=== PATIENT | male | born 1950 | race Caucasian/White ===

== ENCOUNTER 2024-09-02 09:16 | Inpatient (IN) | payer OTHER, SELFPAY ==
[2024-09-02] VITALS (13 sets, daily range): BP systolic 128–175; BP diastolic 52–76; PULSE 62–89; RESP 16–26; TEMP 36.1–37.3; O2SAT 92–99; BMI 27.4
--- NOTE | ~2024-09-02 | XR_ITS ---
EXAMINATION: XR CHEST CLINICAL INFORMATION: SOB COMPARISON: CXR on 04/06/12 TECHNIQUE: Frontal view of the chest was obtained. FINDINGS: The cardiac silhouette is normal. There is mild diffuse bronchial wall thickening. There are no areas of consolidation. There are no pleural effusions or pneumothoraces. The bones and soft tissues are unremarkable for the patient's age. XR/XR chest 1V IMPRESSION: Bronchial wall thickening may be infectious and/or inflammatory in etiology. Electronically signed by: Alicia King MD 09/02/2024 09:57 AM [facility] RE[facility]OL[facility]
--- NOTE | ~2024-09-02 | CT_ITS ---
EXAMINATION: CT SOFT TISSUE NECK WITHOUT CONTRAST CLINICAL INFORMATION: Swelling. Difficulty swallowing. COMPARISON: CT neck dated 03/26/2007. TECHNIQUE: Contiguous axial CT images of the cervical soft tissues were obtained without contrast. Sagittal and coronal reformats were provided and reviewed. This CT examination was performed using dose optimization techniques as appropriate, variously including the following: *Automated exposure control *Adjustment of mA and/or kV according to patient size (this includes techniques or standardized protocols for targeted exams where dose is matched to indication/reason for exam; i.e. extremities or head) *Use of iterative reconstruction technique DOSE: 520 mGycm. FINDINGS: No cervical adenopathy is identified. The parotid glands are homogeneous in attenuation. The submandibular glands are normal. No contour abnormality is seen within the oral cavity or pharyngeal mucosal space. The laryngeal structures are unremarkable. The parapharyngeal fat is preserved. No extramucosal soft tissue mass or fluid collection is seen. No retropharyngeal fluid collection is seen. The thyroid gland is normal. The superior mediastinum is unremarkable. Mild emphysematous changes within the lung apices. The lung apices are otherwise clear. The mastoid air cells and visualized portions of the paranasal sinuses are well aerated. The temporomandibular joints are normal. No periapical disease is identified. No osseous abnormalities are seen. The imaged portions of the brain parenchyma are unremarkable. CT/CT soft tissue neck wo IV con IMPRESSION: Unremarkable examination. Electronically signed by: Jefferson Anderson MD 09/02/2024 12:22 PM [facility]
--- NOTE | 2024-09-02 09:54 | ED.SOB ---
HPI - SOB/Dyspnea General Chief Complaint: Dyspnea Stated Complaint: Sob, throat sore Time Seen by Provider: 09/02/24 09:40 Source: patient, family, old records reviewed and puffer tender Mode of arrival: ambulatory Limitations: no limitations History of Present Illness ED Provider: JEAN PAUL DELCID Narrative: 74 yo male with prostate cancer currently being monitored, emphysema, HTN, HLD, GERD, anemia, prior warfarin use but hx of UGIB, new afib, 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 He has a dry mouth and feels like his throat is swollen. He denies any other pain, no n/v/d. No fevers. He feels like things are swelling and now it is worse. No sick contacts reported. family reports UGIB from stomach ulcers in the past - offered watchman in may but refused MD elicited complaint: shortness of breath Pertinent past history: other Onset (ago): day(s) (7) Timing: progressively worsening Severity: moderate Exacerbating factors: lying flat and coughing Relieving factors: rest Known history of: COPD (emphysema) Associated symptoms: cough, chest congestion and other (sore throat) Treatment prior to arrival: none Related Data Home Medications ?Medication ?Instructions ?Recorded ?Confirmed amlodipine 5 mg tablet 5 mg PO BID 09/02/24 09/02/24 clopidogrel 75 mg tablet 75 mg PO DAILY 09/02/24 09/02/24 eszopiclone 2 mg tablet 2 mg PO BEDTIME Insomnia 09/02/24 09/02/24 gemfibrozil 600 mg tablet 600 mg PO BID 09/02/24 09/02/24 ipratropium 20 mcg-albuterol 100 1 puff inhalation Q4-6H PRN 09/02/24 09/02/24 mcg/actuation mist for inhalation Shortness Of Breath Or Wheezing (Combivent Respimat) lovastatin 40 mg tablet 40 mg PO DAILY 09/02/24 09/02/24 metoprolol succinate 50 mg 50 mg PO BEDTIME 09/02/24 09/02/24 tablet,extended release 24 hr metoprolol succinate 50 mg 100 mg PO DAILY 09/02/24 09/02/24 tablet,extended release 24 hr omeprazole 20 mg capsule,delayed 20 mg PO BID 09/02/24 09/02/24 release quetiapine 100 mg tablet 300 mg PO BEDTIME 09/02/24 09/02/24 tramadol 50 mg tablet 100 mg PO Q6H 09/02/24 09/02/24 Allergies Allergy/AdvReac Type Severity Reaction Status Date / Time lisinopril [LISINOPRIL] Allergy Unknown ANGIOEDEMA Verified 09/02/24 09:21 Review of Systems Review of Systems: Constitutional : No Fever, No Chills ENT/Mouth : No Hoarseness, pos sore throat, No Rhinorrhea Eyes: No Redness, No Discharge, No Vision Changes Cardiovascular : No Chest Pain, positive SOB, positive Dyspnea on Exertion, No Edema Respiratory : positive Cough, No Sputum, no Wheezing, Gastrointestinal : No Nausea, No Vomiting, No Diarrhea, No abdominal Pain Genitourinary : No Dysuria, No Hematuria Musculoskeletal : No joint pain, No Myalgias Skin : No rash Neuro : No Weakness, No Numbness, No Headache Psych : No anxiety, depression All other systems reviewed and are negative [facility] Past Medical History Attestation statement: The following information was validated with the patient. Source: obtained from family Medical History Emphysema of lung HTN (hypertension) HLD (hyperlipidemia) Prostate cancer CVA (cerebral vascular accident) Social History Social History (Updated 09/02/24 @ 10:34 by Karis Ly DO) Patient Tobacco Use Status: Current everyday Tobacco user Smoked in Last 30 Days: Yes Use of substances other than those prescribed or required for medical reasons: No Advance Directives: No Advance Directives Information Provided: Yes Physical Exam Vital Signs: Vital Signs: Last Vital Signs Temp 98.0 F 09/02/24 13:39 Pulse 67 09/02/24 13:40 Resp 18 09/02/24 13:40 BP 148/54 H 09/02/24 13:39 Pulse Ox 93 09/02/24 13:30 O2 Del Method Room Air 09/02/24 13:30 BMI result Body Mass Index 27.4 Appearance: Alert. Oriented X3. No acute distress. Eyes: Pupils equal, round and reactive to light. chronic boggy under eye area per family ENT: Pharynx dry MM, no angiodema no exudates no lesions in mouth no visible swelling Neck: Normal inspection. Neck supple. no hard lesions or mass CVS: Normal heart rate and rhythm. Pulses normal. Respiratory: No respiratory distress. Breath sounds slightly diminished Abdomen: Soft and nontender. rectal: brown stools no melena Skin: Skin warm and dry. Normal skin color. Normal skin turgor. Extremities: No lower extremity edema. No calf ttp Neuro: Oriented X 3. No motor deficit. No sensory deficit. Medications Administered Discontinued Medications Generic Name Dose Route Start Last Admin Trade Name Daksha PRN Reason Stop Dose Admin Albuterol/Ipratropium 3 ml 09/02/24 13:37 09/02/24 13:40 Albuterol/Iprat 2.5/0.5mg 3 Ml Ampul.Neb INHALE 09/02/24 13:38 3 ml ONCE ONE Administration Albuterol Sulfate 2.5 mg/ 0 mg 09/02/24 10:23 09/02/24 10:27 Albuterol/Ipratropium 3 ml INHALE 09/02/24 10:24 5 dose ONCE ONE Administration Methylprednisolone Sodium Succinate 60 mg 09/02/24 10:35 09/02/24 10:52 Methylprednisolone Sod Succ 125 Mg/2 Ml Vial IVPUSH 09/02/24 10:36 60 mg ONCE ONE Administration Pantoprazole Sodium 40 mg 09/02/24 12:00 09/02/24 12:49 Pantoprazole Sodium 40 Mg/10 Ml Vial IVPUSH 09/02/24 12:01 40 mg ONCE ONE Administration Medical Decision Making Medical Decision Making MDM Narrative: 74 yo male with prostate cancer currently being monitored, emphysema, HTN, HLD, anemia, prior warfarin use but UGIB, new afib, GERD, CVA with dysarthria on plavix here with c/o sore throat and worsening dyspnea no obvious swelling or neck lesion on exam but he feels something is swollen inside at this time labs, viral panel, strep swab, neb and IV steroids - will obtain CXR and CT neck for any mass. He has no angioedema on my exam. I need records on patient from [facility] or [facility] - we have requested them. Differential Diagnosis Differential Diagnoses: The differential diagnosis associated with the presentation includes viral syndrome, mass, URI, allergy Admission/Observation Consideration of admission/observation: Escalation of care including admission/observation considered admit for GIB, anemia, mild ANDERSON started on blood transfusion Consult Healthcare Provider Management of the patient was discussed with: Hospitalist (will admit) and Telegraph Inspector (Dr. Yonathan cervantes) Lab Data MDM Lab Attestation statement: I reviewed the patient's lab results. 09/02/24 10:40 09/02/24 10:40 Labs: Lab Results 09/02/24 09/02/24 09/02/24 Range/Units 10:40 11:33 12:06 WBC 6.4 (4.8-10.8) X10*3/uL RBC 2.83 L (4.60-5.80) X10*6/uL Hgb 7.8 L (14.0-18.0) g/dl Hct 25.5 L (42.0-52.0) % MCV 90.1 (80.0-98.0) fL MCH 27.6 (27.0-33.0) pg MCHC 30.6 L (31.0-36.0) g/dl RDW 15.9 (11.0-16.0) % Plt Count 179 (160-400) X10*3/uL MPV 10.6 (9.4-12.4) fL Immature Gran % (Auto) 0.6 H (0.0-0.4) % Neut % (Auto) 73.8 H (45-73) % Lymph % (Auto) 14.2 L (20-40) % [place] % (Auto) 9.7 (2-11) % Eos % (Auto) 1.2 (0-4) % Baso % (Auto) 0.5 (0-2) % Lymph # (Auto) 0.9 L (1.2-4.9) X10*3/uL [place] # (Auto) 0.6 (0.1-1.2) X10*3/uL Eos # (Auto) 0.1 (0.0-0.4) X10*3/uL Baso # (Auto) 0.0 (0.0-0.2) X10*3/uL Abs Immat Gran (auto) 0.04 H (0.00-0.03) X10*3/uL Absolute Neuts (auto) 4.7 (2.0-8.3) x10*3/uL Absolute Nucleated RBC 0.040 H (0.0-0.012) X10*3/uL Nucleated RBC % (auto) 0.6 H (0.0-0.2) /100WBC Sodium 145 (135-145) mmol/L Potassium 4.6 (3.3-5.1) mmol/L Chloride 115 H (96-108) mmol/L Carbon Dioxide 19 L (22-29) mmol/L Anion Gap 16 (12-20) BUN 13 (9-16) mg/dL Creatinine 1.56 H (0.5-1.4) mg/dL Estim Creat Clear Calc 40.0 Estimated GFR 44 Random Glucose 163 H (60-115) mg/dL Calcium 8.6 (8.4-10.2) mg/dL Troponin I High Sens 5.6 (<3.5-35.0) ng/L B-Natriuretic Peptide 507 H (<100) pg/mL Stool Occult Blood POSITIVE (NEGATIVE) Influenza Type A (PCR) NEGATIVE (Negative) Influenza Type B (PCR) NEGATIVE (Negative) RSV RNA Qual (PCR) NEGATIVE (Negative) SARS-CoV-2 RNA (RT-PCR) NEGATIVE (Negative) S. pyogenes GrpA RENATA Negative (Negative) Blood Type A Negative Antibody Screen NEGATIVE Crossmatch See Detail Independent Interpretation I performed an independent interpretation of an: EKG, Plain X-Ray (no swelling or mass) and CT Scan (normal) Interpretation: Rate: 66 Rhythm: aflutter [place]: normal Normal QRS complex. ST T wave : flutter waves but no overt MICHELLE qTC: 434 prior studies: no prior The study has been interpreted contemporaneously by me. . Radiology Impression Discussion of test interpretation with radiology: I have reviewed the radiologist's reading. Independent Historian Clinical information obtained from an independent historian. History obtained from or confirmed by: Other (family) Discharge Plan Discharge Clinical Impression: ABLA (acute blood loss anemia), Guaiac positive stools, ANDERSON (acute kidney injury) Patient Disposition: Admitted As Inpatient Print Language: [place] Island[place]
--- NOTE | 2024-09-02 10:14 | ECG_ITS ---
Test Reason : DYSPNEA Blood Pressure : / mmHG Vent. Rate : 066 BPM Atrial Rate : 267 BPM P-R Int : 000 ms QRS Dur : 076 ms QT Int : 414 ms P-R-T Axes : 000 038 081 degrees QTc Int : 434 ms Atrial flutter with variable A-V block Low voltage QRS Cannot rule out Anterior infarct , age undetermined Abnormal ECG When compared with ECG of 06-APR-2012 19:21, Atrial flutter has replaced Sinus rhythm Non-specific change in ST segment in Inferior leads Nonspecific T wave abnormality now evident in Anterolateral leads Referred By: Karis yL Electronically Signed By:Kan Vasquez
[2024-09-02] MEDS: Albuterol Sulfate 2.5 MG, Albuterol/Iprat 2.5/0.5MG 3 ML 3 ML INHALE (10:27)
[2024-09-02 10:46] LABS: MANUAL DIFF FLAG NO
[2024-09-02 10:47] LABS: Basophils Percent Auto 0.5 % (0-2); Eosinophils Absolute Auto 0.1 X10*3/uL (0.0-0.4); Eosinophils Percent Auto 1.2 % (0-4); Hematocrit 25.5 % (42.0-52.0); Hemoglobin 7.8 g/dl (14.0-18.0); Imm Gran Abs Auto 0.04 X10*3/uL (0.00-0.03); Imm Gran Pct Auto 0.6 % (0.0-0.4); Lymphocytes Absolute Auto 0.9 X10*3/uL (1.2-4.9); Lymphocytes Percent Auto 14.2 % (20-40); Mean Corpuscular HGB Conc 30.6 g/dl (31.0-36.0); Mean Corpuscular Hemoglobin 27.6 pg (27.0-33.0); Mean Corpuscular Volume 90.1 fL (80.0-98.0); Mean Platelet Volume 10.6 fL (9.4-12.4); Monocytes Absolute Auto 0.6 X10*3/uL (0.1-1.2); Monocytes Percent Auto 9.7 % (2-11); NRBC Pct Auto 0.6 /100WBC (0.0-0.2); Neutrophils Absolute Auto 4.7 x10*3/uL (2.0-8.3); Neutrophils Percent Auto 73.8 % (45-73); Platelet Count 179 X10*3/uL (160-400); Red Blood Count 2.83 X10*6/uL (4.60-5.80); Red Cell Distribution Width 15.9 % (11.0-16.0); White Blood Count 6.4 X10*3/uL (4.8-10.8)
[2024-09-02] MEDS: methylPREDNISolone Sod Succ 125 MG/2 ML VIAL 60 MG IVPUSH (10:52)
[2024-09-02 10:56] LABS: IDNOW Serial# 58CA691E; Strep A Nucleic Acid Negative (Negative)
[2024-09-02 11:02] LABS: Anion Gap 16 (12-20); Blood Urea Nitrogen 13 mg/dL (9-16); Calcium 8.6 mg/dL (8.4-10.2); Carbon Dioxide 19 mmol/L (22-29); Chloride 115 mmol/L (96-108); Estimated Glomerular Filt Rate 44; Glucose Random 163 mg/dL (60-115); Potassium 4.6 mmol/L (3.3-5.1); Sodium 145 mmol/L (135-145)
[2024-09-02 11:09] LABS: B Type Natriuretic Peptide 507 pg/mL (<100)
[2024-09-02 11:11] LABS: Troponin-I High Sensitivity 5.6 ng/L (<3.5-35.0)
[2024-09-02 12:02] LABS: Influenza A PCR NEGATIVE (Negative); Influenza B PCR NEGATIVE (Negative); Resp Syncy Virus RNA Qual PCR NEGATIVE (Negative); SARS COV2 PCR INHOUSE NEGATIVE (Negative)
[2024-09-02 12:23] LABS: OBS Int Ctl Valid YES; OBS1 POSITIVE (NEGATIVE)
[2024-09-02] MEDS: Pantoprazole Sodium 40 MG/10 ML VIAL IVPUSH (12:49)
[2024-09-02] MEDS: Albuterol/Iprat 2.5/0.5MG 3 ML AMPUL.NEB INHALE (13:40)
--- NOTE | 2024-09-02 13:40 | PC.NURSE ---
RBC's delivered to ED. Upon beginning treatment, computer system in need of rebooting. Once system ready, Pt and product verified with LUCY Sullivan RBC bag spiked, tubing primed and treatment programed into pump. During this Pt and family member with multitude of questions and requests for food and bathroom. This RN advises that blood transfusion is time sensitive and all needs can be addresses after treatment is started. IV tubing applied to Pt and start button hit. Pump quickly alerts to an air bubble requiring additional priming. At this time, Pt and family member demand Pt be placed on a bed reynolds urgently stating Pt cannot wait. Bed reynolds applied and priming completed. Treatment restarted without complication and Pt tolerated well. RT to bedside for eval/treatment.
--- NOTE | 2024-09-02 13:54 | PHA.MEDREC ---
Addendum entered by Vivian Guaman RPh 09/02/24 14:34: MED REC REVIEWED BY JABIER Original Note: Pharmacy Consult ? Medication Reconciliation Pharmacy has completed the medication reconciliation. Spoke to pt's family member to confirm meds.
--- NOTE | 2024-09-02 15:08 | P.HPHOSP_ITS ---
History of Present Illness Date of Service: 09/02/24 Chief Complaint: Heme positive stools 74 yo male with prostate cancer currently being monitored, emphysema, HTN, HLD, GERD, anemia, prior warfarin use but hx of UGIB, new afib, 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 He has a dry mouth and feels like his throat is swollen. Also noted to have heme-positive stools in ER. When discussed with patient (via daughter interpreting) patient has been nauseous and vomited several times in the last several days. States his stools have been dark. He continues to smoke cigarettes daily. He also notes that he has a more productive cough over the last several days. He has a history of gastric ulcer which prompted the DC of Coumadin. Daughter states takes Plavix for severe peripheral vascular disease. CT scan in the ER soft tissue neck failed to demonstrate any acute abnormalities. Chest x-ray demonstrates peribronchial wall thickening thickening question infectious etiology. Review of Systems 2 Review of Systems: Denies chest pain Denies shortness of breath Denies nausea vomiting diarrhea Denies fever chills [facility] Medical History Emphysema of lung HTN (hypertension) HLD (hyperlipidemia) Prostate cancer CVA (cerebral vascular accident) Social History Patient Tobacco Use Status: Current everyday Tobacco user Smoked in Last 30 Days: Yes Use of substances other than those prescribed or required for medical reasons: No Advance Directives: No Advance Directives Information Provided: Yes Meds Allergies Allergy/AdvReac Type Severity Reaction Status Date / Time lisinopril [LISINOPRIL] Allergy Unknown ANGIOEDEMA Verified 09/02/24 09:21 Active Medications: Current Medications Acetaminophen (Acetaminophen 325 Mg Tablet) 650 mg PO Q6H PRN PRN Reason: Pain, Mild (Pain Scale 1-3), fever or headache Albuterol/Ipratropium (Albuterol/Iprat 2.5/0.5mg 3 Ml Ampul.Neb) 3 ml INHALE Q4H PRN PRN Reason: wheezing Amlodipine Besylate (Amlodipine Besylate 5 Mg Tablet) 5 mg PO BID WILL; Protocol Calcium Carbonate (Calcium Carbonate 750 Mg Tab.Chew) 750 mg PO Q4H PRN PRN Reason: Heartburn Gemfibrozil (Gemfibrozil 600 Mg Tablet) 600 mg PO BID WILL Magnesium Hydroxide (Milk Of Magnesia 30 Ml Oral.Susp) 30 ml PO DAILY PRN PRN Reason: Constipation Melatonin (Melatonin 3 Mg Tablet) 6 mg PO BEDTIME PRN PRN Reason: Insomnia Methylprednisolone Sodium Succinate (Methylprednisolone Sod Succ 40 Mg/Ml Vial) 40 mg IVPUSH BID ONE Stop: 09/02/24 22:01 Metoprolol Succinate (Metoprolol Succinate Er 50 Mg Tab.Er.24h) 50 mg PO BEDTIME WILL; Protocol Metoprolol Succinate (Metoprolol Succinate Er 100 Mg Tab.Er.24h) 100 mg PO DAILY WILL; Protocol Nicotine (Nicotine 14 Mg Patch.Td24) 14 mg TRANSDERMA DAILY WILL Ondansetron HCl (Ondansetron Hcl 4 Mg/2 Ml Vial) 4 mg IVPUSH Q8H PRN PRN Reason: Nausea and Vomiting Pantoprazole Sodium (Pantoprazole Sodium 40 Mg/10 Ml Vial) 40 mg IVPUSH BID@0630,1630 [facility] Pravastatin Sodium (Pravastatin Sodium 40 Mg Tablet) 40 mg PO DAILY WILL Quetiapine Fumarate (Quetiapine Fumarate 300 Mg Tablet) 300 mg PO BEDTIME WILL Sodium Chloride (0.9 % Sodium Chloride Flush 3 Ml Syringe) 3 ml IVFLUSH QSHIFT WILL Tramadol HCl (Tramadol Hcl 50 Mg Tablet) 100 mg PO Q6H [facility] Home Medications ?Medication ?Instructions ?Recorded ?Confirmed ?Last Taken ?Type amlodipine 5 mg tablet 5 mg PO BID 09/02/24 09/02/24 09/02/24 09:00 History clopidogrel 75 mg tablet 75 mg PO DAILY 09/02/24 09/02/24 09/02/24 09:00 History eszopiclone 2 mg tablet 2 mg PO BEDTIME Insomnia 09/02/24 09/02/24 Unknown History gemfibrozil 600 mg tablet 600 mg PO BID 09/02/24 09/02/24 09/02/24 09:00 History ipratropium 20 mcg-albuterol 100 1 puff inhalation Q4-6H PRN 09/02/24 09/02/24 Unknown History mcg/actuation mist for inhalation Shortness Of Breath Or Wheezing (Combivent Respimat) lovastatin 40 mg tablet 40 mg PO DAILY 09/02/24 09/02/24 09/02/24 09:00 History metoprolol succinate 50 mg 50 mg PO BEDTIME 09/02/24 09/02/24 Unknown History tablet,extended release 24 hr metoprolol succinate 50 mg 100 mg PO DAILY 09/02/24 09/02/24 09/02/24 09:00 History tablet,extended release 24 hr omeprazole 20 mg capsule,delayed 20 mg PO BID 09/02/24 09/02/24 09/02/24 09:00 History release quetiapine 100 mg tablet 300 mg PO BEDTIME 09/02/24 09/02/24 Unknown History tramadol 50 mg tablet 100 mg PO Q6H 09/02/24 09/02/24 09/02/24 09:00 History Physical Exam 2 Vital Signs and Narrative: Vital Signs: Last Vital Signs Temp 98.0 F 09/02/24 13:39 Pulse 67 09/02/24 13:40 Resp 18 09/02/24 13:40 BP 148/54 H 09/02/24 13:39 Pulse Ox 93 09/02/24 13:30 O2 Del Method Room Air 09/02/24 13:30 BMI result Body Mass Index 27.4 Const: Other: Awake alert no acute distress HEENT: Other: No stridor appreciated Resp: Other: Diminished at bases with coarse rhonchi throughout Cardio: Other: No S4; positive S1-S2; no S3 murmurs rubs or gallops GI: Other: Soft nontender nondistended normoactive bowel sounds. No peritoneal signs Extrem: Other: No edema bilaterally Results Labs 09/02/24 10:40 09/02/24 10:40 Labs: Laboratory Results - last 24 hr 09/02/24 09/02/24 09/02/24 10:40 11:33 12:06 MCV 90.1 MCH 27.6 MCHC 30.6 L RDW 15.9 Plt Count 179 MPV 10.6 Immature Gran % (Auto) 0.6 H Neut % (Auto) 73.8 H Lymph % (Auto) 14.2 L [place] % (Auto) 9.7 Eos % (Auto) 1.2 Baso % (Auto) 0.5 Lymph # (Auto) 0.9 L [place] # (Auto) 0.6 Eos # (Auto) 0.1 Baso # (Auto) 0.0 Abs Immat Gran (auto) 0.04 H Absolute Neuts (auto) 4.7 Absolute Nucleated RBC 0.040 H Nucleated RBC % (auto) 0.6 H Anion Gap 16 Estim Creat Clear Calc 40.0 Estimated GFR 44 Random Glucose 163 H Calcium 8.6 Troponin I High Sens 5.6 B-Natriuretic Peptide 507 H Stool Occult Blood POSITIVE Influenza Type A (PCR) NEGATIVE Influenza Type B (PCR) NEGATIVE RSV RNA Qual (PCR) NEGATIVE SARS-CoV-2 RNA (RT-PCR) NEGATIVE S. pyogenes GrpA RENATA Negative Blood Type A Negative Antibody Screen NEGATIVE Crossmatch See Detail Imaging Radiologist's Impressions: Impressions Chest X-Ray 09/02/24 09:25 IMPRESSION: Bronchial wall thickening may be infectious and/or inflammatory in etiology. Electronically signed by: Alicia King MD 09/02/2024 09:57 AM EST RP Soft Tissue Neck CT 09/02/24 10:14 IMPRESSION: Unremarkable examination. Electronically signed by: Jefferson Anderson MD 09/02/2024 12:22 PM EST RP Assessment and Plan (1) ABLA (acute blood loss anemia): Status: Acute (2) Guaiac positive stools: Status: Acute (3) PVD (peripheral vascular disease): Status: Acute (4) ANDERSON (acute kidney injury): Status: Acute (5) COPD (chronic obstructive pulmonary disease): Qualifiers: COPD type: unspecified COPD Qualified Code(s): J44.9 - Chronic obstructive pulmonary disease, unspecified Status: Acute Plan 74 yo male with prostate cancer currently being monitored, emphysema, HTN, HLD, GERD, anemia, prior warfarin use but hx of UGIB, new afib, CVA with dysarthria on plavix presents with 7 days of worsening shortness of breath and sore throat. Workup in ER including CT of soft tissue neck failed to demonstrate any acute abnormalities. Patient noted to have an O2 requirement at this time. Also noted to be anemic requiring blood transfusion. 1. Acute blood loss anemia/guaiac positive stools -transfuse patient to maintain hemoglobin greater than or equal to 10 -IV PPI; history of GI bleed -hold Plavix and aspirin -GI consult -follow daily CBC 2. Peripheral vascular disease -hold Plavix and aspirin until GI workup complete -restart upon GI recommendations 3. Acute kidney injury -likely prerenal given limited intake -gentle volume repletion given mild elevation of BNP (will need echo) -follow renals/divalents 4. COPD exacerbation (describes worsening shortness of breath and now with O2 requirement along with productive cough ) -pulse dose Solu-Medrol -DuoNebs q.4 hours p.r.n. while awake -titrate O2 to maintain sats greater than equal to 90% -p.o. doxycycline DNR DNI Pneumatics Patient will require at least 2 midnights going forward of inpatient hospitalization for treatment of acute blood loss anemia and COPD exacerbation with blood products and specialty consultation. This can not be achieved in a lesser acute setting Quality Stroke Does the patient have a stroke diagnosis?: No VTE Prior VTE?: No VTE Risk Level:: Medical - moderate - high VTE Device Contraindication: N/A - Device Ordered VTE Drug Contraindication: Treatment Not Indicated
[2024-09-02] MEDS: Nicotine 14 MG PATCH.TD24 TRANSDERMA (15:45)
--- NOTE | 2024-09-02 16:24 | PC.NURSE ---
Pt resting comfortably with eyes closed. Pt in need of frequent reminders to keep RUE straight to allow for blood transfusion to flow continuously.
--- NOTE | 2024-09-02 17:55 | PC.NURSE ---
17:23 Blood transfusion ended. Delay in total transfusion time d/t Pt needing repeated encouragement and repositioning for proper transfusion flow. Pt tolerated treatment well VSS, A&Ox3, and afebrile.
[2024-09-02] MEDS: Lactated Ringers 1,000 ML 100 ML IVCONT (18:29)
--- NOTE | 2024-09-02 18:58 | PC.NURSE ---
Change of shift report given and care of Pt relinquished to LUCY Back.
[2024-09-02] MEDS: Metoprolol Succinate ER 50 MG TAB.ER.24H PO (20:53)
[2024-09-02] MEDS: QUEtiapine Fumarate 300 MG TABLET PO (20:54)
[2024-09-02] MEDS: amLODIPine Besylate 5 MG TABLET PO (20:54)
[2024-09-02] MEDS: gemfibroziL 600 MG TABLET PO (20:54)
[2024-09-02] MEDS: methylPREDNISolone Sod Succ 40 MG/ML VIAL IVPUSH (20:54)
[2024-09-03] VITALS (16 sets, daily range): BP systolic 129–171; BP diastolic 58–77; PULSE 63–75; RESP 12–20; TEMP 36.2–37.1; O2SAT 91–99
[2024-09-03] MEDS: Lactated Ringers 1,000 ML 100 ML IVCONT (04:39)
[2024-09-03] MEDS: Pantoprazole Sodium 40 MG/10 ML VIAL IVPUSH ×2 (05:46→16:37)
[2024-09-03 06:44] LABS: Basophils Percent Auto 0.1 % (0-2); Hemoglobin 7.1 g/dl (14.0-18.0); Imm Gran Abs Auto 0.06 X10*3/uL (0.00-0.03); Imm Gran Pct Auto 0.6 % (0.0-0.4); Lymphocytes Absolute Auto 0.4 X10*3/uL (1.2-4.9); Lymphocytes Percent Auto 3.7 % (20-40); MANUAL DIFF FLAG SCAN; Mean Corpuscular HGB Conc 30.9 g/dl (31.0-36.0); Mean Corpuscular Hemoglobin 27.5 pg (27.0-33.0); Mean Corpuscular Volume 89.1 fL (80.0-98.0); Mean Platelet Volume 11.9 fL (9.4-12.4); Monocytes Absolute Auto 0.3 X10*3/uL (0.1-1.2); Monocytes Percent Auto 2.9 % (2-11); NRBC Pct Auto 0.4 /100WBC (0.0-0.2); Neutrophils Absolute Auto 8.9 x10*3/uL (2.0-8.3); Neutrophils Percent Auto 92.7 % (45-73); Platelet Count 161 X10*3/uL (160-400); Red Blood Count 2.58 X10*6/uL (4.60-5.80); SCAN SMEAR FLAG 1; White Blood Count 9.6 X10*3/uL (4.8-10.8)
[2024-09-03 07:02] LABS: Alanine Aminotransferase 45 U/L (0-40); Albumin Level 3.6 g/dL (3.5-5.0); Alkaline Phosphatase 102 U/L (39-117); Anion Gap 15 (12-20); Aspartate Amino Transferase 49 U/L (5-37); Bilirubin Total 0.5 mg/dL (0.0-1.0); Blood Urea Nitrogen 18 mg/dL (9-16); Calcium 8.6 mg/dL (8.4-10.2); Carbon Dioxide 19 mmol/L (22-29); Chloride 114 mmol/L (96-108); Creatinine Clr Calc Pharmacy 44.5; Estimated Glomerular Filt Rate 49; Glucose Random 182 mg/dL (60-115); Potassium 4.5 mmol/L (3.3-5.1); Sodium 143 mmol/L (135-145); Total Protein 6.3 g/dL (6.5-8.0)
[2024-09-03 07:42] LABS: SLIDE REVIEW VERIFIED
--- NOTE | 2024-09-03 08:39 | PC.RT ---
RT in room to give one time neb ordered. Pt is asleep and family refused RT to wake pt to give tx. Family made aware that pt has a PRN order for nebs and can get one when he wakes up if he is in distress.
[2024-09-03] MEDS: Pravastatin Sodium 40 MG TABLET PO (08:44)
[2024-09-03] MEDS: amLODIPine Besylate 5 MG TABLET PO ×2 (08:45→20:08)
[2024-09-03] MEDS: Metoprolol Succinate ER 100 MG TAB.ER.24H PO (08:45)
[2024-09-03] MEDS: gemfibroziL 600 MG TABLET PO ×2 (08:46→20:08)
[2024-09-03] MEDS: traMADoL HCL 50 MG TABLET 100 MG PO (08:46)
[2024-09-03] MEDS: Nicotine 14 MG PATCH.TD24 TRANSDERMA (08:47)
[2024-09-03] MEDS: Albuterol Sulfate 2.5 MG, Albuterol/Iprat 2.5/0.5MG 3 ML 3 ML INHALE (09:00)
--- NOTE | 2024-09-03 10:36 | PM.EVENT ---
Event Note Date of Service: 09/03/24 Event Note: GI consult dictated Plan for EGD today for further evaluation of UGIB Agree with transfusion, ppi. Time Spent With Patient Time: Total time managing care of this patient today ____ minutes.
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
--- NOTE | 2024-09-03 11:00 | HO.PM.IMPN ---
Subjective Subjective Date of Service: 09/03/24 Interval History: f/u on gib, acute blood loos anemia Physical Exam Vital Signs: Vital Signs: Last Vital Signs Temp 98.7 F 09/03/24 10:56 Pulse 66 09/03/24 10:56 Resp 16 09/03/24 10:56 BP 143/76 H 09/03/24 10:56 Pulse Ox 94 09/03/24 07:45 O2 Del Method Nasal Cannula 09/03/24 07:45 O2 Flow Rate 2 09/03/24 07:45 BMI result Body Mass Index 27.4 General: AO X 3, no acute distress Resp: CTA bilateral CVS: S1,S2,RRR GI: +BS, NT, no distention Skin: No rash Neuro: motor grossly intact Psych: appropriate affect Objective Data Active Medications Acetaminophen (Acetaminophen 325 Mg Tablet) 650 mg PO Q6H PRN PRN Reason: Pain, Mild (Pain Scale 1-3), fever or headache Albuterol/Ipratropium (Albuterol/Iprat 2.5/0.5mg 3 Ml Ampul.Neb) 3 ml INHALE Q4H PRN PRN Reason: wheezing Amlodipine Besylate (Amlodipine Besylate 5 Mg Tablet) 5 mg PO BID [facility]; Protocol Last Admin: 09/03/24 08:45 Dose: 5 mg Documented By: BERNICE Calcium Carbonate (Calcium Carbonate 750 Mg Tab.Chew) 750 mg PO Q4H PRN PRN Reason: Heartburn Gemfibrozil (Gemfibrozil 600 Mg Tablet) 600 mg PO BID [facility] Last Admin: 09/03/24 08:46 Dose: 600 mg Documented By: BERNICE Lactated Ringer's (Lr) 1,000 mls @ 100 mls/hr IVCONT .Q10H WILL Last Admin: 09/03/24 04:39 Dose: 100 mls/hr Documented By: NED Magnesium Hydroxide (Milk Of Magnesia 30 Ml Oral.Susp) 30 ml PO DAILY PRN PRN Reason: Constipation Melatonin (Melatonin 3 Mg Tablet) 6 mg PO BEDTIME PRN PRN Reason: Insomnia Metoprolol Succinate (Metoprolol Succinate Er 50 Mg Tab.Er.24h) 50 mg PO BEDTIME [facility]; Protocol Last Admin: 09/02/24 20:53 Dose: 50 mg Documented By: NED Metoprolol Succinate (Metoprolol Succinate Er 100 Mg Tab.Er.24h) 100 mg PO DAILY [facility]; Protocol Last Admin: 09/03/24 08:45 Dose: 100 mg Documented By: BERNICE Nicotine (Nicotine 14 Mg Patch.Td24) 14 mg TRANSDERMA DAILY [facility] Last Admin: 09/03/24 08:47 Dose: 14 mg Documented By: BERNICE Ondansetron HCl (Ondansetron Hcl 4 Mg/2 Ml Vial) 4 mg IVPUSH Q8H PRN PRN Reason: Nausea and Vomiting Pantoprazole Sodium (Pantoprazole Sodium 40 Mg/10 Ml Vial) 40 mg IVPUSH BID@0630,1630 [facility] Last Admin: 09/03/24 05:46 Dose: 40 mg Documented By: NED Pravastatin Sodium (Pravastatin Sodium 40 Mg Tablet) 40 mg PO DAILY [facility] Last Admin: 09/03/24 08:44 Dose: 40 mg Documented By: BERNICE Quetiapine Fumarate (Quetiapine Fumarate 300 Mg Tablet) 300 mg PO BEDTIME [facility] Last Admin: 09/02/24 20:54 Dose: 300 mg Documented By: NED Sodium Chloride (0.9 % Sodium Chloride Flush 3 Ml Syringe) 3 ml IVFLUSH QSHIFT [facility] Last Admin: 09/03/24 07:10 Dose: Not Given Documented By: BERNICE Non-Admin Reason: IV Running Tramadol HCl (Tramadol Hcl 50 Mg Tablet) 100 mg PO Q6H [facility] Last Admin: 09/03/24 08:46 Dose: 100 mg Documented By: BERNICE Labs 09/03/24 05:48 09/03/24 05:48 Labs: Laboratory Results - last 24 hr 09/02/24 09/02/24 09/02/24 10:40 11:33 12:06 MCV MCH MCHC RDW Plt Count MPV Immature Gran % (Auto) Neut % (Auto) Lymph % (Auto) [place] % (Auto) Eos % (Auto) Baso % (Auto) Lymph # (Auto) [place] # (Auto) Eos # (Auto) Baso # (Auto) Abs Immat Gran (auto) Absolute Neuts (auto) Absolute Nucleated RBC Nucleated RBC % (auto) Smear Tech's Comments Anion Gap 16 Estim Creat Clear Calc 40.0 Estimated GFR 44 Random Glucose 163 H Calcium 8.6 Total Bilirubin AST ALT Alkaline Phosphatase Troponin I High Sens 5.6 B-Natriuretic Peptide 507 H Total Protein Albumin Stool Occult Blood POSITIVE Influenza Type A (PCR) NEGATIVE Influenza Type B (PCR) NEGATIVE RSV RNA Qual (PCR) NEGATIVE SARS-CoV-2 RNA (RT-PCR) NEGATIVE Blood Type A Negative Antibody Screen NEGATIVE Crossmatch See Detail 09/03/24 05:48 MCV 89.1 MCH 27.5 MCHC 30.9 L RDW 16.0 Plt Count 161 MPV 11.9 Immature Gran % (Auto) 0.6 H Neut % (Auto) 92.7 H Lymph % (Auto) 3.7 L [place] % (Auto) 2.9 Eos % (Auto) 0.0 Baso % (Auto) 0.1 Lymph # (Auto) 0.4 L [place] # (Auto) 0.3 Eos # (Auto) 0.0 Baso # (Auto) 0.0 Abs Immat Gran (auto) 0.06 H Absolute Neuts (auto) 8.9 H Absolute Nucleated RBC 0.040 H Nucleated RBC % (auto) 0.4 H Smear Tech's Comments VERIFIED Anion Gap 15 Estim Creat Clear Calc 44.5 Estimated GFR 49 Random Glucose 182 H Calcium 8.6 Total Bilirubin 0.5 AST 49 H ALT 45 H Alkaline Phosphatase 102 Troponin I High Sens B-Natriuretic Peptide Total Protein 6.3 L Albumin 3.6 Stool Occult Blood Influenza Type A (PCR) Influenza Type B (PCR) RSV RNA Qual (PCR) SARS-CoV-2 RNA (RT-PCR) Blood Type Antibody Screen Crossmatch Assessment and Plan (1) GI bleeding: Status: Acute Plan 74 yo male with prostate cancer currently being monitored, emphysema, HTN, HLD, GERD, anemia, prior warfarin use but hx of UGIB, new afib, CVA with dysarthria on plavix presents with 7 days of worsening shortness of breath and sore throat. Workup in ER including CT of soft tissue neck failed to demonstrate any acute abnormalities. Patient noted to have an O2 requirement at this time. Also noted to be anemic requiring blood transfusion. 1. Acute blood loss anemia/guaiac positive stools -transfuse patient to maintain hemoglobin greater than or equal to 10 -IV PPI, hold Plavix and aspirin -GI following for egd today -follow daily CBC 2. Peripheral vascular disease -hold Plavix and aspirin until GI workup complete -restart upon GI recommendations 3. Acute kidney injury -likely prerenal given limited intake -gentle volume repletion given mild elevation of BNP (will need echo) -follow renals/divalents 4. COPD exacerbation (describes worsening shortness of breath and now with O2 requirement along with productive cough ) -hold further steroid -DuoNebs q.4 hours p.r.n. while awake -titrate O2 to maintain sats greater than equal to 90% -hold doxy 5. Mild metabolic acidosis--d/t renal failure, monitor DNR DNI Pneumatics Need for inpat: GIB work, needs transfusion and egd Quality Stroke Does the patient have a stroke diagnosis?: No VTE Prior VTE?: No VTE Risk Level:: Medical - moderate - high VTE Device Contraindication: N/A - Device Ordered VTE Drug Contraindication: Treatment Not Indicated
--- NOTE | 2024-09-03 11:16 | CONS_ITS ---
DATE OF SERVICE: 09/03/2024 REFERRING PHYSICIAN: Dr. Batista REASON FOR CONSULTATION: GI bleeding. HISTORY OF PRESENT ILLNESS: The patient is a pleasant 74-year-old gentleman admitted to the hospital after presenting to the emergency room yesterday with complaints of nausea, nonbloody vomiting, and dark stools as well as shortness of breath. He has a history of peptic ulcer disease and previously underwent endoscopy many years ago documenting ulcers. He does smoke and has been on Plavix for peripheral vascular disease and complains of a dry mouth. He was evaluated in the emergency department with laboratory studies showing a hematocrit of 25.5 with no baseline available. Rectal examination showed brown stool which was Hemoccult positive, blood transfusions were ordered. The patient denies significant alcohol intake and has no family history of stomach cancer that he is aware of, the history is obtained with his son interpreting as the patient speaks [place]. PAST MEDICAL HISTORY: 1. Hypertension. 2. Hyperlipidemia. 3. Gastroesophageal reflux disease. 4. COPD. 5. Prostate cancer. 6. CVA. 7. Peptic disease as above. CURRENT MEDICATIONS: His current medication list is reviewed in the chart. ALLERGIES: LISINOPRIL. FAMILY HISTORY: This is reviewed with the patient and is noncontributory. SOCIAL HISTORY: There is no current substance abuse. He does use tobacco. REVIEW OF SYSTEMS: SKIN: No pruritus. HEENT: Negative. CARDIOPULMONARY: No shortness of breath or chest pain. GASTROINTESTINAL: As above. GENITOURINARY: Negative. NEUROPSYCHIATRIC: Negative. PHYSICAL EXAMINATION: GENERAL: Shows a pleasant male, lying comfortably in bed. VITAL SIGNS: Stable. SKIN: Anicteric. HEENT: Shows no scleral icterus. NECK: Without lymphadenopathy or thyromegaly. LUNGS: Show some diminished breath sounds. HEART: Shows a regular rate and rhythm. S1, S2. No murmur. ABDOMEN: Soft without focal masses or tenderness. Bowel sounds are present. No organomegaly is noted. EXTREMITIES: Without edema. LABORATORY DATA: Reviewed. IMAGING: EKG shows atrial flutter with variable AV block. IMPRESSION: Gastrointestinal bleeding, his presentation appears consistent with an upper gastrointestinal bleed. I agree with transfusing him as you are doing and continuing a proton pump inhibitor. I have discussed endoscopy with him for further evaluation and to assess for the source of his upper gastrointestinal bleeding, which could be peptic ulcer disease, erosive esophagitis, arteriovenous malformations, or gastric mass lesion and he understands risks and benefits and agrees to proceed. Thanks for asking me to see him. I will follow him in the hospital with you. MD JUAN LUIS Garcia/MARY / [phone]
[2024-09-03] MEDS: Albuterol/Iprat 2.5/0.5MG 3 ML AMPUL.NEB INHALE ×2 (13:55→20:19)
--- NOTE | 2024-09-03 15:33 | PC.NURSE ---
author requested dr. rodriguez to review patient ER and hospitalist reports and that patient is 91% 2 Lvia NC. and Vs results and a -flutter and that patient has bilateral base crackles, diminished throughout and respiratory wheezes on expiration in right upper lobe. Daughter at bedside. dr. rodriguez assessing patient, reviewing and speaking with daughter.
--- NOTE | 2024-09-03 16:05 | P.EN_ITS ---
Event Note Date of Service: 09/04/24 Event Note: The patient's EGD was canceled due to severe shortness of breath and hypoxia while on 2 liters of oxygen. Additional information obtained from Dr. Henry highlights a significant past medical history, including diabetes mellitus, peripheral arterial disease (PAD), COPD, gastritis, prostate cancer, hyperlipidemia, and atrial flutter. The patient presented for evaluation of left atrial appendage occlusion with a Watchman device due to a history of atrial flutter and inability to tolerate anticoagulation secondary to prior GI bleeding. He is on aspirin and Plavix for PAD. The patient denies symptoms of palpitations, dizziness, or syncope. He reports longstanding dyspnea on exertion and claudication symptoms, which have not changed recently. Recent cardiac findings include: * Last EKG: Right atrial flutter with variable conduction, heart rate of 75 bpm. * November 2023 echocardiogram: Preserved LVEF with [id number] dilation of both the left and right atria. Presently, the patient may be fluid overloaded, evidenced by positive JVD and a BNP > 500. His last hemoglobin from October 2023 was 14 g/dL. Plan: IV Lasix for fluid management and consult Cardiology to reassess the approach to atrial flutter and left atrial appendage occlusion. Monitor re spiratory status closely with ongoing oxygen therapy. Time Spent With Patient Time: Total time managing care of this patient today ____ minutes.
[2024-09-03 16:34] LABS: Hemoglobin 9.1 g/dl (14.0-18.0)
[2024-09-03] MEDS: Furosemide 40 MG/4 ML VIAL IVPUSH (16:37)
--- NOTE | 2024-09-03 16:53 | PM.EVENT ---
Event Note Date of Service: 09/03/24 Event Note: GI-Course noted as outlined in Dr. Zhang's recent note. I agree with the current plan of further transfusions and stabilization/reassessment of his cardiopulmonary status. We can reschedule his upper endoscopy once things have improved. At this time there is no indication for an urgent upper endoscopy. However, please contact us if anything changes regarding signs of active bleeding. Continue PPI and follow up of labs. Thanks Time Spent With Patient Time: Total time managing care of this patient today ____ minutes.
[2024-09-03] MEDS: QUEtiapine Fumarate 300 MG TABLET PO (20:08)
[2024-09-03] MEDS: 0.9 % Sodium Chloride Flush 3 ML SYRINGE IVFLUSH (20:09)
[2024-09-03] MEDS: Metoprolol Succinate ER 50 MG TAB.ER.24H PO (20:09)
[2024-09-04] VITALS (13 sets, daily range): BP systolic 128–170; BP diastolic 60–78; PULSE 64–70; RESP 18–20; TEMP 36.1–37; O2SAT 92–98
[2024-09-04] MEDS: Pantoprazole Sodium 40 MG/10 ML VIAL IVPUSH ×2 (05:50→15:47)
[2024-09-04 07:00] LABS: MANUAL DIFF FLAG NO
[2024-09-04 07:09] LABS: Basophils Percent Auto 0.1 % (0-2); Eosinophils Percent Auto 0.4 % (0-4); Hematocrit 27.8 % (42.0-52.0); Hemoglobin 8.8 g/dl (14.0-18.0); Imm Gran Abs Auto 0.05 X10*3/uL (0.00-0.03); Imm Gran Pct Auto 0.6 % (0.0-0.4); Lymphocytes Absolute Auto 1.1 X10*3/uL (1.2-4.9); Lymphocytes Percent Auto 12.7 % (20-40); Mean Corpuscular HGB Conc 31.7 g/dl (31.0-36.0); Mean Corpuscular Hemoglobin 27.8 pg (27.0-33.0); Mean Platelet Volume 11.8 fL (9.4-12.4); Monocytes Absolute Auto 0.7 X10*3/uL (0.1-1.2); Monocytes Percent Auto 7.8 % (2-11); NRBC Pct Auto 0.6 /100WBC (0.0-0.2); Neutrophils Absolute Auto 6.7 x10*3/uL (2.0-8.3); Neutrophils Percent Auto 78.4 % (45-73); Platelet Count 162 X10*3/uL (160-400); Red Blood Count 3.16 X10*6/uL (4.60-5.80); Red Cell Distribution Width 15.7 % (11.0-16.0); White Blood Count 8.6 X10*3/uL (4.8-10.8)
[2024-09-04 07:38] LABS: Alanine Aminotransferase 44 U/L (0-40); Albumin Level 3.6 g/dL (3.5-5.0); Alkaline Phosphatase 99 U/L (39-117); Anion Gap 10 (12-20); Aspartate Amino Transferase 52 U/L (5-37); Bilirubin Total 0.5 mg/dL (0.0-1.0); Blood Urea Nitrogen 20 mg/dL (9-16); Calcium 8.3 mg/dL (8.4-10.2); Carbon Dioxide 23 mmol/L (22-29); Chloride 114 mmol/L (96-108); Creatinine Clr Calc Pharmacy 55.7; Estimated Glomerular Filt Rate > 60; Glucose Random 111 mg/dL (60-115); Potassium 3.8 mmol/L (3.3-5.1); Sodium 143 mmol/L (135-145); Total Protein 6.3 g/dL (6.5-8.0)
[2024-09-04] MEDS: Metoprolol Succinate ER 100 MG TAB.ER.24H PO (09:46)
[2024-09-04] MEDS: gemfibroziL 600 MG TABLET PO ×2 (09:47→20:42)
[2024-09-04] MEDS: amLODIPine Besylate 5 MG TABLET PO ×2 (09:47→20:41)
[2024-09-04] MEDS: Pravastatin Sodium 40 MG TABLET PO (09:47)
[2024-09-04] MEDS: Nicotine 14 MG PATCH.TD24 TRANSDERMA (09:47)
[2024-09-04] MEDS: 0.9 % Sodium Chloride Flush 3 ML SYRINGE IVFLUSH ×3 (09:54→20:44)
--- NOTE | 2024-09-04 10:19 | P.PNIM_ITS ---
Subjective Subjective Date of Service: 09/04/24 Interval History: f/u on gib, acute blood loos anemia and dyspnea seems to have diuressed well overnight, less sob Physical Exam 2 Vital Signs: Vital Signs: Last Vital Signs Temp 97.8 F 09/04/24 07:49 Pulse 68 09/04/24 07:49 Resp 19 09/04/24 07:49 BP 143/65 H 09/04/24 07:49 Pulse Ox 93 09/04/24 07:49 O2 Del Method Nasal Cannula 09/04/24 07:49 O2 Flow Rate 2 09/04/24 07:49 BMI result Body Mass Index 27.4 General: AO X 3, no acute distress Resp: CTA bilateral CVS: S1,S2, iregular iregular, mild jvd GI: +BS, NT, no distention Skin: No rash Neuro: motor grossly intact Psych: appropriate affect Objective Data Active Medications Acetaminophen (Acetaminophen 325 Mg Tablet) 650 mg PO Q6H PRN PRN Reason: Pain, Mild (Pain Scale 1-3), fever or headache Albuterol/Ipratropium (Albuterol/Iprat 2.5/0.5mg 3 Ml Ampul.Neb) 3 ml INHALE Q4H PRN PRN Reason: wheezing Last Admin: 09/03/24 20:19 Dose: 3 ml Documented By: LARY Amlodipine Besylate (Amlodipine Besylate 5 Mg Tablet) 5 mg PO BID [facility]; Protocol Last Admin: 09/04/24 09:47 Dose: 5 mg Documented By: BERNICE Calcium Carbonate (Calcium Carbonate 750 Mg Tab.Chew) 750 mg PO Q4H PRN PRN Reason: Heartburn Furosemide (Furosemide 40 Mg/4 Ml Vial) 40 mg IVPUSH DAILY [facility]; Protocol Gemfibrozil (Gemfibrozil 600 Mg Tablet) 600 mg PO BID [facility] Last Admin: 09/04/24 09:47 Dose: 600 mg Documented By: BERNICE Magnesium Hydroxide (Milk Of Magnesia 30 Ml Oral.Susp) 30 ml PO DAILY PRN PRN Reason: Constipation Melatonin (Melatonin 3 Mg Tablet) 6 mg PO BEDTIME PRN PRN Reason: Insomnia Metoprolol Succinate (Metoprolol Succinate Er 50 Mg Tab.Er.24h) 50 mg PO BEDTIME [facility]; Protocol Last Admin: 09/03/24 20:09 Dose: 50 mg Documented By: IGLESIA Metoprolol Succinate (Metoprolol Succinate Er 100 Mg Tab.Er.24h) 100 mg PO DAILY [facility]; Protocol Last Admin: 09/04/24 09:46 Dose: 100 mg Documented By: BERNICE Nicotine (Nicotine 14 Mg Patch.Td24) 14 mg TRANSDERMA DAILY [facility] Last Admin: 09/04/24 09:47 Dose: 14 mg Documented By: BERNICE Ondansetron HCl (Ondansetron Hcl 4 Mg/2 Ml Vial) 4 mg IVPUSH Q8H PRN PRN Reason: Nausea and Vomiting Pantoprazole Sodium (Pantoprazole Sodium 40 Mg/10 Ml Vial) 40 mg IVPUSH BID@0630,1630 [facility] Last Admin: 09/04/24 05:50 Dose: 40 mg Documented By: IGLESIA Pravastatin Sodium (Pravastatin Sodium 40 Mg Tablet) 40 mg PO DAILY [facility] Last Admin: 09/04/24 09:47 Dose: 40 mg Documented By: BERNICE Quetiapine Fumarate (Quetiapine Fumarate 300 Mg Tablet) 300 mg PO BEDTIME [facility] Last Admin: 09/03/24 20:08 Dose: 300 mg Documented By: IGLESIA Sodium Chloride (0.9 % Sodium Chloride Flush 3 Ml Syringe) 3 ml IVFLUSH QSHIFT [facility] Last Admin: 09/04/24 09:54 Dose: 3 ml Documented By: BRENICE Tramadol HCl (Tramadol Hcl 50 Mg Tablet) 100 mg PO Q6H [facility] Last Admin: 09/04/24 09:55 Dose: Not Given Documented By: BERNICE Non-Admin Reason: Patient Refused Labs 09/04/24 05:58 09/04/24 05:58 Labs: Laboratory Results - last 24 hr 09/02/24 09/04/24 11:33 05:58 MCV 88.0 MCH 27.8 MCHC 31.7 RDW 15.7 Plt Count 162 MPV 11.8 Immature Gran % (Auto) 0.6 H Neut % (Auto) 78.4 H Lymph % (Auto) 12.7 L [place] % (Auto) 7.8 Eos % (Auto) 0.4 Baso % (Auto) 0.1 Lymph # (Auto) 1.1 L [place] # (Auto) 0.7 Eos # (Auto) 0.0 Baso # (Auto) 0.0 Abs Immat Gran (auto) 0.05 H Absolute Neuts (auto) 6.7 Absolute Nucleated RBC 0.050 H Nucleated RBC % (auto) 0.6 H Anion Gap 10 L Estim Creat Clear Calc 55.7 Estimated GFR > 60 Random Glucose 111 Calcium 8.3 L Total Bilirubin 0.5 AST 52 H ALT 44 H Alkaline Phosphatase 99 Total Protein 6.3 L Albumin 3.6 Blood Type A Negative Antibody Screen NEGATIVE Crossmatch See Detail Assessment and Plan (1) GI bleeding: Status: Acute Plan 74 yo male with prostate cancer currently being monitored, emphysema, HTN, HLD, GERD, anemia, prior warfarin use but hx of UGIB, new afib, CVA with dysarthria on plavix presents with 7 days of worsening shortness of breath and sore throat. Workup in ER including CT of soft tissue neck failed to demonstrate any acute abnormalities. Patient noted to have an O2 requirement at this time. Also noted to be anemic requiring blood transfusion. Acute blood loss anemia/guaiac positive stools, last hgb in october was 14 -transfuse patient to maintain hemoglobin greater than or equal to 10, so far 3 units -IV PPI, hold Plavix and aspirin -GI following, EGD was cancelled d/t sob -follow daily CBC, transfuse 1 more unit today Peripheral vascular disease -hold Plavix and aspirin until GI workup complete -restart upon GI recommendations= Acute kidney injury, likely cardiorenal syndrome, -creatine is now within normal following IV Lasix SOB, suspect heart failure exacerbation -IV Lasix -cardiology consult, may need repeat echo Hisotory of afib--Not anticoagulation due to major bleeding. He is being considered for R atrial appendage occlusion and watchman's device COPD, no acute exacerbation -continue inhalers, avoid steroid for now Mild metabolic acidosis--d/t renal failure, monitor DNR DNI Pneumatics Need for inpat: GIB work, needs transfusion and egd Quality Stroke Does the patient have a stroke diagnosis?: No VTE Prior VTE?: No VTE Risk Level:: Medical - moderate - high VTE Device Contraindication: N/A - Device Ordered VTE Drug Contraindication: Treatment Not Indicated
[2024-09-04] MEDS: Furosemide 40 MG/4 ML VIAL IVPUSH (10:46)
--- NOTE | 2024-09-04 11:22 | P.CONCA_ITS ---
History of Present Illness History of Present Illness Date of Service: 09/04/24 Requesting physician: Salvatore Zhang Chief complaint: GIB, CHF Narrative: 74-year-old gentleman with history of peptic ulcer disease in the past, peripheral vascular disease, active tobacco abuse and COPD, previous CVA in 2004 and atrial flutter presenting for acute GI bleed. It was suspected that he had upper GI blood loss and is being considered for endoscopy. He has been short of breath since admission and received some diuretics. Hemoglobin admission was 7.8. He is about to get a unit of blood. Patient admissions speaking only in the daughter helped with interpretation and gave most of the history. It appears he saw Dr. Henry at [facility] in 11/2023 and had discussion about Watchman and flutter ablation but the patient did not agree with Watchman placement. He has been on aspirin and Plavix for long time. [facility] Past Medical History Medical History (Updated 09/04/24 @ 11:28 by Kan Vasquez MD) Emphysema of lung HTN (hypertension) HLD (hyperlipidemia) Prostate cancer CVA (cerebral vascular accident) Surgical History Surgical History (Updated 09/03/24 @ 15:07 by Cintia Flores RN) Hx of prostate biopsy Hx of colonoscopy Hx of esophagogastroduodenoscopy Social History Social History Household Members: Family Housing: House Are you a primary lead caregiver to a significant other at home: No Do you presently have visiting nurse or other home services: No Patient Tobacco Use Status: Current everyday Tobacco user Tobacco use type: Cigarette Cigarettes Per Day: 6 service: No Meds Allergies Allergy/AdvReac Type Severity Reaction Status Date / Time lisinopril [LISINOPRIL] Allergy Unknown ANGIOEDEMA Verified 09/03/24 14:54 Active Medications: Current Medications Acetaminophen (Acetaminophen 325 Mg Tablet) 650 mg PO Q6H PRN PRN Reason: Pain, Mild (Pain Scale 1-3), fever or headache Albuterol/Ipratropium (Albuterol/Iprat 2.5/0.5mg 3 Ml Ampul.Neb) 3 ml INHALE Q4H PRN PRN Reason: wheezing Last Admin: 09/03/24 20:19 Dose: 3 ml Amlodipine Besylate (Amlodipine Besylate 5 Mg Tablet) 5 mg PO BID [facility]; Protocol Last Admin: 09/04/24 09:47 Dose: 5 mg Calcium Carbonate (Calcium Carbonate 750 Mg Tab.Chew) 750 mg PO Q4H PRN PRN Reason: Heartburn Furosemide (Furosemide 40 Mg/4 Ml Vial) 40 mg IVPUSH DAILY [facility]; Protocol Last Admin: 09/04/24 10:46 Dose: Not Given Gemfibrozil (Gemfibrozil 600 Mg Tablet) 600 mg PO BID [facility] Last Admin: 09/04/24 09:47 Dose: 600 mg Magnesium Hydroxide (Milk Of Magnesia 30 Ml Oral.Susp) 30 ml PO DAILY PRN PRN Reason: Constipation Melatonin (Melatonin 3 Mg Tablet) 6 mg PO BEDTIME PRN PRN Reason: Insomnia Metoprolol Succinate (Metoprolol Succinate Er 50 Mg Tab.Er.24h) 50 mg PO BEDTIME [facility]; Protocol Last Admin: 09/03/24 20:09 Dose: 50 mg Metoprolol Succinate (Metoprolol Succinate Er 100 Mg Tab.Er.24h) 100 mg PO DAILY [facility]; Protocol Last Admin: 09/04/24 09:46 Dose: 100 mg Nicotine (Nicotine 14 Mg Patch.Td24) 14 mg TRANSDERMA DAILY [facility] Last Admin: 09/04/24 09:47 Dose: 14 mg Ondansetron HCl (Ondansetron Hcl 4 Mg/2 Ml Vial) 4 mg IVPUSH Q8H PRN PRN Reason: Nausea and Vomiting Pantoprazole Sodium (Pantoprazole Sodium 40 Mg/10 Ml Vial) 40 mg IVPUSH BID@0630,1630 [facility] Last Admin: 09/04/24 05:50 Dose: 40 mg Pravastatin Sodium (Pravastatin Sodium 40 Mg Tablet) 40 mg PO DAILY [facility] Last Admin: 09/04/24 09:47 Dose: 40 mg Quetiapine Fumarate (Quetiapine Fumarate 300 Mg Tablet) 300 mg PO BEDTIME [facility] Last Admin: 09/03/24 20:08 Dose: 300 mg Sodium Chloride (0.9 % Sodium Chloride Flush 3 Ml Syringe) 3 ml IVFLUSH QSHIFT [facility] Last Admin: 09/04/24 09:54 Dose: 3 ml Tramadol HCl (Tramadol Hcl 50 Mg Tablet) 100 mg PO Q6H [facility] Last Admin: 09/04/24 09:55 Dose: Not Given Home Medications ?Medication ?Instructions ?Recorded ?Confirmed ?Last Taken ?Type amlodipine 5 mg tablet 5 mg PO BID 09/02/24 09/02/24 09/02/24 09:00 History clopidogrel 75 mg tablet 75 mg PO DAILY 09/02/24 09/02/24 09/02/24 09:00 History eszopiclone 2 mg tablet 2 mg PO BEDTIME Insomnia 09/02/24 09/02/24 Unknown History gemfibrozil 600 mg tablet 600 mg PO BID 09/02/24 09/02/24 09/02/24 09:00 History ipratropium 20 mcg-albuterol 100 1 puff inhalation Q4-6H PRN 09/02/24 09/02/24 Unknown History mcg/actuation mist for inhalation Shortness Of Breath Or Wheezing (Combivent Respimat) lovastatin 40 mg tablet 40 mg PO DAILY 09/02/24 09/02/24 09/02/24 09:00 History metoprolol succinate 50 mg 50 mg PO BEDTIME 09/02/24 09/02/24 Unknown History tablet,extended release 24 hr metoprolol succinate 50 mg 100 mg PO DAILY 09/02/24 09/02/24 09/02/24 09:00 History tablet,extended release 24 hr omeprazole 20 mg capsule,delayed 20 mg PO BID 09/02/24 09/02/24 09/02/24 09:00 History release quetiapine 100 mg tablet 300 mg PO BEDTIME 09/02/24 09/02/24 Unknown History tramadol 50 mg tablet 100 mg PO Q6H 09/02/24 09/02/24 09/02/24 09:00 History Physical Exam 2 Vital Signs: Vital Signs: Last Vital Signs Temp 98.6 F 09/04/24 11:00 Pulse 68 09/04/24 11:00 Resp 18 09/04/24 11:00 BP 136/62 09/04/24 11:00 Pulse Ox 95 09/04/24 10:27 O2 Del Method Room Air 09/04/24 10:27 O2 Flow Rate 2 09/04/24 07:49 BMI result Body Mass Index 27.4 GENERAL APPEARANCE: Short of breath, using accessory muscles. NECK: no carotid bruit, ++ jugular venous distention. SKIN: no suspicious lesions, warm and dry. HEART: no murmurs, regular rate and rhythm. LUNGS: Crackles right more than left base. ABDOMEN: soft, nontender. EXTREMITIES: Trace edema. PERIPHERAL PULSES: equal. NEUROLOGIC: No gross deficits, AAO X 3 Objective Labs and Meds 09/04/24 05:58 09/04/24 05:58 Lab results: Laboratory Results - last 24 hr 09/02/24 09/03/24 09/04/24 11:33 16:23 05:58 WBC 8.6 RBC 3.16 L D Hgb 9.1 L D 8.8 L Hct 27.8 L D MCV 88.0 MCH 27.8 MCHC 31.7 RDW 15.7 Plt Count 162 MPV 11.8 Immature Gran % (Auto) 0.6 H Neut % (Auto) 78.4 H Lymph % (Auto) 12.7 L [place] % (Auto) 7.8 Eos % (Auto) 0.4 Baso % (Auto) 0.1 Lymph # (Auto) 1.1 L [place] # (Auto) 0.7 Eos # (Auto) 0.0 Baso # (Auto) 0.0 Abs Immat Gran (auto) 0.05 H Absolute Neuts (auto) 6.7 Absolute Nucleated RBC 0.050 H Nucleated RBC % (auto) 0.6 H Sodium 143 Potassium 3.8 Chloride 114 H Carbon Dioxide 23 Anion Gap 10 L BUN 20 H Creatinine 1.12 Estim Creat Clear Calc 55.7 Estimated GFR > 60 Random Glucose 111 Calcium 8.3 L Total Bilirubin 0.5 AST 52 H ALT 44 H Alkaline Phosphatase 99 Total Protein 6.3 L Albumin 3.6 Blood Type A Negative Antibody Screen NEGATIVE Crossmatch See Detail Assessment and Plan (1) GI bleeding: Status: Acute (2) Acute heart failure: Status: Acute (3) PVD (peripheral vascular disease): Status: Acute Plan Pleasant 74 year gentleman who is presenting with acute blood loss anemia and congestive heart failure. Clinically volume overloaded. Lasix 40 mg IV b.i.d.. Hold aspirin and Plavix. Currently not ready for any procedures. We will reassess tomorrow morning. Previously had stroke and due to GI bleeding was taken off the anticoagulation. He had a discussion about Watchman with Dr. Henry but he did not agree with the procedure because he was told that he will need to stay on anticoagulation for 1-1/2 month and sometimes device related issues can happen where anticoagulation can not be stopped. I had a detailed discussion with the daughter and I have explained to her that this is a complex issue unfortunately. Being in atrial flutter obviously puts him at a risk of stroke and is high-risk for stroke due to high CHADS-VASc score and previous stroke. Aspirin and Plavix obviously does not help in this scenario. We will wait for endoscopy and we can make some decisions after that. If there is something treatable found then we can discuss with GI whether anticoagulation is an option. In that case Xarelto will be a better choice because there is some data about peripheral vascular disease with low-dose Xarelto and maybe there is some benefit for PVD as well as stroke prevention. Thank you for allowing me to participate in the care of your patient. Please feel free to contact me if you have any questions. Procedures Date of Service Date of Service: 09/04/24
--- NOTE | 2024-09-04 15:42 | P.PNGI_ITS ---
Subjective Subjective Date of Service: 09/04/24 Interval History: breathing easier today no bleeding reported overnight tolerating diet sister present, helping with translation Critical Care Time (minutes): 0 Physical Exam 2 Vital Signs: Vital Signs: Last Vital Signs Temp 98.5 F 09/04/24 15:22 Pulse 64 09/04/24 15:22 Resp 18 09/04/24 15:22 BP 148/70 H 09/04/24 15:22 Pulse Ox 97 09/04/24 15:22 O2 Del Method Room Air 09/04/24 15:22 O2 Flow Rate 2 09/04/24 11:45 BMI result Body Mass Index 27.4 GI: Other: abdomen is soft and nontender Objective Data Labs 09/04/24 05:58 09/04/24 05:58 Procedures Date of Service Date of Service: 09/04/24 Progress Note: A&P Assessment and plan (1) GI bleeding: Status: Acute Assessment and Plan: appears improved needs egd before resuming antiplatelets or AC, to be done when medically cleared. continue ppi Time Spent With Patient Time: Total time managing care of this patient today ____ minutes. Quality Stroke Does the patient have a stroke diagnosis?: No VTE Prior VTE?: No VTE Risk Level:: Medical - moderate - high VTE Device Contraindication: N/A - Device Ordered VTE Drug Contraindication: Treatment Not Indicated
[2024-09-04] MEDS: Metoprolol Succinate ER 50 MG TAB.ER.24H PO (20:41)
[2024-09-04] MEDS: QUEtiapine Fumarate 300 MG TABLET PO (20:41)
[2024-09-05 03:36] VITALS: BP 126/71; PULSE 69; RESP 18; TEMP 36.8; O2SAT 92
[2024-09-05] MEDS: Pantoprazole Sodium 40 MG/10 ML VIAL IVPUSH (06:03)
[2024-09-05 06:35] LABS: MANUAL DIFF FLAG NO
[2024-09-05 06:49] LABS: Basophils Percent Auto 0.4 % (0-2); Eosinophils Absolute Auto 0.2 X10*3/uL (0.0-0.4); Eosinophils Percent Auto 2.3 % (0-4); Hemoglobin 11.4 g/dl (14.0-18.0); Imm Gran Abs Auto 0.03 X10*3/uL (0.00-0.03); Imm Gran Pct Auto 0.4 % (0.0-0.4); Lymphocytes Absolute Auto 1.5 X10*3/uL (1.2-4.9); Mean Corpuscular HGB Conc 32.6 g/dl (31.0-36.0); Mean Corpuscular Hemoglobin 28.4 pg (27.0-33.0); Mean Corpuscular Volume 87.3 fL (80.0-98.0); Mean Platelet Volume 11.1 fL (9.4-12.4); Monocytes Absolute Auto 0.8 X10*3/uL (0.1-1.2); Monocytes Percent Auto 12.3 % (2-11); NRBC Pct Auto 0.4 /100WBC (0.0-0.2); Neutrophils Absolute Auto 4.3 x10*3/uL (2.0-8.3); Neutrophils Percent Auto 62.6 % (45-73); Platelet Count 164 X10*3/uL (160-400); Red Blood Count 4.01 X10*6/uL (4.60-5.80); Red Cell Distribution Width 15.3 % (11.0-16.0); White Blood Count 6.8 X10*3/uL (4.8-10.8)
[2024-09-05 07:03] LABS: Alanine Aminotransferase 40 U/L (0-40); Albumin Level 3.5 g/dL (3.5-5.0); Alkaline Phosphatase 101 U/L (39-117); Anion Gap 13 (12-20); Aspartate Amino Transferase 52 U/L (5-37); Bilirubin Total 0.8 mg/dL (0.0-1.0); Blood Urea Nitrogen 21 mg/dL (9-16); Calcium 8.7 mg/dL (8.4-10.2); Carbon Dioxide 23 mmol/L (22-29); Chloride 111 mmol/L (96-108); Creatinine Clr Calc Pharmacy 57.2; Estimated Glomerular Filt Rate > 60; Glucose Random 114 mg/dL (60-115); Potassium 3.4 mmol/L (3.3-5.1); Sodium 144 mmol/L (135-145); Total Protein 6.2 g/dL (6.5-8.0)
[2024-09-05 07:46] VITALS: BP 131/82; PULSE 65; RESP 17; TEMP 37.5; O2SAT 96
[2024-09-05] MEDS: Furosemide 40 MG/4 ML VIAL IVPUSH ×2 (09:20→12:07)
[2024-09-05] MEDS: Nicotine 14 MG PATCH.TD24 TRANSDERMA (09:20)
[2024-09-05] MEDS: Metoprolol Succinate ER 100 MG TAB.ER.24H PO (09:21)
[2024-09-05] MEDS: gemfibroziL 600 MG TABLET PO ×2 (09:21→21:21)
[2024-09-05] MEDS: amLODIPine Besylate 5 MG TABLET PO ×2 (09:21→21:21)
[2024-09-05] MEDS: Pravastatin Sodium 40 MG TABLET PO (09:21)
[2024-09-05] MEDS: 0.9 % Sodium Chloride Flush 3 ML SYRINGE IVFLUSH ×2 (09:22→21:22)
--- NOTE | 2024-09-05 10:51 | PM.PNCARD ---
Subjective Subjective Date of Service: 09/05/24 Interval history: Seen examined at bedside. Daughter was present at bedside too. Feeling better. For endoscopy today. Physical Exam Vital Signs: Last Vital Signs Temp 99.5 F 09/05/24 07:46 Pulse 65 09/05/24 07:46 Resp 17 09/05/24 07:46 BP 131/82 09/05/24 07:46 Pulse Ox 96 09/05/24 07:46 O2 Del Method Room Air 09/05/24 07:46 O2 Flow Rate 2 09/04/24 11:45 BMI result Body Mass Index 27.4 GENERAL APPEARANCE: In no acute distress. NECK: no carotid bruit, mild jugular venous distention. SKIN: no suspicious lesions, warm and dry. HEART: no murmurs, regular rate and rhythm. LUNGS: Crackles right base. ABDOMEN: soft, nontender. EXTREMITIES: Trace edema. PERIPHERAL PULSES: equal. NEUROLOGIC: No gross deficits, AAO X 3 Objective Labs and Meds 09/05/24 05:34 09/05/24 05:35 Lab results: Laboratory Results - last 24 hr 09/02/24 09/05/24 09/05/24 11:33 05:34 05:35 WBC 6.8 RBC 4.01 L D Hgb 11.4 L D Hct 35.0 L D MCV 87.3 MCH 28.4 MCHC 32.6 RDW 15.3 Plt Count 164 MPV 11.1 Immature Gran % (Auto) 0.4 Neut % (Auto) 62.6 Lymph % (Auto) 22.0 [place] % (Auto) 12.3 H Eos % (Auto) 2.3 Baso % (Auto) 0.4 Lymph # (Auto) 1.5 [place] # (Auto) 0.8 Eos # (Auto) 0.2 Baso # (Auto) 0.0 Abs Immat Gran (auto) 0.03 Absolute Neuts (auto) 4.3 Absolute Nucleated RBC 0.030 H Nucleated RBC % (auto) 0.4 H Sodium 144 Potassium 3.4 Chloride 111 H Carbon Dioxide 23 Anion Gap 13 BUN 21 H Creatinine 1.09 Estim Creat Clear Calc 57.2 Estimated GFR > 60 Random Glucose 114 Calcium 8.7 Total Bilirubin 0.8 AST 52 H ALT 40 Alkaline Phosphatase 101 Total Protein 6.2 L Albumin 3.5 Crossmatch See Detail Progress Note: A&P Assessment and plan (1) Acute heart failure: Status: Acute (2) GI bleeding: Status: Acute Plan [age] year gentleman with acute GI bleed likely upper GI, anemia and heart failure. He has been transfused and being diuresed. We will give him a 2nd dose of Lasix today around noon time. Intermediate risk to go for endoscopy today. We will decide about antiplatelets/anticoagulants after endoscopy has been performed. If it definitive treatment is possible then I would favor giving him Xarelto rather than aspirin and Plavix. This will need some more discussion with the patient and daughter. Thank you for allowing me to participate in the care of your patient. Please feel free to contact me if you have any questions. Time Spent With Patient Time: Total time managing care of this patient today ____ minutes. Progress Note: Quality Stroke Does the patient have a stroke diagnosis?: No Procedures Date of Service Date of Service: 09/05/24
[2024-09-05 11:40] VITALS: BP 125/83; PULSE 71; RESP 18; TEMP 37.6; O2SAT 98
--- NOTE | 2024-09-05 11:42 | P.PNIM_ITS ---
Subjective Subjective Date of Service: 09/05/24 Interval History: f/u on gib, acute blood loos anemia and dyspnea Patient is feeling much better, no sob,off oxygen an Physical Exam 2 Vital Signs: Vital Signs: Last Vital Signs Temp 99.6 F 09/05/24 11:40 Pulse 71 09/05/24 11:40 Resp 18 09/05/24 11:40 BP 125/83 09/05/24 11:40 Pulse Ox 98 09/05/24 11:40 O2 Del Method Room Air 09/05/24 11:40 O2 Flow Rate 2 09/04/24 11:45 BMI result Body Mass Index 27.4 Const: Other: General: AO X 3, no acute distress Resp: CTA bilateral CVS: S1,S2, iregula iregular, +JVD but better GI: +BS, NT, no distention Skin: No rash Neuro: motor grossly intact Psych: appropriate affect Objective Data Active Medications Acetaminophen (Acetaminophen 325 Mg Tablet) 650 mg PO Q6H PRN PRN Reason: Pain, Mild (Pain Scale 1-3), fever or headache Albuterol/Ipratropium (Albuterol/Iprat 2.5/0.5mg 3 Ml Ampul.Neb) 3 ml INHALE Q4H PRN PRN Reason: wheezing Last Admin: 09/03/24 20:19 Dose: 3 ml Documented By: LARY Amlodipine Besylate (Amlodipine Besylate 5 Mg Tablet) 5 mg PO BID [facility]; Protocol Last Admin: 09/05/24 09:21 Dose: 5 mg Documented By: JOHNATHON Calcium Carbonate (Calcium Carbonate 750 Mg Tab.Chew) 750 mg PO Q4H PRN PRN Reason: Heartburn Furosemide (Furosemide 40 Mg/4 Ml Vial) 40 mg IVPUSH DAILY [facility]; Protocol Last Admin: 09/05/24 09:20 Dose: 40 mg Documented By: JOHNATHON Furosemide (Furosemide 40 Mg/4 Ml Vial) 40 mg IVPUSH ONCE ONE; Protocol Stop: 09/05/24 12:01 Gemfibrozil (Gemfibrozil 600 Mg Tablet) 600 mg PO BID [facility] Last Admin: 09/05/24 09:21 Dose: 600 mg Documented By: JOHNATHON Magnesium Hydroxide (Milk Of Magnesia 30 Ml Oral.Susp) 30 ml PO DAILY PRN PRN Reason: Constipation Melatonin (Melatonin 3 Mg Tablet) 6 mg PO BEDTIME PRN PRN Reason: Insomnia Metoprolol Succinate (Metoprolol Succinate Er 50 Mg Tab.Er.24h) 50 mg PO BEDTIME [facility]; Protocol Last Admin: 09/04/24 20:41 Dose: 50 mg Documented By: IGLESIA Metoprolol Succinate (Metoprolol Succinate Er 100 Mg Tab.Er.24h) 100 mg PO DAILY [facility]; Protocol Last Admin: 09/05/24 09:21 Dose: 100 mg Documented By: JOHNATHON Nicotine (Nicotine 14 Mg Patch.Td24) 14 mg TRANSDERMA DAILY [facility] Last Admin: 09/05/24 09:20 Dose: 14 mg Documented By: JOHNATHON Ondansetron HCl (Ondansetron Hcl 4 Mg/2 Ml Vial) 4 mg IVPUSH Q8H PRN PRN Reason: Nausea and Vomiting Pantoprazole Sodium (Pantoprazole Sodium 40 Mg/10 Ml Vial) 40 mg IVPUSH BID@0630,1630 [facility] Last Admin: 09/05/24 06:03 Dose: 40 mg Documented By: IGLESIA Pravastatin Sodium (Pravastatin Sodium 40 Mg Tablet) 40 mg PO DAILY [facility] Last Admin: 09/05/24 09:21 Dose: 40 mg Documented By: JOHNATHON Quetiapine Fumarate (Quetiapine Fumarate 300 Mg Tablet) 300 mg PO BEDTIME [facility] Last Admin: 09/04/24 20:41 Dose: 300 mg Documented By: IGLESIA Sodium Chloride (0.9 % Sodium Chloride Flush 3 Ml Syringe) 3 ml IVFLUSH QSHIFT [facility] Last Admin: 09/05/24 09:22 Dose: 3 ml Documented By: JOHNATHON Tramadol HCl (Tramadol Hcl 50 Mg Tablet) 100 mg PO Q6H [facility] Last Admin: 09/05/24 09:21 Dose: Not Given Documented By: JOHNATHON Non-Admin Reason: Patient Refused Labs 09/05/24 05:34 09/05/24 05:35 Labs: Laboratory Results - last 24 hr 09/02/24 09/05/24 09/05/24 11:33 05:34 05:35 MCV 87.3 MCH 28.4 MCHC 32.6 RDW 15.3 Plt Count 164 MPV 11.1 Immature Gran % (Auto) 0.4 Neut % (Auto) 62.6 Lymph % (Auto) 22.0 [place] % (Auto) 12.3 H Eos % (Auto) 2.3 Baso % (Auto) 0.4 Lymph # (Auto) 1.5 [place] # (Auto) 0.8 Eos # (Auto) 0.2 Baso # (Auto) 0.0 Abs Immat Gran (auto) 0.03 Absolute Neuts (auto) 4.3 Absolute Nucleated RBC 0.030 H Nucleated RBC % (auto) 0.4 H Anion Gap 13 Estim Creat Clear Calc 57.2 Estimated GFR > 60 Random Glucose 114 Calcium 8.7 Total Bilirubin 0.8 AST 52 H ALT 40 Alkaline Phosphatase 101 Total Protein 6.2 L Albumin 3.5 Crossmatch See Detail Assessment and Plan (1) GI bleeding: Status: Acute Plan 74 yo male with prostate cancer currently being monitored, emphysema, HTN, HLD, GERD, anemia, prior warfarin use but hx of UGIB, new afib, CVA with dysarthria on plavix presents with 7 days of worsening shortness of breath and sore throat. Workup in ER including CT of soft tissue neck failed to demonstrate any acute abnormalities. Patient noted to have an O2 requirement at this time. Also noted to be anemic requiring blood transfusion. Acute blood loss anemia/guaiac positive stools, last hgb in october was 14 -transfuse patient to maintain hemoglobin greater than or equal to 10, so far 3 units -IV PPI, hold Plavix and aspirin -GI following, EGD planned today -follow cbc, Peripheral vascular disease -hold Plavix and aspirin until GI workup complete -restart upon GI recommendations Acute kidney injury, likely cardiorenal syndrome, resolved -creatine is now within normal following IV Lasix SOB, suspect heart failure exacerbation with low EF -IV Lasix, change to PO tomorrow -cardiology following, Hisotory of afib--Not anticoagulation due to major bleeding. He is being considered for R atrial appendage occlusion and watchman's device COPD, no acute exacerbation -continue inhalers, avoid steroid for now Mild metabolic acidosis--d/t renal failure, monitor DNR DNI Pneumatics Need for inpat: GIB work, needs transfusion and egd Quality Stroke Does the patient have a stroke diagnosis?: No VTE Prior VTE?: No VTE Risk Level:: Medical - moderate - high VTE Device Contraindication: N/A - Device Ordered VTE Drug Contraindication: Treatment Not Indicated
--- NOTE | 2024-09-05 13:30 | MHC.CM.PN ---
per rounds pt to have an egd today may dc later today plan is for home
--- NOTE | 2024-09-05 13:32 | MHC.CM.PN ---
Addendum entered by Shea Dwyer 09/07/24 13:39: NOTE ON WRONG PT Original Note: per rounds pt ready for dc no bed avalaiable
[2024-09-05 15:25] VITALS: BP 143/74; PULSE 71; RESP 18; TEMP 36.6; O2SAT 96
--- NOTE | 2024-09-05 15:44 | P.CDIM_ITS ---
PROVIDER RESPONSE TEXT: To clarify, the appropriate diagnosis supported by the clinical indicators: Diastolic: acute QUERY TEXT: PHYSICIAN'S DOCUMENTATION REQUEST Date of Query: 09/04/2024 01:14 PM EST Patient Name: Shreyas Robles Admit Date: 09/02/2024 Dear Salvatore Zhang MD, A review of the medical record indicates additional documentation may be needed. Please review below and update the documentation accordingly. Clinical Indicators: short of breath, crackles lungs Per Cardiology, Acute CHF, clinically volume overloaded. Lasix likely Cardiorenal syndrome positive JVD and a BNP > 500 Please provide further specificity regarding the most likely type and acuity of CHF you are evaluatin g, treating, or monitoring. Systolic Please specify if Acute, Chronic, or Acute on chronic, or Unable to determine Diastolic Please specify if Acute, Chronic, or Acute on chronic, or Unable to determine Combined Systolic/Diastolic Please specify if Acute, Chronic, or Acute on chronic, or Unable to determine Other (explain) Clinically unable to determine (explain) Thank you, Flor Segovia RN Use of terms such as suspected, likely, concern for, or probable (associated with a specific diagnosi s that is being evaluated, monitored, or treated as if it exists) are acceptable and can be coded in the inpatient se tting, when documented at the time of discharge. Please use your independent medical judgment in providing your response. THIS QUERY IS PART OF THE PERMANENT MEDICAL RECORD
--- NOTE | 2024-09-05 15:44 | P.CDIM_ITS ---
PROVIDER RESPONSE TEXT: To clarify, the appropriate diagnosis supported by the clinical indicators: Acute QUERY TEXT: PHYSICIAN'S DOCUMENTATION REQUEST Date of Query: 09/04/2024 01:10 PM EST Patient Name: Shreyas Robles Admit Date: 09/02/2024 Dear Salvatore Zhang MD, A review of the medical record indicates additional documentation may be needed. Please review below and update the documentation accordingly. Clinical Indicators: Per Hospitalist progress note 09/04/24: Mild metabolic acidosis due to renal failure, monitor Clarify which of the following accurately represents the acuity of the metabolic acidosis. Possible options might include: Acute Acute on chronic Compensated Chronic stable condition Remission Other (explain) Clinically unable to determine (explain) Thank you, Flor Segovia RN Use of terms such as suspected, likely, concern for, or probable (associated with a specific diagnosi s that is being evaluated, monitored, or treated as if it exists) are acceptable and can be coded in the inpatient se tting, when documented at the time of discharge. Please use your independent medical judgment in providing your response. THIS QUERY IS PART OF THE PERMANENT MEDICAL RECORD
[2024-09-05 19:19] VITALS: BP 117/70; PULSE 96; RESP 18; TEMP 37; O2SAT 100
--- NOTE | 2024-09-05 20:14 | PM.EVENT ---
Event Note Date of Service: 09/05/24 Event Note: GI I spoke with Dr Zhang today, and he states Mr Robles is medically stable for endoscopy. This will be arranged for 09/06. Time Spent With Patient Time: Total time managing care of this patient today ____ minutes.
[2024-09-05] MEDS: Metoprolol Succinate ER 50 MG TAB.ER.24H PO (21:21)
[2024-09-05] MEDS: QUEtiapine Fumarate 300 MG TABLET PO (21:21)
[2024-09-05 23:10] VITALS: BP 102/60; PULSE 71; RESP 18; TEMP 36.1; O2SAT 97
[2024-09-05] MEDS: Melatonin 3 MG TABLET 6 MG PO (23:19)
[2024-09-06] VITALS (14 sets, daily range): BP systolic 96–155; BP diastolic 56–85; PULSE 67–78; RESP 14–24; TEMP 36–37.6; O2SAT 92–99
[2024-09-06] MEDS: Metoprolol Succinate ER 100 MG TAB.ER.24H PO (07:47)
[2024-09-06] MEDS: Furosemide 40 MG/4 ML VIAL IVPUSH (07:47)
[2024-09-06] MEDS: Nicotine 14 MG PATCH.TD24 TRANSDERMA (07:48)
[2024-09-06] MEDS: amLODIPine Besylate 5 MG TABLET PO ×2 (07:48→21:00)
[2024-09-06] MEDS: Pravastatin Sodium 40 MG TABLET PO (07:48)
[2024-09-06] MEDS: 0.9 % Sodium Chloride Flush 3 ML SYRINGE IVFLUSH ×2 (07:50→21:00)
[2024-09-06] MEDS: gemfibroziL 600 MG TABLET PO ×2 (07:55→21:00)
[2024-09-06 08:24] LABS: Anion Gap 16 (12-20); Blood Urea Nitrogen 27 mg/dL (9-16); Calcium 9.2 mg/dL (8.4-10.2); Carbon Dioxide 25 mmol/L (22-29); Chloride 107 mmol/L (96-108); Creatinine Clr Calc Pharmacy 39.7; Estimated Glomerular Filt Rate 43; Glucose Random 135 mg/dL (60-115); Potassium 3.7 mmol/L (3.3-5.1); Sodium 144 mmol/L (135-145)
--- NOTE | 2024-09-06 09:49 | HO.PM.IMPN ---
Subjective Subjective Date of Service: 09/06/24 Interval History: f/u on gib, acute blood loos anemia and dyspnea feeling better, off O2, no sings of bleeding, npo for EGD Physical Exam Vital Signs: Vital Signs: Last Vital Signs Temp 97.0 F 09/06/24 07:32 Pulse 69 09/06/24 07:32 Resp 18 09/06/24 07:32 BP 136/80 09/06/24 07:32 Pulse Ox 99 09/06/24 07:32 O2 Del Method Room Air 09/06/24 07:32 O2 Flow Rate 2 09/04/24 11:45 BMI result Body Mass Index 27.4 General: AO X 3, no acute distress Resp: CTA bilateral CVS: S1,S2,RRR GI: +BS, NT, no distention Skin: No rash Neuro: motor grossly intact Psych: appropriate affect Objective Data Active Medications Acetaminophen (Acetaminophen 325 Mg Tablet) 650 mg PO Q6H PRN PRN Reason: Pain, Mild (Pain Scale 1-3), fever or headache Albuterol/Ipratropium (Albuterol/Iprat 2.5/0.5mg 3 Ml Ampul.Neb) 3 ml INHALE Q4H PRN PRN Reason: wheezing Last Admin: 09/03/24 20:19 Dose: 3 ml Documented By: LARY Amlodipine Besylate (Amlodipine Besylate 5 Mg Tablet) 5 mg PO BID [facility]; Protocol Last Admin: 09/06/24 07:48 Dose: 5 mg Documented By: KALIN Calcium Carbonate (Calcium Carbonate 750 Mg Tab.Chew) 750 mg PO Q4H PRN PRN Reason: Heartburn Gemfibrozil (Gemfibrozil 600 Mg Tablet) 600 mg PO BID [facility] Last Admin: 09/06/24 07:55 Dose: 600 mg Documented By: KALIN Magnesium Hydroxide (Milk Of Magnesia 30 Ml Oral.Susp) 30 ml PO DAILY PRN PRN Reason: Constipation Melatonin (Melatonin 3 Mg Tablet) 6 mg PO BEDTIME PRN PRN Reason: Insomnia Last Admin: 09/05/24 23:19 Dose: 6 mg Documented By: BRYON Metoprolol Succinate (Metoprolol Succinate Er 50 Mg Tab.Er.24h) 50 mg PO BEDTIME [facility]; Protocol Last Admin: 09/05/24 21:21 Dose: 50 mg Documented By: BRYON Metoprolol Succinate (Metoprolol Succinate Er 100 Mg Tab.Er.24h) 100 mg PO DAILY [facility]; Protocol Last Admin: 09/06/24 07:47 Dose: 100 mg Documented By: KALIN Nicotine (Nicotine 14 Mg Patch.Td24) 14 mg TRANSDERMA DAILY [facility] Last Admin: 09/06/24 07:48 Dose: 14 mg Documented By: KALIN Ondansetron HCl (Ondansetron Hcl 4 Mg/2 Ml Vial) 4 mg IVPUSH Q8H PRN PRN Reason: Nausea and Vomiting Pravastatin Sodium (Pravastatin Sodium 40 Mg Tablet) 40 mg PO DAILY [facility] Last Admin: 09/06/24 07:48 Dose: 40 mg Documented By: KALIN Quetiapine Fumarate (Quetiapine Fumarate 300 Mg Tablet) 300 mg PO BEDTIME [facility] Last Admin: 09/05/24 21:21 Dose: 300 mg Documented By: BRYON Sodium Chloride (0.9 % Sodium Chloride Flush 3 Ml Syringe) 3 ml IVFLUSH QSHIFT [facility] Last Admin: 09/06/24 07:50 Dose: 3 ml Documented By: KALIN Tramadol HCl (Tramadol Hcl 50 Mg Tablet) 100 mg PO Q6H [facility] Last Admin: 09/06/24 08:02 Dose: Not Given Documented By: KALIN Non-Admin Reason: Patient Refused Labs 09/05/24 05:34 09/06/24 06:02 Labs: Laboratory Results - last 24 hr 09/06/24 06:02 Hold Purple Top SEE NOTE Anion Gap 16 Estim Creat Clear Calc 39.7 Estimated GFR 43 Random Glucose 135 H Calcium 9.2 Assessment and Plan (1) GI bleeding: Status: Acute Plan 74 yo male with prostate cancer currently being monitored, emphysema, HTN, HLD, GERD, anemia, prior warfarin use but hx of UGIB, new afib, CVA with dysarthria on plavix presents with 7 days of worsening shortness of breath and sore throat. Workup in ER including CT of soft tissue neck failed to demonstrate any acute abnormalities. Patient noted to have an O2 requirement at this time. Also noted to be anemic requiring blood transfusion. Acute blood loss anemia/guaiac positive stools, last hgb in october was 14 -transfuse patient to maintain hemoglobin greater than or equal to 10, so far 3 units -IV PPI, hold Plavix and aspirin -GI following, EGD planned today--At intermediate risk (See cardiology note for details) -follow cbc, Peripheral vascular disease -hold Plavix and aspirin until GI workup complete -restart upon GI recommendations Acute kidney injury, likely cardiorenal syndrome, resolved -creatine is now within normal following IV Lasix SOB, suspect heart failure exacerbation with low EF -IV Lasix, change to PO -cardiology following, Hisotory of afib--Not anticoagulation due to major bleeding. He is being considered for R atrial appendage occlusion and watchman's device COPD, no acute exacerbation -continue inhalers, avoid steroid for now Mild metabolic acidosis--d/t renal failure, monitor DNR DNI Pneumatics Need for inpat: GIB work, needs transfusion and egd Quality Stroke Does the patient have a stroke diagnosis?: No VTE Prior VTE?: No VTE Risk Level:: Medical - moderate - high VTE Device Contraindication: N/A - Device Ordered VTE Drug Contraindication: Treatment Not Indicated
[2024-09-06 09:56] LABS: MANUAL DIFF FLAG NO
[2024-09-06 10:04] LABS: Basophils Percent Auto 0.5 % (0-2); Eosinophils Absolute Auto 0.3 X10*3/uL (0.0-0.4); Eosinophils Percent Auto 3.4 % (0-4); Hematocrit 40.3 % (42.0-52.0); Hemoglobin 13.1 g/dl (14.0-18.0); Imm Gran Abs Auto 0.03 X10*3/uL (0.00-0.03); Imm Gran Pct Auto 0.4 % (0.0-0.4); Lymphocytes Absolute Auto 1.5 X10*3/uL (1.2-4.9); Lymphocytes Percent Auto 17.7 % (20-40); Mean Corpuscular HGB Conc 32.5 g/dl (31.0-36.0); Mean Corpuscular Hemoglobin 28.1 pg (27.0-33.0); Mean Corpuscular Volume 86.5 fL (80.0-98.0); Mean Platelet Volume 11.7 fL (9.4-12.4); Monocytes Absolute Auto 1.2 X10*3/uL (0.1-1.2); Monocytes Percent Auto 14.4 % (2-11); Neutrophils Absolute Auto 5.2 x10*3/uL (2.0-8.3); Neutrophils Percent Auto 63.6 % (45-73); Platelet Count 194 X10*3/uL (160-400); Red Blood Count 4.66 X10*6/uL (4.60-5.80); Red Cell Distribution Width 15.7 % (11.0-16.0); White Blood Count 8.2 X10*3/uL (4.8-10.8)
--- NOTE | 2024-09-06 10:13 | P.PNGI_ITS ---
Subjective Subjective Date of Service: 09/06/24 Interval History: no melena or vomiting Critical Care Time (minutes): 0 Physical Exam 2 Vital Signs: Vital Signs: Last Vital Signs Temp 97.0 F 09/06/24 07:32 Pulse 69 09/06/24 07:32 Resp 18 09/06/24 07:32 BP 136/80 09/06/24 07:32 Pulse Ox 99 09/06/24 07:32 O2 Del Method Room Air 09/06/24 07:32 O2 Flow Rate 2 09/04/24 11:45 BMI result Body Mass Index 27.4 GI: Other: abdomen is soft and nontender Objective Data Labs 09/06/24 06:02 09/06/24 06:02 Procedures Date of Service Date of Service: 09/06/24 Progress Note: A&P Assessment and plan (1) GI bleeding: Status: Acute Assessment and Plan: plan is for EGD today to evaluate for source of blood loss and safety of restarting AC/antiplatelet rx. Discussed with patient and son. Time Spent With Patient Time: Total time managing care of this patient today ____ minutes. Quality Stroke Does the patient have a stroke diagnosis?: No VTE Prior VTE?: No VTE Risk Level:: Medical - moderate - high VTE Device Contraindication: N/A - Device Ordered VTE Drug Contraindication: Treatment Not Indicated
--- NOTE | 2024-09-06 10:33 | P.PNCA_ITS ---
Subjective Subjective Date of Service: 09/06/24 Interval history: Seen and examined at bedside. Complaining of some shortness of breath and upper airway secretions. Physical Exam Vital Signs: Last Vital Signs Temp 97.0 F 09/06/24 07:32 Pulse 69 09/06/24 07:32 Resp 18 09/06/24 07:32 BP 136/80 09/06/24 07:32 Pulse Ox 99 09/06/24 07:32 O2 Del Method Room Air 09/06/24 07:32 O2 Flow Rate 2 09/04/24 11:45 BMI result Body Mass Index 27.4 GENERAL APPEARANCE: In no acute distress. NECK: no carotid bruit, no jugular venous distention. SKIN: no suspicious lesions, warm and dry. HEART: no murmurs, regular rate and rhythm. LUNGS: Clear to auscultation. ABDOMEN: soft, nontender. EXTREMITIES: Trace edema. PERIPHERAL PULSES: equal. NEUROLOGIC: No gross deficits, AAO X 3 Objective Labs and Meds 09/06/24 06:02 09/06/24 06:02 Lab results: Laboratory Results - last 24 hr 09/06/24 06:02 WBC 8.2 RBC 4.66 Hgb 13.1 L Hct 40.3 L MCV 86.5 MCH 28.1 MCHC 32.5 RDW 15.7 Plt Count 194 MPV 11.7 Immature Gran % (Auto) 0.4 Neut % (Auto) 63.6 Lymph % (Auto) 17.7 L [place] % (Auto) 14.4 H Eos % (Auto) 3.4 Baso % (Auto) 0.5 Lymph # (Auto) 1.5 [place] # (Auto) 1.2 Eos # (Auto) 0.3 Baso # (Auto) 0.0 Abs Immat Gran (auto) 0.03 Absolute Neuts (auto) 5.2 Absolute Nucleated RBC 0.000 Nucleated RBC % (auto) 0.0 Hold Purple Top SEE NOTE Sodium 144 Potassium 3.7 Chloride 107 Carbon Dioxide 25 Anion Gap 16 BUN 27 H Creatinine 1.57 H Estim Creat Clear Calc 39.7 Estimated GFR 43 Random Glucose 135 H Calcium 9.2 Progress Note: A&P Assessment and plan (1) Acute heart failure: Status: Acute (2) GI bleeding: Status: Acute Plan 74-year-old gentleman with acute GI bleed likely upper GI, anemia and heart failure. He has been transfused and diuresed. Creatinine rising with diuretics and currently diuretics are on hold. Clinically euvolemic. Some dyspnea is due to COPD and upper airway secretions. Intermediate risk for endoscopy. We will decide about antiplatelets/anticoagulants after endoscopy has been performed. If it definitive treatment is possible then I would favor giving him Xarelto rather than aspirin and Plavix. This will need some more discussion with the patient and daughter. Thank you for allowing me to participate in the care of your patient. Please feel free to contact me if you have any questions. Time Spent With Patient Time: Total time managing care of this patient today ____ minutes. Progress Note: Quality Stroke Does the patient have a stroke diagnosis?: No Procedures Date of Service Date of Service: 09/06/24
--- NOTE | 2024-09-06 13:34 | HO.ANESPROP2 ---
HPI - Anesthesia Eval Consult details Narrative: 74 yo male patient for EGD with gold probe PMFSH Active Problems Active Problems: All Active Problems (Updated 09/06/24 @ 13:35 by Cecelia Dent MD) Acute heart failure (Acute) GI bleeding (Acute) COPD (chronic obstructive pulmonary disease) (Acute)- inhalers prescribed but patient not using PVD (peripheral vascular disease) (Acute). On plavix ANDERSON (acute kidney injury) (Acute) BUN/Cr 27/1.57 Guaiac positive stools (Acute) ABLA (acute blood loss anemia) (Acute)- black stools. Anemia 09/02/24 with H/H 7.8/25.5 S/p 3 units PRBC since admission. H/H today 13.1/40.3 Smoker H/o CVA 2004 - residual bilateral LE weakness. Ambulates only a little with cane Past Medical History Medical History Emphysema of lung HTN (hypertension) HLD (hyperlipidemia) Prostate cancer CVA (cerebral vascular accident) Family History Family history of problems with anesthesia: No Surgical History Surgical History Hx of prostate biopsy Hx of colonoscopy Hx of esophagogastroduodenoscopy History of Problems with Anesthesia: No Social History Social History Household Members: Family Housing: House Are you a primary manager critical care unit to a significant other at home: No Do you presently have visiting nurse or other home services: No Patient Tobacco Use Status: Current everyday Tobacco user Tobacco use type: Cigarette Cigarettes Per Day: 6 service: No Meds Allergies Allergy/AdvReac Type Severity Reaction Status Date / Time lisinopril [LISINOPRIL] Allergy Unknown ANGIOEDEMA Verified 09/03/24 14:54 Active Medications: Current Medications Acetaminophen (Acetaminophen 325 Mg Tablet) 650 mg PO Q6H PRN PRN Reason: Pain, Mild (Pain Scale 1-3), fever or headache Albuterol/Ipratropium (Albuterol/Iprat 2.5/0.5mg 3 Ml Ampul.Neb) 3 ml INHALE Q4H PRN PRN Reason: wheezing Last Admin: 09/03/24 20:19 Dose: 3 ml Amlodipine Besylate (Amlodipine Besylate 5 Mg Tablet) 5 mg PO BID [facility]; Protocol Last Admin: 09/06/24 07:48 Dose: 5 mg Calcium Carbonate (Calcium Carbonate 750 Mg Tab.Chew) 750 mg PO Q4H PRN PRN Reason: Heartburn Gemfibrozil (Gemfibrozil 600 Mg Tablet) 600 mg PO BID [facility] Last Admin: 09/06/24 07:55 Dose: 600 mg Magnesium Hydroxide (Milk Of Magnesia 30 Ml Oral.Susp) 30 ml PO DAILY PRN PRN Reason: Constipation Melatonin (Melatonin 3 Mg Tablet) 6 mg PO BEDTIME PRN PRN Reason: Insomnia Last Admin: 09/05/24 23:19 Dose: 6 mg Metoprolol Succinate (Metoprolol Succinate Er 50 Mg Tab.Er.24h) 50 mg PO BEDTIME [facility]; Protocol Last Admin: 09/05/24 21:21 Dose: 50 mg Metoprolol Succinate (Metoprolol Succinate Er 100 Mg Tab.Er.24h) 100 mg PO DAILY [facility]; Protocol Last Admin: 09/06/24 07:47 Dose: 100 mg Nicotine (Nicotine 14 Mg Patch.Td24) 14 mg TRANSDERMA DAILY [facility] Last Admin: 09/06/24 07:48 Dose: 14 mg Ondansetron HCl (Ondansetron Hcl 4 Mg/2 Ml Vial) 4 mg IVPUSH Q8H PRN PRN Reason: Nausea and Vomiting Pravastatin Sodium (Pravastatin Sodium 40 Mg Tablet) 40 mg PO DAILY [facility] Last Admin: 09/06/24 07:48 Dose: 40 mg Quetiapine Fumarate (Quetiapine Fumarate 300 Mg Tablet) 300 mg PO BEDTIME [facility] Last Admin: 09/05/24 21:21 Dose: 300 mg Sodium Chloride (0.9 % Sodium Chloride Flush 3 Ml Syringe) 3 ml IVFLUSH QSHIFT [facility] Last Admin: 09/06/24 07:50 Dose: 3 ml Tramadol HCl (Tramadol Hcl 50 Mg Tablet) 100 mg PO Q6H [facility] Last Admin: 09/06/24 08:02 Dose: Not Given Home Medications ?Medication ?Instructions ?Recorded ?Confirmed ?Last Taken ?Type amlodipine 5 mg tablet 5 mg PO BID 09/02/24 09/02/24 09/02/24 09:00 History clopidogrel 75 mg tablet 75 mg PO DAILY 09/02/24 09/02/24 09/02/24 09:00 History eszopiclone 2 mg tablet 2 mg PO BEDTIME Insomnia 09/02/24 09/02/24 Unknown History gemfibrozil 600 mg tablet 600 mg PO BID 09/02/24 09/02/24 09/02/24 09:00 History ipratropium 20 mcg-albuterol 100 1 puff inhalation Q4-6H PRN 09/02/24 09/02/24 Unknown History mcg/actuation mist for inhalation Shortness Of Breath Or Wheezing (Combivent Respimat) lovastatin 40 mg tablet 40 mg PO DAILY 09/02/24 09/02/24 09/02/24 09:00 History metoprolol succinate 50 mg 50 mg PO BEDTIME 09/02/24 09/02/24 Unknown History tablet,extended release 24 hr metoprolol succinate 50 mg 100 mg PO DAILY 09/02/24 09/02/24 09/02/24 09:00 History tablet,extended release 24 hr omeprazole 20 mg capsule,delayed 20 mg PO BID 09/02/24 09/02/24 09/02/24 09:00 History release quetiapine 100 mg tablet 300 mg PO BEDTIME 09/02/24 09/02/24 Unknown History tramadol 50 mg tablet 100 mg PO Q6H 09/02/24 09/02/24 09/02/24 09:00 History Exam Height,Weight and Vital Signs: Height 5 ft 6 in Weight 77.111 kg Last Vital Signs Temp 97.6 F 09/06/24 13:17 Pulse 71 09/06/24 13:17 Resp 18 09/06/24 13:17 BP 147/85 H 09/06/24 13:17 Pulse Ox 97 09/06/24 13:17 O2 Del Method Room Air 09/06/24 13:17 O2 Flow Rate 2 09/04/24 11:45 Sats decrease to 91 with exertion Pertinent Lab Results Pertinent Lab Results: Laboratory Tests 09/02/24 09/02/24 09/02/24 10:40 11:33 12:06 WBC 6.4 RBC 2.83 L Hgb 7.8 L Hct 25.5 L MCV 90.1 MCH 27.6 MCHC 30.6 L RDW 15.9 Plt Count 179 MPV 10.6 Immature Gran % (Auto) 0.6 H Neut % (Auto) 73.8 H Lymph % (Auto) 14.2 L [place] % (Auto) 9.7 Eos % (Auto) 1.2 Baso % (Auto) 0.5 Lymph # (Auto) 0.9 L [place] # (Auto) 0.6 Eos # (Auto) 0.1 Baso # (Auto) 0.0 Abs Immat Gran (auto) 0.04 H Absolute Neuts (auto) 4.7 Absolute Nucleated RBC 0.040 H Nucleated RBC % (auto) 0.6 H Smear Tech's Comments Hold Purple Top Sodium 145 Potassium 4.6 Chloride 115 H Carbon Dioxide 19 L Anion Gap 16 BUN 13 Creatinine 1.56 H Estim Creat Clear Calc 40.0 Estimated GFR 44 Random Glucose 163 H Calcium 8.6 Total Bilirubin AST ALT Alkaline Phosphatase Troponin I High Sens 5.6 B-Natriuretic Peptide 507 H Total Protein Albumin Stool Occult Blood POSITIVE Influenza Type A (PCR) NEGATIVE Influenza Type B (PCR) NEGATIVE RSV RNA Qual (PCR) NEGATIVE SARS-CoV-2 RNA (RT-PCR) NEGATIVE S. pyogenes GrpA RENATA Negative Blood Type A Negative Antibody Screen NEGATIVE Crossmatch See Detail 09/03/24 09/03/24 09/04/24 05:48 16:23 05:58 WBC 9.6 8.6 RBC 2.58 L 3.16 L D Hgb 7.1 L 9.1 L D 8.8 L Hct 23.0 L 27.8 L D MCV 89.1 88.0 MCH 27.5 27.8 MCHC 30.9 L 31.7 RDW 16.0 15.7 Plt Count 161 162 MPV 11.9 11.8 Immature Gran % (Auto) 0.6 H 0.6 H Neut % (Auto) 92.7 H 78.4 H Lymph % (Auto) 3.7 L 12.7 L [place] % (Auto) 2.9 7.8 Eos % (Auto) 0.0 0.4 Baso % (Auto) 0.1 0.1 Lymph # (Auto) 0.4 L 1.1 L [place] # (Auto) 0.3 0.7 Eos # (Auto) 0.0 0.0 Baso # (Auto) 0.0 0.0 Abs Immat Gran (auto) 0.06 H 0.05 H Absolute Neuts (auto) 8.9 H 6.7 Absolute Nucleated RBC 0.040 H 0.050 H Nucleated RBC % (auto) 0.4 H 0.6 H Smear Tech's Comments VERIFIED Hold Purple Top Sodium 143 143 Potassium 4.5 3.8 Chloride 114 H 114 H Carbon Dioxide 19 L 23 Anion Gap 15 10 L BUN 18 H 20 H Creatinine 1.40 1.12 Estim Creat Clear Calc 44.5 55.7 Estimated GFR 49 > 60 Random Glucose 182 H 111 Calcium 8.6 8.3 L Total Bilirubin 0.5 0.5 AST 49 H 52 H ALT 45 H 44 H Alkaline Phosphatase 102 99 Troponin I High Sens B-Natriuretic Peptide Total Protein 6.3 L 6.3 L Albumin 3.6 3.6 Stool Occult Blood Influenza Type A (PCR) Influenza Type B (PCR) RSV RNA Qual (PCR) SARS-CoV-2 RNA (RT-PCR) S. pyogenes GrpA RENATA Blood Type Antibody Screen Crossmatch 09/05/24 09/05/24 09/06/24 05:34 05:35 06:02 WBC 6.8 8.2 RBC 4.01 L D 4.66 Hgb 11.4 L D 13.1 L Hct 35.0 L D 40.3 L MCV 87.3 86.5 MCH 28.4 28.1 MCHC 32.6 32.5 RDW 15.3 15.7 Plt Count 164 194 MPV 11.1 11.7 Immature Gran % (Auto) 0.4 0.4 Neut % (Auto) 62.6 63.6 Lymph % (Auto) 22.0 17.7 L [place] % (Auto) 12.3 H 14.4 H Eos % (Auto) 2.3 3.4 Baso % (Auto) 0.4 0.5 Lymph # (Auto) 1.5 1.5 [place] # (Auto) 0.8 1.2 Eos # (Auto) 0.2 0.3 Baso # (Auto) 0.0 0.0 Abs Immat Gran (auto) 0.03 0.03 Absolute Neuts (auto) 4.3 5.2 Absolute Nucleated RBC 0.030 H 0.000 Nucleated RBC % (auto) 0.4 H 0.0 Smear Tech's Comments Hold Purple Top SEE NOTE Sodium 144 144 Potassium 3.4 3.7 Chloride 111 H 107 Carbon Dioxide 23 25 Anion Gap 13 16 BUN 21 H 27 H Creatinine 1.09 1.57 H Estim Creat Clear Calc 57.2 39.7 Estimated GFR > 60 43 Random Glucose 114 135 H Calcium 8.7 9.2 Total Bilirubin 0.8 AST 52 H ALT 40 Alkaline Phosphatase 101 Troponin I High Sens B-Natriuretic Peptide Total Protein 6.2 L Albumin 3.5 Stool Occult Blood Influenza Type A (PCR) Influenza Type B (PCR) RSV RNA Qual (PCR) SARS-CoV-2 RNA (RT-PCR) S. pyogenes GrpA RENATA Blood Type Antibody Screen Crossmatch Airway Mallampati Class: II TM Dist: >3cm Neck ROM: Full Denture: Upper and Lower Loose/Missing/Broken Teeth: Yes Heart: Regular. Atrial flutter Lungs: Occasional wheezes Assessment and Plan Assessment Anesthesia Assessment: Anesthesia Plan Discussed and Chart Reviewed Final Anesthetic Review Family History of Problems with Anesthesia: No History of Problems with Anesthesia: No NPO: Yes ASA Class: III and Emergency Final Preanesthetic Review: No Changes in Pt Med Stat, Meds/Allgs Chart Reviewed, Consent Obtained/Reviewed and Anes Risks/Benef Reviewed Patient Risk: Intermediate Procedure Risk: Low Assessment/Block/Sedation in SS: Assess/Block/Sedation-SS Anesthetic Plan Anesthetic Plan: TIVA Disposition: Standard PACU
--- NOTE | 2024-09-06 14:37 | PM.OP ---
Brief Operative Note Date of Service: 09/06/24 Pre-op diagnosis: Melena Post-op diagnosis: other (Gastritis, Hiatal hernia) Procedure: EGD Surgeon: Sheldon Ram MD Anesthesia: MAC Was an [employer] Baseball [employer] used for this Procedure?: No Estimated blood loss (mL): 0 Pathology: none sent Condition: stable Disposition: PACU
--- NOTE | 2024-09-06 14:38 | PM.EVENT ---
Event Note Date of Service: 09/06/24 Event Note: GI-EGD-Full note dictated Findings: 1. Small hiatal hernia 2. Mild chronic gastritis 3. No sign of bleeding or old blood Rec: Would need to review his reported previous GI studies as today's findings would not account for his presentation with reported melena and significant anemia. He may benefit from an eventual small bowel video capsule study if not already done. Will advance diet, continue PPI, F/U Hgb. No absolute contraindication to resuming his anticoagulation at this time if it is felt that he definitively needs that. D/W his family. Time Spent With Patient Time: Total time managing care of this patient today ____ minutes.
--- NOTE | 2024-09-06 14:55 | OP_ITS ---
DATE OF SERVICE: 09/06/2024 SURGEON: Sheldon Ram MD INDICATIONS: The patient presents for evaluation of reported melena and anemia. Full consent has been obtained from him via a medical assistant prn for this, including risks of bleeding and perforation. PREOPERATIVE DIAGNOSIS: Reported melena and anemia. POSTOPERATIVE DIAGNOSIS: PROCEDURE PERFORMED: Esophagogastroduodenoscopy. ESTIMATED BLOOD LOSS: COMPLICATIONS: ANESTHESIA: Monitored anesthesia care. ASSISTANTS: SPECIMENS: POSTOPERATIVE DIAGNOSES: Reported melena and anemia, small hiatal hernia, chronic mild gastritis. DESCRIPTION OF PROCEDURE: The patient was placed in the left lateral decubitus position. The Olympus video gastroscope was passed in the posterior oropharynx and upper esophagus under direct vision. The scope was passed slowly to the distal esophagus. The gastroesophageal junction appeared at 38 cm. There was no sign of any esophagitis, Rich's esophagus, varices, nor any other abnormalities. The scope entered the stomach. There was a small hiatal hernia. The scope was advanced to the pylorus and the duodenum was cannulated to the descending portion. The duodenum including the bulb appeared normal without mass or ulceration. The scope was advanced as far as possible, but no abnormalities were noted. There was no blood or coffee-grounds in the duodenum or proximal jejunum. The scope was withdrawn back in the stomach. The gastric antrum and body had areas of pallor, but no erythema, erosions, nor ulceration. There was good peristalsis. The scope was retroflexed, visualizing the proximal stomach carefully, which appeared normal, without any sign of mass or ulceration. There was no visible vessel. The scope was straightened. There was no blood nor coffee-grounds in the stomach. The scope was withdrawn back to the esophagus. The esophageal mucosa appeared normal. The scope was withdrawn from the patient. He tolerated the procedure well and was returned to the recovery area in stable condition. IMPRESSION: 1. Mild chronic-appearing gastritis. 2. Minimal hiatal hernia. PLAN: At this point, these findings would certainly not explain his recent presentation with reported melena and anemia. Other possibilities include that of a more distal small bowel source of bleeding such as an AVM or Dieulafoy lesion,, a Dieulafoy lesion in the Upper GI tract, which is not visible at the present time, or a possible colonic source. At this point given his overall condition, I would recommend observing him, advancing his diet, and following his hemoglobin prior to having him undergo any further procedures until we are able to review his previous GI workup that appears to have been done elsewhere. According to his daughter he has had at least an upper endoscopy and colonoscopy a couple of years ago at [facility]. At this point, he appears otherwise stable. I did review that another possible option would be a small bowel video capsule study done as an outpatient, if not already done elsewhere. This has been discussed with his family, including his daughter, son, and [id number]..They are comfortable with this plan. MD MODESTO Duron/MARY / [id number] MTDD
[2024-09-06] MEDS: Omeprazole 20 MG CAPSULE.DR PO (16:22)
[2024-09-06] MEDS: Metoprolol Succinate ER 50 MG TAB.ER.24H PO (21:00)
[2024-09-06] MEDS: QUEtiapine Fumarate 300 MG TABLET PO (21:00)
[2024-09-06] MEDS: Zolpidem Tartrate 5 MG TABLET PO (21:00)
[2024-09-06] MEDS: traMADoL HCL 50 MG TABLET 100 MG PO (23:47)
[2024-09-06] MEDS: Melatonin 3 MG TABLET 6 MG PO (23:47)
[2024-09-07 04:00] VITALS: BP 106/69; PULSE 66; RESP 18; TEMP 36.3; O2SAT 95
[2024-09-07] MEDS: Omeprazole 20 MG CAPSULE.DR PO (05:58)
[2024-09-07 06:12] LABS: MANUAL DIFF FLAG NO
[2024-09-07 06:36] LABS: Anion Gap 14 (12-20); Blood Urea Nitrogen 31 mg/dL (9-16); Calcium 9.5 mg/dL (8.4-10.2); Carbon Dioxide 25 mmol/L (22-29); Chloride 107 mmol/L (96-108); Creatinine Clr Calc Pharmacy 40.7; Estimated Glomerular Filt Rate 45; Glucose Fasting 129 mg/dL (60-99); Potassium 3.7 mmol/L (3.3-5.1); Sodium 142 mmol/L (135-145)
[2024-09-07 07:08] LABS: Basophils Absolute Auto 0.1 X10*3/uL (0.0-0.2); Basophils Percent Auto 0.7 % (0-2); Eosinophils Absolute Auto 0.4 X10*3/uL (0.0-0.4); Eosinophils Percent Auto 5.1 % (0-4); Hematocrit 37.9 % (42.0-52.0); Hemoglobin 12.3 g/dl (14.0-18.0); Imm Gran Abs Auto 0.03 X10*3/uL (0.00-0.03); Imm Gran Pct Auto 0.4 % (0.0-0.4); Lymphocytes Absolute Auto 1.8 X10*3/uL (1.2-4.9); Lymphocytes Percent Auto 23.3 % (20-40); Mean Corpuscular HGB Conc 32.5 g/dl (31.0-36.0); Mean Corpuscular Volume 86.3 fL (80.0-98.0); Mean Platelet Volume 11.6 fL (9.4-12.4); Monocytes Absolute Auto 1.3 X10*3/uL (0.1-1.2); Monocytes Percent Auto 16.8 % (2-11); Neutrophils Absolute Auto 4.1 x10*3/uL (2.0-8.3); Neutrophils Percent Auto 53.7 % (45-73); Platelet Count 178 X10*3/uL (160-400); Red Blood Count 4.39 X10*6/uL (4.60-5.80); Red Cell Distribution Width 15.2 % (11.0-16.0); White Blood Count 7.7 X10*3/uL (4.8-10.8)
[2024-09-07 07:27] VITALS: BP 135/75; PULSE 67; RESP 18; TEMP 36.1; O2SAT 95
[2024-09-07] MEDS: amLODIPine Besylate 5 MG TABLET PO (07:40)
[2024-09-07] MEDS: Metoprolol Succinate ER 100 MG TAB.ER.24H PO (07:41)
[2024-09-07] MEDS: Nicotine 14 MG PATCH.TD24 TRANSDERMA (07:41)
[2024-09-07] MEDS: 0.9 % Sodium Chloride Flush 3 ML SYRINGE IVFLUSH (07:41)
[2024-09-07] MEDS: Pravastatin Sodium 40 MG TABLET PO (07:41)
[2024-09-07] MEDS: gemfibroziL 600 MG TABLET PO (07:41)
--- NOTE | 2024-09-07 07:54 | PM.DS ---
DS: Providers Provider Date of Service: 09/07/24 Date of admission: 09/02/24 14:55 Date of discharge: 09/07/24 Primary care physician: Milagro Dill MD Consults: 09/02/24 15:04 Consult to Gastroenterology Routine Consulting Provider: Dharmesh Mcmanus Reason for consultation: GIB Has provider been notified: No 09/03/24 16:42 Consult to Cardiology Routine Consulting Provider: [facility] Reason for consultation: Heart failure DS: Diagnosis Discharge Diagnosis (1) Acute heart failure: Status: Acute (2) GI bleeding: Status: Acute DS: Summary Hospital Course Hospital Course: admission hpi Chief Complaint: Heme positive stools 74 yo male with prostate cancer currently being monitored, emphysema, HTN, HLD, GERD, anemia, prior warfarin use but hx of UGIB, history of afib, 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 He has a dry mouth and feels like his throat is swollen. Also noted to have heme-positive stools in ER. When discussed with patient (via daughter interpreting) patient has been nauseous and vomited several times in the last several days. States his stools have been dark. He continues to smoke cigarettes daily. He also notes that he has a more productive cough over the last several days. He has a history of gastric ulcer which prompted the DC of Coumadin. Daughter states takes Plavix for severe peripheral vascular disease. CT scan in the ER soft tissue neck failed to demonstrate any acute abnormalities. Chest x-ray demonstrates peribronchial wall thickening thickening question infectious etiology Hopsital course 74 yo male with prostate cancer currently being monitored, emphysema, HTN, HLD, GERD, anemia, prior warfarin use but hx of UGIB, history of afib, CVA with dysarthria on plavix presents with 7 days of worsening shortness of breath and sore throat. Workup in ER including CT of soft tissue neck failed to demonstrate any acute abnormalities. He was noted to be hypoxic and anemia with hemoglobin of 7.8, occult blood positive; he was admitted for gib bleeding work and hypoxia evaluation. Acute blood loss anemia/guaiac positive stools, last hgb in october was 14. initial hemoglobin of 7.8, dropped to 7.1, he has been transfused a total of 5 untis of RBC, hemoglobin is now 12 and stable for 2 days with no further bleeding, he has been on PPI as well. He had EGD on 09/06 with the following findings and recommendations 1. Small hiatal hernia 2. Mild chronic gastritis 3. No sign of bleeding or old blood Rec: Would need to review his reported previous GI studies as today's findings would not account for his presentation with reported melena and significant anemia. He may benefit from an eventual small bowel video capsule study if not already done. Will advance diet, continue PPI, F/U Hgb. No absolute contraindication to resuming his anticoagulation at this time if it is felt that he definitively needs that. D/W his family Acute HFpEF exacerbation, causing acute hypoxic respiratory failure with hypoxia. He was diuressed under the guidance of cardiology resulting in resolution of hypoxia and overall feeling better. He will continue metoprolol and Lasix at 40 mg daily Peripheral vascular disease, Aspirin and Plavix were on hold due to gib bleeding and will be restarted. -restart upon GI recommendations Acute kidney injury, likely cardiorenal syndrome, resolved -creatine is now within normal following IV Lasix Hisotory of afib--Not anticoagulation due to major bleeding. He is being considered for R atrial appendage occlusion and watchman's device COPD, no acute exacerbation -continue inhalers, avoid steroid for now Mild metabolic acidosis--d/t renal failure, resolved. Time Attestation Discharge Coordination Time (in mins): 35 Quality: Safe Use of Opioids Does Pt have an Active Cancer Diagnosis on the Problem List?: No Quality: Stroke Does the patient have a stroke diagnosis?: No Physical Exam Vital Signs: Vital Signs: Last Vital Signs Temp 96.9 F 09/07/24 07:27 Pulse 67 09/07/24 07:27 Resp 18 09/07/24 07:27 BP 135/75 09/07/24 07:27 Pulse Ox 95 09/07/24 07:27 O2 Del Method Room Air 09/07/24 07:27 O2 Flow Rate 2 09/06/24 15:40 BMI result Body Mass Index 27.4 Const: Other: General: AO X 3, no acute distress Resp: CTA bilateral CVS: S1,S2,RRR GI: +BS, NT, no distention Skin: No rash Neuro: motor grossly intact Psych: appropriate affect DS: Data Data Completed and Pending Labs on day of discharge: Laboratory Results - last 24 hr 09/06/24 09/07/24 06:02 05:57 WBC 8.2 7.7 RBC 4.66 4.39 L Hgb 13.1 L 12.3 L Hct 40.3 L 37.9 L MCV 86.5 86.3 MCH 28.1 28.0 MCHC 32.5 32.5 RDW 15.7 15.2 Plt Count 194 178 MPV 11.7 11.6 Immature Gran % (Auto) 0.4 0.4 Neut % (Auto) 63.6 53.7 Lymph % (Auto) 17.7 L 23.3 [place] % (Auto) 14.4 H 16.8 H Eos % (Auto) 3.4 5.1 H Baso % (Auto) 0.5 0.7 Lymph # (Auto) 1.5 1.8 [place] # (Auto) 1.2 1.3 H Eos # (Auto) 0.3 0.4 Baso # (Auto) 0.0 0.1 Abs Immat Gran (auto) 0.03 0.03 Absolute Neuts (auto) 5.2 4.1 Absolute Nucleated RBC 0.000 0.000 Nucleated RBC % (auto) 0.0 0.0 Hold Purple Top SEE NOTE Sodium 144 142 Potassium 3.7 3.7 Chloride 107 107 Carbon Dioxide 25 25 Anion Gap 16 14 BUN 27 H 31 H Creatinine 1.57 H 1.53 H Estim Creat Clear Calc 39.7 40.7 Estimated GFR 43 45 Random Glucose 135 H Fasting Glucose 129 H Calcium 9.2 9.5 Discharge Plan Discharge Anticipated Discharge Date/Time: 09/07/24 07:52 Patient Disposition: Home, Self-Care Discharge Diagnosis: Acute blood loss anemia, gi bleeding, acute heart failure acute hypoxic respiratory failure Referrals: Milagro Dill MD [Primary Care Provider] - 1 Week Discharge Medications: New furosemide [Lasix] 20 mg tablet 20 mg PO DAILY Qty: 90 0RF Continued metoprolol succinate 50 mg tablet extended release 24 hr 100 mg PO DAILY metoprolol succinate 50 mg tablet extended release 24 hr 50 mg PO BEDTIME lovastatin 40 mg tablet 40 mg PO DAILY amlodipine 5 mg tablet 5 mg PO BID tramadol 50 mg tablet 100 mg PO Q6H quetiapine 100 mg tablet 300 mg PO BEDTIME gemfibrozil 600 mg tablet 600 mg PO BID omeprazole 20 mg capsule,delayed release(DR/EC) 20 mg PO BID eszopiclone 2 mg tablet 2 mg PO BEDTIME Combivent Respimat 20-100 mcg/actuation mist 1 puff INHALATION Q4-6H PRN (Reason: Shortness Of Breath Or Wheezing) Discontinued clopidogrel 75 mg tablet 75 mg PO DAILY Discharge Orders: Discharge Order (Routine); Ordered 09/07/24 Ordered By: Salvatore Zhang Diet: Advance to usual diet Activity on Discharge: As tolerated Stand Alone Forms: Patient Portal Discharge page Print Language: Bur[place]ian Care Plan Goals: recovery from gi bleeding, anemia and heart failure Health Concerns: gi bleeding anemia heart failure atrial fibriliatio Plan of Treatment: stop taking aspirin and Plavix and discuss furthe use of blood thiners with your doctor and heart doctor Assessment: see above Discharge Date/Time: 09/07/24 14:19
--- NOTE | 2024-09-07 09:18 | P.CONNP_ITS ---
History of Present Illness Reason for Consult Consult date: 09/07/24 Chief Complaint Chief complaint: GIB, CHF History of Present Illness Narrative: 74 y/o male (primary language is [place]), with medical history of prostate cancer, emphysema, HTN, HLD, GERD, anemia, histoyr of afib (used to be on coumadin but d/c'd after remote UGIB, now on plavix reportedly for PAD), hx CVA with dysarthria. Presented 09/02 with UGIB, hypoxia, transfused with 5 units RBCs. Also treated for HFpEF with diuresis. His daughter is at bedside today and also contributes to history. Nephrology consulted for ANDERSON. creatinine on arrival 09/02 was 1.56, trended down to 1.09 on 09/05 with diuresis 09/06 creatinine increased to 1.57, 09/07 is 1.53 Of note, pt had relative hypotension on 09/05 drop to 102/60 (pt SBP had been in 140s-170s), also had low blood pressure 09/06 97/64, 96/62 had been receiving IV lasix as well pt reports he does not have any known kidney disease nor does he see a kidney doctor. However, he notes that in the he had an issue with pain in one of his kidneys and was evaluated and states it shrunk and that he only has one working kidney. had renal doppler on file from 2018- right renal parenchyma normal; left renal parenchymal size is atrophic. He denies shortness of breath, chest pain, dizziness he denies flank pain, difficulty emptying bladder, abdominal pain he denies LE swelling, states had been worse but has improved with medications Denies other concerns/complaints. Reports plan for discharge home today. Review of Systems Constitutional: Denies fatigue, Denies headache(s) and Denies malaise Denies dizziness and Denies headache(s) Cardiovascular: Denies chest pain, Denies leg edema, Denies lightheadedness and Denies dyspnea Respiratory: Denies cough and Denies dyspnea Gastrointestinal: Denies abdominal pain, Denies constipation, Denies diarrhea, Denies nausea and Denies vomiting Genitourinary: Denies hematuria, Denies oliguria, Reports difficulty urinating, Denies dysuria, Denies flank pain, Denies urinary frequency and Denies urinary incontinence Musculoskeletal: Denies arthralgias and Denies muscle cramps Skin/Breast: Denies rash Denies dizziness and Denies headache(s) Endocrine: Denies fatigue PMFSH Past Medical History Medical History Emphysema of lung HTN (hypertension) HLD (hyperlipidemia) Prostate cancer CVA (cerebral vascular accident) Surgical History Surgical History Hx of prostate biopsy Hx of colonoscopy Hx of esophagogastroduodenoscopy Social History Social History Household Members: Family Housing: House Are you a primary care transition coordinator to a significant other at home: No Do you presently have visiting nurse or other home services: No Comment: family in room Patient Tobacco Use Status: Current everyday Tobacco user Tobacco use type: Cigarette Cigarettes Per Day: 6 service: No Meds Allergies Allergy/AdvReac Type Severity Reaction Status Date / Time lisinopril [LISINOPRIL] Allergy Unknown ANGIOEDEMA Verified 09/03/24 14:54 Active Medications: Current Medications Acetaminophen (Acetaminophen 325 Mg Tablet) 650 mg PO Q6H PRN PRN Reason: Pain, Mild (Pain Scale 1-3), fever or headache Albuterol/Ipratropium (Albuterol/Iprat 2.5/0.5mg 3 Ml Ampul.Neb) 3 ml INHALE Q4H PRN PRN Reason: wheezing Last Admin: 09/03/24 20:19 Dose: 3 ml Amlodipine Besylate (Amlodipine Besylate 5 Mg Tablet) 5 mg PO BID WILL; Protocol Last Admin: 09/07/24 07:40 Dose: 5 mg Calcium Carbonate (Calcium Carbonate 750 Mg Tab.Chew) 750 mg PO Q4H PRN PRN Reason: Heartburn Gemfibrozil (Gemfibrozil 600 Mg Tablet) 600 mg PO BID WILL Last Admin: 09/07/24 07:41 Dose: 600 mg Magnesium Hydroxide (Milk Of Magnesia 30 Ml Oral.Susp) 30 ml PO DAILY PRN PRN Reason: Constipation Melatonin (Melatonin 3 Mg Tablet) 6 mg PO BEDTIME PRN PRN Reason: Insomnia Last Admin: 09/06/24 23:47 Dose: 6 mg Metoprolol Succinate (Metoprolol Succinate Er 50 Mg Tab.Er.24h) 50 mg PO BEDTIME WILL; Protocol Last Admin: 09/06/24 21:00 Dose: 50 mg Metoprolol Succinate (Metoprolol Succinate Er 100 Mg Tab.Er.24h) 100 mg PO DAILY [facility]; Protocol Last Admin: 09/07/24 07:41 Dose: 100 mg Nicotine (Nicotine 14 Mg Patch.Td24) 14 mg TRANSDERMA DAILY [facility] Last Admin: 09/07/24 07:41 Dose: 14 mg Omeprazole (Omeprazole 20 Mg Capsule.Dr) 20 mg PO DAILY@0630 [facility] Last Admin: 09/07/24 05:58 Dose: 20 mg Ondansetron HCl (Ondansetron Hcl 4 Mg/2 Ml Vial) 4 mg IVPUSH Q8H PRN PRN Reason: Nausea and Vomiting Pravastatin Sodium (Pravastatin Sodium 40 Mg Tablet) 40 mg PO DAILY [facility] Last Admin: 09/07/24 07:41 Dose: 40 mg Quetiapine Fumarate (Quetiapine Fumarate 300 Mg Tablet) 300 mg PO BEDTIME [facility] Last Admin: 09/06/24 21:00 Dose: 300 mg Sodium Chloride (0.9 % Sodium Chloride Flush 3 Ml Syringe) 3 ml IVFLUSH QSHIFT [facility] Last Admin: 09/07/24 07:41 Dose: 3 ml Tramadol HCl (Tramadol Hcl 50 Mg Tablet) 100 mg PO Q6H PRN PRN Reason: Pain, Moderate(Pain Scale 4-6) Last Admin: 09/06/24 23:47 Dose: 100 mg Zolpidem Tartrate (Zolpidem Tartrate 5 Mg Tablet) 5 mg PO BEDTIME PRN PRN Reason: Insomnia Last Admin: 09/06/24 21:00 Dose: 5 mg Home Medications ?Medication ?Instructions ?Recorded ?Confirmed ?Last Taken ?Type amlodipine 5 mg tablet 5 mg PO BID 09/02/24 09/02/24 09/02/24 09:00 History clopidogrel 75 mg tablet 75 mg PO DAILY 09/02/24 09/02/24 09/02/24 09:00 History eszopiclone 2 mg tablet 2 mg PO BEDTIME Insomnia 09/02/24 09/02/24 Unknown History gemfibrozil 600 mg tablet 600 mg PO BID 09/02/24 09/02/24 09/02/24 09:00 History ipratropium 20 mcg-albuterol 100 1 puff inhalation Q4-6H PRN 09/02/24 09/02/24 Unknown History mcg/actuation mist for inhalation Shortness Of Breath Or Wheezing (Combivent Respimat) lovastatin 40 mg tablet 40 mg PO DAILY 09/02/24 09/02/24 09/02/24 09:00 History metoprolol succinate 50 mg 50 mg PO BEDTIME 09/02/24 09/02/24 Unknown History tablet,extended release 24 hr metoprolol succinate 50 mg 100 mg PO DAILY 09/02/24 09/02/24 09/02/24 09:00 History tablet,extended release 24 hr omeprazole 20 mg capsule,delayed 20 mg PO BID 09/02/24 09/02/24 09/02/24 09:00 History release quetiapine 100 mg tablet 300 mg PO BEDTIME 09/02/24 09/02/24 Unknown History tramadol 50 mg tablet 100 mg PO Q6H 09/02/24 09/02/24 09/02/24 09:00 History Physical Exam Vital Signs: Last Vital Signs Temp 96.9 F 09/07/24 07:27 Pulse 67 09/07/24 07:27 Resp 18 09/07/24 07:27 BP 135/75 09/07/24 07:27 Pulse Ox 95 09/07/24 07:27 O2 Del Method Room Air 09/07/24 07:27 O2 Flow Rate 2 09/06/24 15:40 BMI result Body Mass Index 27.4 Const General: no acute distress, alert and awake Resp Effort & Inspection: normal respiratory effort and able to speak in complete sentences Auscultation: clear to auscultation bilaterally Cardio Jugular venous distension: no JVD Rate: regular rate Rhythm: regular rhythm Heart sounds: S1 normal heart sound present and S2 normal heart sound present GI Palpation (GI): Soft to palpation and nontender General: Yes no CVA tenderness Back/Spine/Pelvis Back: no CVA tenderness Skin Lesions: no lesions Rashes: no rashes Extrem General: No edema Results Lab Results 09/07/24 05:57 09/07/24 05:57 Lab results: Chemistry 09/05/24 09/06/24 09/07/24 05:35 06:02 05:57 Sodium 144 144 142 Potassium 3.4 3.7 3.7 Carbon Dioxide 23 25 25 BUN 21 H 27 H 31 H Creatinine 1.09 1.57 H 1.53 H Calcium 8.7 9.2 9.5 Hematology 09/05/24 09/06/24 09/07/24 05:34 06:02 05:57 WBC 6.8 8.2 7.7 Hgb 11.4 L D 13.1 L 12.3 L Plt Count 164 194 178 Assessment and Plan (1) ANDERSON (acute kidney injury): Status: Acute (2) CKD (chronic kidney disease): Qualifiers: Chronic kidney disease stage: stage 3 (moderate) Chronic kidney disease stage 3 subtype: stage 3a (GFR 45-59) Qualified Code(s): N18.31 - Chronic kidney disease, stage 3a Status: Acute Plan Patient with underlying CKD, with likely new ANDERSON Given lack of previous records, unclear if creatinine is close to baseline or ANDERSON. However, suspect patient has chronic underlying renal disease given one atrophic kidney Patient did have some relative hypotension and may have component of hemodynamic ANDERSON, though this creatinine may be close to his baseline recommend avoid hypotension, avoid nephrotoxins Given likely underlying CKD of unknown etiology, will get serum and urine immunofixation, PTH, vitamin D will arrange follow up in nephrology outpatient office in 1 week post discharge, will request PCP lab records Discussed with Dr Elder Edouard Date of Service Date of Service: 09/07/24
--- NOTE | 2024-09-07 11:29 | PM.PNCARD ---
Subjective Subjective Date of Service: 09/07/24 Interval history: He is status post endoscopy at this stage. No obvious cause for bleeding noted on the EGD. Physical Exam Vital Signs: Last Vital Signs Temp 96.9 F 09/07/24 07:27 Pulse 67 09/07/24 07:27 Resp 18 09/07/24 07:27 BP 135/75 09/07/24 07:27 Pulse Ox 95 09/07/24 07:27 O2 Del Method Room Air 09/07/24 07:27 O2 Flow Rate 2 09/06/24 15:40 BMI result Body Mass Index 27.4 GENERAL APPEARANCE: In no acute distress. NECK: no carotid bruit, no jugular venous distention. SKIN: no suspicious lesions, warm and dry. HEART: no murmurs, regular rate and rhythm. LUNGS: Clear to auscultation. ABDOMEN: soft, nontender. EXTREMITIES: Trace edema. PERIPHERAL PULSES: equal. NEUROLOGIC: No gross deficits, AAO X 3 Objective Labs and Meds 09/07/24 05:57 09/07/24 05:57 Lab results: Laboratory Results - last 24 hr 09/07/24 05:57 WBC 7.7 RBC 4.39 L Hgb 12.3 L Hct 37.9 L MCV 86.3 MCH 28.0 MCHC 32.5 RDW 15.2 Plt Count 178 MPV 11.6 Immature Gran % (Auto) 0.4 Neut % (Auto) 53.7 Lymph % (Auto) 23.3 [place] % (Auto) 16.8 H Eos % (Auto) 5.1 H Baso % (Auto) 0.7 Lymph # (Auto) 1.8 [place] # (Auto) 1.3 H Eos # (Auto) 0.4 Baso # (Auto) 0.1 Abs Immat Gran (auto) 0.03 Absolute Neuts (auto) 4.1 Absolute Nucleated RBC 0.000 Nucleated RBC % (auto) 0.0 Sodium 142 Potassium 3.7 Chloride 107 Carbon Dioxide 25 Anion Gap 14 BUN 31 H Creatinine 1.53 H Estim Creat Clear Calc 40.7 Estimated GFR 45 Fasting Glucose 129 H Calcium 9.5 Progress Note: A&P Assessment and plan (1) Acute heart failure: Status: Acute (2) GI bleeding: Status: Acute (3) Atrial flutter: Status: Acute Plan Pleasant 74 year gentleman with previous history of stroke, GI bleed, peripheral vascular disease, tobacco abuse and COPD presenting for upper GI blood loss and anemia. He developed congestive heart failure due to anemia and was diuresed and appears to be euvolemic at this stage. He had mild ANDERSON and nephrology seeing him. I think he looks euvolemic and will need some diuretics as he returns home. Would favor giving him 20 mg Lasix daily. He has atrial flutter with variable block. This is rate controlled currently with metoprolol succinate which should be continued. He came for GI bleed unfortunately no obvious cause has been found. He lost approximately 6-7 g of hemoglobin which is significant blood loss. He was on aspirin and Plavix but also has atrial flutter with known strokes in the past. He previously had a discussion with Dr. Henry at [facility] about Watchman device and atrial flutter ablation but he was not ready for procedure at that time. I would a detailed discussion with the patient's daughter and relative Jordi who is a nurse practitioner. In the absence of obvious cause found for bleeding I think starting any antiplatelet or anticoagulation would be challenging. I think he should have repeat blood workup done with his primary care physician in 1 week, he already has an appointment. The family will discuss with the patient about returning to see Dr. Henry for a revisit about Watchman and atrial flutter ablation. Follow up with [facility] as above. Signing off. Thank you for allowing me to participate in the care of your patient. Please feel free to contact me if you have any questions. Time Spent With Patient Time: Total time managing care of this patient today ____ minutes. Progress Note: Quality Stroke Does the patient have a stroke diagnosis?: No Procedures Date of Service Date of Service: 09/07/24
[2024-09-07 11:39] LABS: Parathyroid Hormone Intact 126.6 pg/mL (8.7-77.1)
[2024-09-07 12:00] VITALS: BP 116/69; PULSE 60; RESP 14; TEMP 36.2; O2SAT 98
--- NOTE | 2024-09-07 12:35 | HO.POSTANES ---
Post Anesthesia Evaluation Post Anesthesia Evaluation Date of Service: 09/07/24 Vital Signs: Vital Signs Temp Pulse Resp BP Pulse Ox O2 Del Method 09/07/24 12:00 97.1 F 60 14 116/69 98 Room Air 09/07/24 07:27 96.9 F 67 18 135/75 95 Room Air 09/07/24 04:00 97.4 F 66 18 106/69 95 Room Air Anesthesia: Monitored Mental Status: Awake Pain Control: Satisfactory Nausea/Vomiting: None Hydration: Adequate Anesthesia-Related Issues: No Anes. Related Issues
--- NOTE | 2024-09-07 13:40 | MHC.CM.PN ---
PT WILL DC HOME TODAY WITH NO SERVICES VIA PRIVATE TRANSPORT
[2024-09-11 18:04] LABS: IgA 249 mg/dL (70-320); IgG 864 mg/dL (600-1540); IgM 133 mg/dL (50-300)
[2024-09-13 23:54] LABS: VITAMIN D (1,25 OH) D3 47 pg/mL; Vit D (1,25-Dihydroxy) Total 47 pg/mL (18-72); Vitamin D (1,25 OH) D2 <8 pg/mL
== END 2024-09-07 14:19 | disposition home or self-care (01) | DRG 377 ==
LOC: HO.ED 12:53 → HO.EDOVER 15:18 → HO.S3 19:42
PROVIDERS: Internal Medicine; Nurse Practitioner Family; Admitting Provider Hospitalist; Emergency Provider Emergency Medicine; PCP Internal Medicine; Visit Provider Internal Medicine
PROC: 0DJ08ZZ Inspection of Upper Intestinal Tract, Via Natural or Artificial Opening Endoscopic (ICD-10-PCS; principal; 2024-09-06 14:00)
DX: K29.51 Unspecified chronic gastritis with bleeding (principal); I50.31 Acute diastolic (congestive) heart failure; D62 Acute posthemorrhagic anemia; N17.9 Acute kidney failure, unspecified; E87.21 Acute metabolic acidosis; I48.92 Unspecified atrial flutter; I13.0 Hypertensive heart and chronic kidney disease with heart failure and stage 1 through stage 4 chronic kidney disease, or unspecified chronic kidney disease; K44.9 Diaphragmatic hernia without obstruction or gangrene; E11.51 Type 2 diabetes mellitus with diabetic peripheral angiopathy without gangrene; J43.9 Emphysema, unspecified; E11.22 Type 2 diabetes mellitus with diabetic chronic kidney disease; N18.31 Chronic kidney disease, stage 3a; F17.210 Nicotine dependence, cigarettes, uncomplicated; C61 Malignant neoplasm of prostate; Z66 Do not resuscitate; I95.9 Hypotension, unspecified; Z71.6 Tobacco abuse counseling; Z86.73 Personal history of transient ischemic attack (TIA), and cerebral infarction without residual deficits; Z20.822 Contact with and (suspected) exposure to COVID-19; Z79.02 Long term (current) use of antithrombotics/antiplatelets; Z79.899 Other long term (current) drug therapy
CPT/HCPCS: 0241U; 36415; 70490; 71045; 80048; 80053; 82272; 82652; 82784; 83880; 83970; 84484; 85018; 85025; 86334; 86335; 86850; 86900; 86901; 86923; 87651; 93005; 94640; 99285; J1940; J2003; J2250; J2470; J2704; J2919; J7120; P9016

== ENCOUNTER → 2024-09-02 10:14 | Outpatient (BNV) | payer OTHER, SELFPAY | PROVIDERS: Admitting Provider Hospitalist; Emergency Provider Emergency Medicine; PCP Internal Medicine; Visit Provider Internal Medicine Cardiovascular Disease | DX: R94.31 Abnormal electrocardiogram [ECG] [EKG] (principal) | CPT/HCPCS: 93010 ==

== ENCOUNTER → 2024-09-02 14:55 | Outpatient (BNV) | payer OTHER, SELFPAY | PROVIDERS: Admitting Provider Hospitalist; Emergency Provider Emergency Medicine; PCP Internal Medicine; Visit Provider Internal Medicine Cardiovascular Disease | DX: I50.9 Heart failure, unspecified (principal); K92.2 Gastrointestinal hemorrhage, unspecified; I48.92 Unspecified atrial flutter | CPT/HCPCS: 99223; 99233 ==

== ENCOUNTER → 2024-09-02 14:55 | Outpatient (BNV) | payer OTHER, SELFPAY | PROVIDERS: Admitting Provider Hospitalist; Emergency Provider Emergency Medicine; PCP Internal Medicine; Visit Provider Nurse Practitioner Family | DX: N17.9 Acute kidney failure, unspecified (principal); N18.31 Chronic kidney disease, stage 3a | CPT/HCPCS: 99222 ==

== ENCOUNTER → 2024-09-02 14:55 | Outpatient (BNV) | payer MEDICARE, SELFPAY | PROVIDERS: Admitting Provider Hospitalist; Emergency Provider Emergency Medicine; PCP Internal Medicine; Visit Provider Hospitalist | DX: I50.9 Heart failure, unspecified (principal); K92.2 Gastrointestinal hemorrhage, unspecified | CPT/HCPCS: 99223; 99232; 99239; 99499 ==

== ENCOUNTER 2024-10-18 14:29 | Outpatient (AMB) | payer OTHER, SELFPAY ==
[2024-10-18 14:40] VITALS: BP 110/60; PULSE 73; BMI 27.1
--- NOTE | 2024-10-18 14:40 | MHC.OFFVIS ---
Vital Signs 10/18/24 14:40 Height 5 ft 6 in Weight 167 lb 15.876 oz BMI 27.1 BP 110/60 Blood Pressure Location Lt brachial Position Sitting Pulse 73 Pulse Source Pulse Oximeter Intake Visit Reasons: [facility] F/up /E. George/AFib Hot Stamp Operator Required: No Hot Stamp Operator Services: Hot Stamp Operator Offered & Declined Hot Stamp Operator Name: maxwell/ Accompanied by: Daughter Allergies lisinopril [LISINOPRIL] Allergy (Unknown, Verified 10/18/24 15:39) ANGIOEDEMA Medication List - Last Reconciled 10/18/24 by Daniel Christiansen NP amlodipine 5 mg PO BID cyclobenzaprine 5 mg PO BEDTIME PRN eszopiclone 2 mg PO BEDTIME furosemide (Lasix) 20 mg PO DAILY gemfibrozil 600 mg PO BID ipratropium-albuterol 20-100 mcg/actuation (Combivent Respimat) 1 puff inhalation Q4-6H PRN lovastatin 40 mg PO DAILY metoprolol succinate ER 50 mg PO BEDTIME metoprolol succinate ER 50 mg PO DAILY omeprazole 20 mg PO BID quetiapine 300 mg PO BEDTIME tramadol 100 mg PO Q6H HPI Comments Details: This is a 74-year-old male patient presenting today for hospital discharge follow-up and to address his atrial flutter. His medical history includes stroke in 2004, PVD, COPD, PUD. The patient was recently hospitalized for a GI bleed, for which he underwent an EGD, but no obvious source of bleeding was identified. During his hospitalization, he developed congestive heart failure and was diuresed accordingly. He also developed mild ANDERSON, with a creatinine level of 1.63. He also has a history of atrial flutter with variable block. He has been on aspirin and Plavix due to his prior history stroke. The patient had previously consulted with Dr. Henry at [facility] regarding a Watchman device and atrial flutter ablation, but he declined both procedures. Today, the patient is accompanied by his daughter, who serving as an tavern car attendant throughout the visit. He did not undergo a colonoscopy during his hospitalization due to anemia. In the absence of an obvious source for GI bleed, he has not been restarted on any anticoagulation or antiplatelet therapy. Patient had repeat labs at his PCP in the daughter states his H&H and creatinine have improved. The daughter states that the patient has continued to refuse both the Watchman device and atrial flutter ablation. He denies any exertional chest pain, shortness of breath, orthopnea, PND, dizziness, presyncope, or syncope. [facility] Medical History (Updated 10/18/24 @ 20:54 by Daniel Christiansen NP) COPD (chronic obstructive pulmonary disease) PVD (peripheral vascular disease) Emphysema of lung HTN (hypertension) HLD (hyperlipidemia) Prostate cancer CVA (cerebral vascular accident) Surgical History Hx of prostate biopsy Hx of colonoscopy Hx of esophagogastroduodenoscopy Social History Household Members: Family Housing: House Are you a primary customer care specialist to a significant other at home: No Do you presently have visiting nurse or other home services: No Comment: family in room Patient Tobacco Use Status: Current everyday Tobacco user Tobacco use type: Cigarette Cigarettes Per Day: 6 service: No Physical Exam Vital Signs: Last Vital Signs Pulse 73 10/18/24 14:40 BP 110/60 10/18/24 14:40 BMI result Body Mass Index 27.1 Const General: cooperative, healthy appearing, comfortable and no acute distress Orientation/consciousness: patient oriented x3 HEENT Head: Yes normal to inspection Neck Neck: Yes normal visual inspection, Yes trachea midline and Yes supple Chest Chest palpation & inspection: normal inspection of the chest Resp Effort & Inspection: normal respiratory effort Auscultation: clear to auscultation bilaterally, no crackles, no rales, no rhonchi and no wheezes Cardio Jugular venous distension: no JVD Palpation: normal PMI Rate: regular rate Rhythm: abnormal rhythm irregularly irregular Heart sounds: S1 normal heart sound present, S2 normal heart sound present, no click, no gallops, no murmurs and no rubs Peripheral pulses: Peripheral pulses 2+ throughout GI Inspection: Yes normal to inspection Palpation (GI): Soft to palpation Auscultation: normal bowel sounds Skin General skin exam: no rashes or lesions noted Neuro General: patient oriented x3 Extrem General: Yes normal to inspection, No calf tenderness and Yes edema (trace b/l lower leg) Psych Appearance: grossly normal Mental Status: mental status grossly normal Speech and movement: Normal speech and movement present Assessment & Plan Assessment & Plan (1) Atrial flutter: Code(s): I48.92 - Unspecified atrial flutter Category: Medical (2) History of CVA (cerebrovascular accident): Code(s): Z86.73 - Personal history of transient ischemic attack (TIA), and cerebral infarction without residual deficits Category: Medical (3) Hospital discharge follow-up: Code(s): Z09 - Encounter for follow-up examination after completed treatment for conditions other than malignant neoplasm (4) HTN (hypertension): Code(s): I10 - Essential (primary) hypertension Category: Medical Plan Patient's H&H levels and creatinine improved since hospital discharge per daughter, this was also reviewed by me on her phone through his patient portal. Given the unclear etiology of the GI bleed, patient will continue to avoid aspirin and Plavix at this time. For the trace edema in his bilateral legs, he will remain on the current low dose of diuretics. The patient continues to be on metoprolol for rate control office a flutter, with his heart rate stable and blood pressure well controlled today. After a very detailed lengthy discussion with the patient, his daughter, and his son-in-law who is a nurse practitioner, the patient is finally agreeable to proceeding with the Watchman procedure. The indications, procedure, risks and benefits were explained thoroughly. The patient remains hesitant about undergoing an atrial flutter ablation at this time. Patient can continue to follow with Dr. Henry's office once arrangements are made for him to get the Watchman device. We have contacted Dr. Henry's office to inform them that the patient is now agreeable to proceeding and to scheduling appointment for watchman device. In the meantime, patient will call us with any questions or concerns. This note was generated using voice recognition software. While every effort has been made to ensure accuracy and proper rotary drill operator helper, there may be occasional errors that could affect the content or meaning of the described symptoms. Coding Level of Care Code Est Pt Level 4 (02443) Diagnoses Atrial flutter I48.92 History of CVA (cerebrovascular accident) Z86.73 Hospital discharge follow-up Z09 HTN (hypertension) I10 Time Spent (min) 33 Comment Time spent in reviewing the chart, test results, assessment, counseling and documentation.
== END 2024-10-18 15:41 | disposition home or self-care (01) ==
PROVIDERS: PCP Internal Medicine
DX: I48.92 Unspecified atrial flutter (principal); Z86.73 Personal history of transient ischemic attack (TIA), and cerebral infarction without residual deficits; I10 Essential (primary) hypertension
CPT/HCPCS: 99214

== ENCOUNTER → 2024-10-18 14:29 | Outpatient (BNVA) | payer OTHER, SELFPAY | PROVIDERS: PCP Internal Medicine | DX: Z09 Encounter for follow-up examination after completed treatment for conditions other than malignant neoplasm (principal); I48.92 Unspecified atrial flutter; I10 Essential (primary) hypertension; Z86.73 Personal history of transient ischemic attack (TIA), and cerebral infarction without residual deficits | CPT/HCPCS: 99212 ==

== ENCOUNTER 2025-03-06 09:19 | Outpatient (REF) | payer OTHER, SELFPAY ==
--- OUTSIDE RECORDS SUMMARY | 2025-03-06 09:42 | XMS_ITS ---
Author Organization [facility] Address [address] [place] [id number] Care Team Providers Care Electronic Game Developer Name Role Phone Fuentes Reese, Milagro Primary Care Provider Kenzie Sheldon Barclay Unavailable [phone] REASON FOR VISIT UGI bleed Encounters Encounter Location Date Provider Diagnosis [facility] Inpatient [address], [place] [id number] 09/06/2024 Sheldon Ram Plan Of Treatment No Information Progress Notes * ROLANDA RAMÍREZJEVONOB:[birth year] (74 yo M)Acc No.[id number]:09/06/2024 EGD/MAC Patient:?MARIO RAMÍREZ Provider:?Sheldon Ram MD :1950???Age:74 Y???Sex:Male Alejandro e:09/06/2024 Address:[address] [place], [place] [id number] Pcp:Milagro Dill M.D. Subjective: * Chief Complaints: * ???1. UGI bleed. * Medical History:? Objective: * Vitals:? Assessment: Plan: * Treatment: * * The named appointment provid er may or may not be the originator of this progress note, and it is not deemed complete until electronically signed by the appointment provider. Sign off status: Pending * Provider:?Sheldon Ram MD Date:? 024 Generated for Eugenei ng/Faxing/eTransmitting on:?03/06/2025 09:42 AM EDT
[2025-03-06 09:59] LABS: Hematocrit 32.1 % (42.0-52.0); Hemoglobin 10.8 g/dl (14.0-18.0); Mean Corpuscular HGB Conc 33.6 g/dl (31.0-36.0); Mean Corpuscular Volume 92.2 fL (80.0-98.0); Mean Platelet Volume 11.2 fL (9.4-12.4); Platelet Count 213 X10*3/uL (160-400); Red Blood Count 3.48 X10*6/uL (4.60-5.80); White Blood Count 9.9 X10*3/uL (4.8-10.8)
[2025-03-06 10:38] LABS: Anion Gap 16 (12-20); Blood Urea Nitrogen 25 mg/dL (9-16); Carbon Dioxide 26 mmol/L (22-29); Chloride 105 mmol/L (96-108); Estimated Glomerular Filt Rate 56; Glucose Random 168 mg/dL (60-115); Potassium 4.8 mmol/L (3.3-5.1); Sodium 142 mmol/L (135-145)
== END 2025-03-06 09:20 | disposition home or self-care (01) ==
LOC: HO.LAB 09:19
DX: I48.92 Unspecified atrial flutter (principal)
CPT/HCPCS: 36415; 80048; 85027

== ENCOUNTER 2025-03-08 12:55 | Outpatient (AMB) | payer OTHER, SELFPAY ==
--- OUTSIDE RECORDS SUMMARY | 2025-03-08 12:58 | XMS_ITS ---
Author Organization [facility] Address [address] [place] [phone] Care Team Providers Care Instructor Of Education Name Role Phone Fuentes Reese, Milagro Primary Care Provider Kenzie Sheldon Barclay Unavailable [phone] REASON FOR VISIT UGI bleed Encounters Encounter Location Date Provider Diagnosis [facility] Inpatient [address], [place] [id number] 09/06/2024 Sheldon Ram Plan Of Treatment No Information Progress Notes * ROLANDA RAMÍREZJEVONOB:[birth year] (74 yo M)Acc No.[id number]:09/06/2024 EGD/MAC Patient:?MARIO RAMÍREZ Provider:?Sheldon Ram MD :1950???Age:74 Y???Sex:Male Alejandro e:09/06/2024 Address:[address] [place], [place] [id number] Pcp:Milagro Dill M.D. Subjective: * Chief Complaints: [...] Provider:?Sheldon Ram MD Date:? 024 Generated for Printi ng/Faxing/eTransmitting on:?03/08/2025 12:57 PM EDT
--- NOTE | 2025-03-08 12:59 | A.OFFVIS_ITS ---
Vital Signs 03/08/25 13:04 Height 5 ft 6 in Weight 161 lb 13.109 oz BMI 26.1 BP 130/64 Blood Pressure Location Lt brachial Position Sitting Pulse 65 Pulse Source Monitor Intake Visit Reasons: 1 month follow up Intake Note: 1 mth f/up Food Sampler Required: No Food Sampler Name: daughter/ Accompanied by: Daughter Allergies lisinopril [LISINOPRIL] Allergy (Unknown, Verified 10/18/24 15:39) ANGIOEDEMA Medication List - Last Reconciled 03/08/25 by Daniel Christiansen NP amlodipine 5 mg PO BID aspirin (Adult Low Dose Aspirin) 81 mg PO DAILY clopidogrel 75 mg PO DAILY cyclobenzaprine 5 mg PO BEDTIME PRN eszopiclone 2 mg PO BEDTIME furosemide (Lasix) 20 mg PO DAILY gemfibrozil 600 mg PO BID ipratropium-albuterol 20-100 mcg/actuation (Combivent Respimat) 1 puff inhalation Q4-6H PRN lovastatin 40 mg PO DAILY metoprolol succinate ER 50 mg PO BEDTIME metoprolol succinate ER 50 mg PO DAILY omeprazole 20 mg PO BID quetiapine 300 mg PO BEDTIME tramadol 100 mg PO Q6H HPI Comments Details: This is a 74-year-old male patient coming in for a follow-up visit, accompanied by his daughter and son-in-law who is a nurse practitioner. Patient with a history of stroke in 2004 chronically on aspirin and Plavix, PVD, COPD, PUD, and atrial flutter. Patient was hospitalized back in September for GI bleed with no obvious source of bleeding identified. At that time his aspirin and Plavix were stopped. Previously patient had refused catheter ablation as well as Watchman device with Dr. Henry. Previous visit we were able to come to a decision that patient would go ahead with the Watchman procedure at least. However, later daughter called and stated patient is refusing this again. Repeat H&H since hospital discharge was stable at 12.7 and 36.6 and therefore we decided together that patient would goal on low-dose Eliquis therapy however patient was not tolerating this due to complaints of restless legs and stopped taking it about 2 weeks ago. Patient himself switched to aspirin and Plavix 2 weeks ago. We recently repeated his blood work. Patient does note that his stools have started to get darker. Since hospital discharge, the daughter states that patient never followed up with GI. Today, patient denies any cardiac symptoms of exertional chest pain, shortness of breath, dizziness, palpitations, orthopnea, PND, leg edema, presyncope, or syncope. [facility] Medical History COPD (chronic obstructive pulmonary disease) PVD (peripheral vascular disease) Emphysema of lung HTN (hypertension) HLD (hyperlipidemia) Prostate cancer CVA (cerebral vascular accident) Surgical History Hx of prostate biopsy Hx of colonoscopy Hx of esophagogastroduodenoscopy Social History Household Members: Family Housing: House Are you a primary residential caregiver to a significant other at home: No Do you presently have visiting nurse or other home services: No Comment: family in room Patient Tobacco Use Status: Current everyday Tobacco user Tobacco use type: Cigarette Cigarettes Per Day: 6 service: No Review of Systems Const Denies chills, Denies fatigue, Denies fever(s), Denies frequent falls, Denies weakness, Denies weight gain and Denies weight loss ENT Denies dizziness Card Denies chest pain, Denies leg edema, Denies lightheadedness, Reports palpitations, Reports dyspnea and Reports dyspnea on exertion Resp Denies cough, Reports dyspnea and Reports dyspnea on exertion GI Denies hematochezia Musc Denies abnormal gait, Denies muscle weakness, Denies numbness, Denies radiating pain into limb and Denies tingling Neuro Denies abnormal gait, Denies dizziness, Denies frequent falls, Denies numbness, Denies tingling and Denies weakness Endo Denies fatigue and Reports palpitations Physical Exam Vital Signs: Last Vital Signs Pulse 65 03/08/25 13:04 BP 130/64 03/08/25 13:04 BMI result Body Mass Index 26.1 Const General: cooperative, healthy appearing, comfortable and no acute distress Orientation/consciousness: patient oriented x3 HEENT Head: Yes normal to inspection Neck Neck: Yes normal visual inspection, Yes trachea midline and Yes supple Chest Chest palpation & inspection: normal inspection of the chest Resp Effort & Inspection: normal respiratory effort Auscultation: clear to auscultation bilaterally, no crackles, no rales, no rhonchi and no wheezes Cardio Jugular venous distension: no JVD Palpation: normal PMI Rate: regular rate Rhythm: regular rhythm Heart sounds: S1 normal heart sound present, S2 normal heart sound present, no click, no gallops, no murmurs and no rubs Peripheral pulses: Peripheral pulses 2+ throughout GI Inspection: Yes normal to inspection Palpation (GI): Soft to palpation Auscultation: normal bowel sounds Skin General skin exam: no rashes or lesions noted Neuro General: patient oriented x3 Extrem General: Yes normal to inspection, No no pedal edema and No calf tenderness Psych Appearance: grossly normal Mental Status: mental status grossly normal Speech and movement: Normal speech and movement present Office Procedures EKG Details: EKG today showed normal sinus rhythm, rate 65 beats per minute, nonspecific intraventricular block, nonspecific STT wave, [place] [address]-[id number], Complete Assessment & Plan Assessment & Plan (1) Atrial flutter: Code(s): I48.92 - Unspecified atrial flutter Category: Medical (2) History of CVA (cerebrovascular accident): Code(s): Z86.73 - Personal history of transient ischemic attack (TIA), and cerebral infarction without residual deficits Category: Medical (3) HTN (hypertension): Code(s): I10 - Essential (primary) hypertension Category: Medical Plan EKG today showed normal sinus rhythm. Patient discontinued his Eliquis approximately 2 weeks ago due to his leg restlessness, and restarted his aspirin and Plavix instead on his own. Patient today reports darker stools and his recent H&H has dropped to 10.8 and 32.1 raising concerns for possible GI bleed. However, patient has not followed up with GI since hospital discharge. He was seen by Dr. Ram during hospitalization, we will send an urgent referral to his office to expedite GI evaluation. We will hold his aspirin immediately and continue on a monotherapy of clopidogrel only. We will also repeat CBC. Patient continues to decline both Watchman procedure and catheter ablation with a complete understanding of his risks. 11/29/2023-echo at [facility] showed a normal LV systolic function with an ejection fraction between 55-60%, moderate to severe dilation of both atria, moderately calcified aortic valve, and mobile echogenic density at the base of left atrium of unclear significance. Given this finding on his echo, the family has requested a repeat echocardiogram, which we will arrange. Blood pressure today is well-controlled, continue current antihypertensive regimen. Advised monitoring blood pressures at home with a goal of less than 130/80. Advised heart healthy diet, exercise as tolerated, and medication adherence. Follow-up in 3 months, sooner if needed. In the interim, patient will call the office with any concerns or change in symptoms. This note was generated using voice recognition software. While every effort has been made to ensure accuracy and proper extrusion manager, there may be occasional errors that could affect the content or meaning of the described symptoms. Orders: Orders AMB EKG-In Office Today I48.92 - Unspecified atrial flutter CA echo transthoracic complete Today I48.92 - Unspecified atrial flutter Complete Blood Count no Diff Today I48.92 - Unspecified atrial flutter, K92.2 - Gastrointestinal hemorrhage, unspecified Referrals Gastroenterology Referral K92.2 - Gastrointestinal hemorrhage, unspecified Coding Level of Care Code Est Pt Level 4 (49869) Complex EM visit Add On G2211 Diagnoses Atrial flutter I48.92 History of CVA (cerebrovascular accident) Z86.73 HTN (hypertension) I10 CPT Codes EKG - CPT: 04778-[id number], Complete ([id number]) Time Spent (min) 32 Comment Time spent in reviewing the chart, test results, assessment, counseling and documentation.
[2025-03-08 13:04] VITALS: BP 130/64; PULSE 65; BMI 26.1
== END 2025-03-08 13:39 | disposition home or self-care (01) ==
DX: I48.92 Unspecified atrial flutter (principal); Z86.73 Personal history of transient ischemic attack (TIA), and cerebral infarction without residual deficits; I10 Essential (primary) hypertension
CPT/HCPCS: 93010; 99214; G2211

== ENCOUNTER → 2025-03-08 12:55 | Outpatient (BNVA) | payer OTHER, SELFPAY | DX: I48.92 Unspecified atrial flutter (principal); I10 Essential (primary) hypertension; Z86.73 Personal history of transient ischemic attack (TIA), and cerebral infarction without residual deficits | CPT/HCPCS: 93005; 99212 ==

== ENCOUNTER 2025-03-12 10:02 | Outpatient (REF) | payer OTHER, SELFPAY ==
--- OUTSIDE RECORDS SUMMARY | 2025-03-12 11:29 | XMS_ITS | Clinical Summary ---
Author Organization [facility] Address [address] [place] [address] Phone Care Team Providers Care Competitive Shopper Name Role Phone Elisa Vazquez NP Primary Care Provider [phone] Allergies Active Allergy Reactions Criticality Noted Date Comments Lisinopril Anaphylaxis High 11/29/2017 Medications amLODIPine (NORVASC) 5 mg tablet TAKE 1 TABLET BY MOUTH DAILY 1 Active eszopiclone (LUNESTA) 2 mg tablet Take 1 tablet by mouth at bedtime as needed for Insomnia. 1 Active gemfibroziL (LOPID) 600 mg tablet Take 1 Tablet by mouth 2 times daily (before meals). Active ketoconazole (NIZORAL) 2 % cream APPLY TO THE BACK TWICE DAILY FOR 2 TO 3 WEEKS UNTIL HEALED. IF NO EFFECT, STOP AND CALL THE DOCTOR 1 Active ketoconazole (NIZORAL) 2 % shampoo APPLY TO SCALP AND EYEBROWS TOPICALLY TWICE A WEEK DIRECTED 1 Active lovastatin (MEVACOR) 40 mg tablet TAKE 1 TABLET BY MOUTH AT BEDTIME 2 Active metoprolol succinate (TOPROL-XL) 50 mg 24 hr tablet TAKE 1 TABLET BY MOUTH TWICE DAILY 2 Active naloxone (NARCAN) 4 mg/0.1 mL nasal spray by Nasal route. Active omeprazole (PriLOSEC) [address] capsule Take 1 Capsule by mouth 2 times daily (before meals). Take on empty stomach, wiat 30 mins and then eat to activate the medication- before breakfast and dinner 3 Active QUEtiapine (SEROquel) 100 mg tablet TAKE 3 TABLETS BY MOUTH AT BEDTIME 2 Active omeprazole (PriLOSEC) [address] capsule TAKE 1 CAPSULE BY MOUTH DAILY 1 Active traMADoL (ULTRAM) 50 mg tablet 2 tab am 1 tab noon 2 tab pm 2 tab hs times 7 days then 2 tab am 1 tab noon 1 tab pm 2 tab hs times 7 days then 1 tab am 1 tab noon 1 tab pm 2 tab hs times 7 days then 1 tab qid times 7 days 1 Active cyclobenzaprine (FLEXERIL) 5 mg tablet TAKE 1 TABLET BY MOUTH EVERY DAY AT BEDTIME NEEDED FOR LEG CRAMPS 5 Active furosemide (LASIX) 20 mg tablet Take 1 tablet (20 mg total) by mouth 1 (one) time each day. 4 Active Active Problems Problem Noted Date Diagnosed Date Seborrheic dermatitis 01/22/2020 Bilateral leg pain 01/07/2017 Overview (10/17/2024): Chronic, takes tramadol for this Prostate cancer ([facility] V24, [facility] V28) 09/16 Impaired fasting glucose 03/05/2016 Insomnia 12/12/2012 Overview (10/17/2024): On Lunesta, effective; Sonata, Ambien were all ineffective Bilateral inguinal hernia 11/03/2012 Adrenal adenoma 08/01/2012 Depression 01/05/2012 Overview (10/17/2024): Per daughter, started after CVA. Seroquel 300 mg qhs prescribed by prev PCP Dr. Sejal Hewitt for agitation and sleep . No formal diagnosis of bipolar d/o or psychosis Unilateral atherosclerotic r enal artery stenosis ([facility] V24) 01/05/2012 GERD (gastroesophageal reflux disease) 1 CAD (coronary artery disease) 10/22/2010 Dyslipidemia 10/22/2010 Dysphagia as late effect of cerebrovascular acci dent (CVA) 10/22/2010 Overview (10/17/2024): 2006. Minimal residual swallowing difficulty, deep voice and slightly slower speech per daughter, otherwise full strength HTN (hypertension) 10/22/2010 Overview (10/17/2024): ABPM 03/2018 controlled BP, c/w white coat syndrome PVD (peripheral vascular disease) ([facility] V24) 10/22/2010 Immunizations Name Administration Dates Next Due Influenza Quadravalent, MDCK , 0.5ml, preservative free (Flucelvax) 6mo and older 06/03/2020 Influenza Quadravalent, MDCK , 0.5ml, with preservative (Flucelvax) 6mo and older 08/08/2017 Influenza trivalent, 0.5mL ( Fluad) 65yo and older 08/03/2021,09/04/2019,06/27/2018,07/08,06/24/2015 Influenza trivalent, 0.5mL, preservative free (Fluarix; FluLaval; Fluzone) ages 6mo and older (Afluria) 3 years and older 10/24/2015,07/16/2014,07/03/2013,08/31 Pneumococcal conjugate 13 va lent (Prevnar 13, PCV13) 2mo and older 08/08/2017 Pneumococcal polysaccharide 23 valent (Pneumovax 23) 2yo and older 07/16/2014 Tdap Tetanus diptheria acell ular pertussis (Boostrix; Adacel) 7yo and older 01/04/2012 Surgical History Surgery Date Site/Laterality Comments ANGIOPLASTY 09/08/2016 PROCEDURE: HISTORICAL ANGIOPLASTY W/STENT; COMMENT: lower extremity - Dr. Perez COLONOSCOPY W/ BIOPSIES 08/28/2018 PROCEDURE: ID COLONOSCOPY STOMA W/BIOPSY SINGLE/MULTIPLE; COMMENT: Diminutive adenoma and hemorrhoids; repeat under propofol in 5 yrs ESOPHAGOGASTRODUODENOSCOPY 08/28/18 Lizette PROCEDURE: ID ESOPHAGOGASTRODUODENOSCOPY TRANSORAL DIAGNOSTIC; COMMENT: Mild Schatzki ring, not dilated Medical History Medical History Date Comments GERD (gastroesophageal reflu x disease) 09/01/2011 DX:GERD (gastroesophageal re flux disease) Bradycardia 10/22/2010 DX:Bradycardia CAD (coronary artery disease) 10/22/2010 DX :CAD (coronary artery disease) CVA (cerebral infarction) 10/22/2010 DX:CVA (cerebral infarction) Dyslipidemia 10/22/2010 DX:Dyslipidemia HTN (hypertension) 10/22/2010 DX:HTN (hyper tension) Poor compliance with medication 01/05/2012 DX:Poor compliance with medication History of syncope 10/22/2010 DX:History of syncope; COMMENT: Hospitalized for bradycardia in 2009 after doubling up on metoprolol on his own Insomnia 12/12/2012 DX:Insomnia; COM MENT: On Lunesta, effective; Sonata, Ambien were all ineffective Blood in stool DX:Blood in stoo l Change in bowel movement DX:Nelson ge in bowel movement Anemia DX:Anemia H/O: CVA (cerebrovascular accident) DX:H/O: CVA (cerebrovascular accident) Gastritis DX:Gastritis Tubular adenoma of colon DX:Tubu lar adenoma of colon Anemia DX:Anemia History of gastric ulcer DX:Hist ory of gastric ulcer History of CVA (cerebrovascu lar accident) DX:History of CVA (cerebrova scular accident) Iron deficiency anemia DX:Iron d eficiency anemia Family History Medical History Relation Name Comments Stomach cancer Father Colon cancer Neg Hx Heart attack Neg Hx Prostate cancer Neg Hx Relation Name Status Comments Father Social History Tobacco Use Types Packs/Day Years Used Date Smoking Tobacco: Every Day Cigarettes 1 70.9 Started: 1955 Smokeless Tobacco: Never Alcohol Use Standard Drinks/Week Comments Yes 0 (1 standard drink = 0.6 oz pur e alcohol) Sex and Gender Information Value Date Recorded Sex Assigned at Male 09/24/2024 10:40 AM EST Legal Sex Male 1:06 AM EST Gender Identity Male 09/24/2024 10:40 AM EST Sexual Orientation Not on file Obstetrics History Last Filed Vital Signs Vital Sign Reading Time Taken Comments Blood Pressure 150/67 12/07/2024 12:08 PM EST Pulse 69 12/07/2024 12:08 PM EST Temperature 36.7 ??C (98.1 ??F) 12/07/2024 12:[address] Respiratory Rate - - Oxygen Saturation 98% 12/07/2024 12:08 PM EST Inhaled Oxygen Concentration - - Weight 75.8 kg (167 lb) 12/07/2024 12:08 PM EST Height 167.6 cm (5' 6 ) 10/24/2024 2:13 PM EST Body Mass Index 26.95 10/24/2024 2:13 PM EST Plan of Treatment Upcoming Encounters Date Type Department Care Team (Late st Contact Info) Description 06/11/2025 11:30 AM EDT Office Visit [facility] Hematology Oncology [address] [place] [address] Luis Flores MD [address] [place] [address] Health Maintenance Due Date Last Done Comments COVID-19 Vaccine (#1) 1955 Zoster Vaccines (1 of 2) 1968 Depression Screening 09/11/2022 Falls Risk Assessment 09/11/2022 Medicare Annual Wellness Visit 09/11/2022 Social Influencers of Health Screening 09/11/2022 RSV Immunization Adult Patients (1 - 1-dose 75+ series) 2024 Lung Cancer Screening (Low Dose CT) 02/19/2025 02/20/2024, 02/17/2024, 12/02/2022, Additional history exists Influenza Vaccine (Season Ended) 2025 07/26/2023, 09/13/2022, 08/03/2021, Additional history exists Hypertension/CHF/CAD Annual BMP Blood Test 11/09/2025 11/09/2024, 01/31/2023 Cholesterol Screening (Lipid Panel) 01/13/2026 01/13/2021 Colorectal Cancer Screening: Colonoscopy 01/24/2026 10/22/2022 DTaP,Tdap,and Td Vaccines (3 - Td or Tdap) 02/26/2032 02/25/2022, 01/04/2012 Hepatitis C Screening Completed 01/03/2015 Pneumococcal Vaccine: 50+ Years Completed 08/08/2017, 07/16/2014 Abdominal Aortic Aneurysm (AAA) Screen Completed 08/17/2018, 07/10/2018 HIB Vaccines Aged Out No longer eligi ble based on patient's age to complete this topic HPV Vaccines Aged Out No longer eligi ble based on patient's age to complete this topic Hepatitis A Vaccines Aged Out No long er eligible based on patient's age to complete this topic Hepatitis B Vaccines Aged Out No long er eligible based on patient's age to complete this topic IPV Vaccines Aged Out No longer eligi ble based on patient's age to complete this topic MMR Vaccines Aged Out No longer eligi ble based on patient's age to complete this topic Meningococcal ACWY Vaccine Aged Out N o longer eligible based on patient's age to complete this topic Meningococcal B Vaccine Aged Out No l onger eligible based on patient's age to complete this topic RSV Immunization Patients Under 20 months Aged Out No longer eligible based on patient's age to complete this topic Varicella Vaccines Aged Out No longer eligible based on patient's age to complete this topic Procedures Procedure Name Priority Date/Time Associated Diagnosis Comments PROSTATE SPECIFIC ANTIGEN DIAGNOSTIC Routine 12/10/2024 12:08 PM EDT Prostate cancer ([facility] V24, [facility] V28) COMPREHENSIVE METABOLIC PANEL Routine 11/09/2024 10:03 AM EST Prostate cancer ([facility] V24, [facility] V28) CT LUNG SCREENING LOW DOSE Routine 02/20/2024 11:00 AM EDT Encounter for screening for malignant neoplasm of respiratory organs COLONOSCOPY Routine 10/22/2022 LIPID PANEL Routine 01/13/2021 ABDOMINAL AORTIC ANEURYSM SCRREN Routine 08/17/2018 HEPATITIS C SCREENING Routine 01/03/2015 from Last 3 Months or Most Recently Relevant to Health Maintenance Results * Prostate specific antigen diagnostic (12/10/2024 12:08 PM EDT) PSA 1.04 0.00 - 4.00 ng/mL LAB CHEMISTRY METHOD 12/10/2024 2:13 PM EDT [facility] Blood Venous blood specimen / Unknown Venipuncture / Unknown 12/10/2024 12:08 PM EDT 12/10/2024 12:08 PM EDT Narrative [facility] - 12/10/2024 2:13 PM EDT The Siemens Advia Centaur Chemiluminescent Immunoassay is used. Results obtained with different assay methods or kits cannot be used interchangeably. Results cannot be interpreted as absolute evidence of the presence or absence of malignant disease. us Luis Flores MD LAB BLOOD ORDERABLES Final Result [facility] [address] [place] [address], * (ABNORMAL) Comprehensive metabolic panel (11/09/2024 10:03 AM EST) Sodium 140 133 - 145 mmol/L LAB CHEMISTRY METHOD 11/09/2024 12:59 PM [facility] Potassium 4.0 3.5 - 5.5 mmol/L LAB CHEMISTRY METHOD 11/09/2024 12:59 PM [facility] Chloride 109 96 - 110 mmol/L LAB CHEMISTRY METHOD 11/09/2024 12:59 PM [facility] CO2 24 21 - 32 mmol/L LAB CHEMISTRY METHOD 11/09/2024 12:59 PM [facility] Anion Gap 7 3 - 11 LAB CHEMISTRY METHOD 11/09/2024 12:59 PM [facility] Glucose 135(H) 70 - 100 mg/dL LAB CHEMISTRY METHOD 11/09/2024 12:59 PM [facility] BUN 17 5 - 25 mg/dL LAB CHEMISTRY METHOD 11/09/2024 12:59 PM [facility] Creatinine 1.25 0.70 - 1.30 mg/dL LAB CHEMISTRY METHOD 11/09/2024 12:59 PM [facility] eGFR 60 >=60 mL/min/1. 73m2 LAB CHEMISTRY METHOD 11/09/2024 12:59 PM [facility] Comment:Calculation based on the??Chronic Kidney Disease Epidemiology Collaboration (CKD-EPI) equation refit??without adjustment for race. BUN/Creatinine Ratio 13.6 LAB CHEMISTRY METHOD 11/09/2024 12:59 PM [facility] Calcium 10.1 8.5 - 10.5 mg/dL LAB CHEMISTRY METHOD 11/09/2024 12:59 PM [facility] AST (SGOT) 44(H) 10 - 42 unit/L LAB CHEMISTRY METHOD 11/09/2024 12:59 PM [facility] ALT (SGPT) 37 10 - 60 unit/L LAB CHEMISTRY METHOD 11/09/2024 12:59 PM [facility] Alkaline Phosphatase 114 42 - 121 unit/L LAB CHEMISTRY METHOD 11/09/2024 12:59 PM [facility] Total Protein 7.2 6.0 - 8.0 g/dL LAB CHEMISTRY METHOD 11/09/2024 12:59 PM [facility] Albumin 3.9 3.2 - 5.0 g/dL LAB CHEMISTRY METHOD 11/09/2024 12:59 PM [facility] Total Bilirubin 0.5 0.0 - 1.4 mg/dL LAB CHEMISTRY METHOD 11/09/2024 12:59 PM [facility] Blood Venous blood specimen / Unknown Venipuncture / Unknown 11/09/2024 10:03 AM EST 11/09/2024 12:29 PM EST us Luis Flores MD LAB BLOOD ORDERABLES Final Result [facility] [address] [place] [address], [place] [phone] * CT LUNG SCREENING LOW DOSE (02/20/2024 11:00 AM EDT) Anatomical Region Laterality Modality Computed Tomogra phy 02/17/2024 1:16 PM EDT Narrative 02/20/2024 11:00 AM EDT [facility] Diagnostic Imaging Department [address] [place] [address] Patient: ??MARIO RAMÍREZ ?/Age/Sex: 1950 - 73 - M Unit#: ??[id number] ? Location/Status: ??SPDICATLS/REG CLI ? Mnemonic/Ordering Site: ??CTLUNGLD/SPCT Ordering Physician: ??ISIS GARCIA MD CT Lung Screening Low Dose - 02/17/24 - 1343 Report Status:Signed Chest CT, 02/20/2024 10:18 AM. TECHNIQUE: Low-dose CT of the chest without intravenous contrast administration. ??Coronal and sagittal reformats and MIP reconstructions were created. Dose length product: 173 ??mGy-cm. HISTORY: LOW DOSE LUNG SCREENING COMPARISON: 12/01/2022. FINDINGS: Lungs/pleura: Central airways are clear and normal in caliber. ??No endobronchial nodule. ??Mild centrilobular emphysema. ??Patchy peripheral groundglass opacities and mild bronchial wall thickening suggesting a small airways inflammatory process, similar to the previous study. ??There are scattered tiny calcified and noncalcified pulmonary nodules which are unchanged. Bandlike opacity suggesting scarring in the inferior lingula is stable. Increased bandlike scarring or atelectasis in the inferior right middle lobe; the previously described 3 mm pulmonary nodule in this area is obscured by this bandlike opacity. ??No pleural effusion or pneumothorax. Mediastinum/susan: No mass or lymphadenopathy. ??Calcified right hilar nodes suggesting prior granulomatous disease. Vasculature: Normal caliber pulmonary arteries. ??Mild atherosclerotic calcification. Cardiac: Severe coronary artery calcification. ??Normal heart size. Chest wall: No mass or adenopathy. Limited abdomen: Hepatic steatosis. ??Pancreas is only partially visualized but appears moderately atrophic. Bones: Mild degenerative changes of the shoulders and spine. IMPRESSION: Lung RADS 2. ??Recommend repeat annual low-dose screening CT in 12 months as per guidelines. Dictating Physician: ??FEMI TRINH MD Electronically Signed by: ??FEMI TRINH MD Dic Date/Time: ??02/20/24 1018 Sign date/Time: ??02/20/24 1100 Procedure Note Femi Trinh MD - 05/21/2024 [facility] Diagnostic Imaging Department [address] [place] [address] Patient: DARRELLMARIO./Age/Sex: 1950 - 73 - M Unit#: [id number] [facility]Ordering Site[facility] Ordering Physician: ISIS GARCIA MD CT Lung Screening Low Dose - 02/17/24 - 1343 Report Status:Signed Chest CT, 02/20/2024 10:18 AM. TECHNIQUE: Low-dose CT of the chest without intravenous contrast administration. Coronal and sagittal reformats and MIP reconstructionswere created. Dose length product: 173 mGy-cm. HISTORY: LOW DOSE LUNG SCREENING COMPARISON: 12/01/2022. FINDINGS: Lungs/pleura: Central airways are clear and normal in caliber. No endobronchial nodule. Mild centrilobular emphysema. Patchy peripheral groundglass opacities and mild bronchial wall thickening suggesting asmall airways inflammatory process, similar to the previous study. There are scattered tiny calcified and noncalcified pulmonary nodules which areunchanged. Bandlike opacity suggesting scarring in the inferior lingula is stable. Increased bandlike scarring or atelectasis in the inferior right middlelobe; the previously described 3 mm pulmonary nodule in this area is obscured bythis bandlike opacity. No pleural effusion or pneumothorax. Mediastinum/susan: No mass or lymphadenopathy. Calcified right hilarnodes suggesting prior granulomatous disease. Vasculature: Normal caliber pulmonary arteries. Mild atherosclerotic calcification. Cardiac: Severe coronary artery calcification. Normal heart size. Chest wall: No mass or adenopathy. Limited abdomen: Hepatic steatosis. Pancreas is only partially visualizedbut appears moderately atrophic. Bones: Mild degenerative changes of the shoulders and spine. IMPRESSION: Lung RADS 2. Recommend repeat annual low-dose screening CT in 12 monthsas per guidelines. Dictating Physician: FEMI TRINH MD Electronically Signed by: FEMI TRINH MD Dic Date/Time: 02/20/24 1018 Sign date/Time: 02/20/24 1100 Isis Garcia MD IMG CT PROCEDURES Final Result * Colonoscopy (10/22/2022) Colonoscopy negative, abstracted Anatomical Region Laterality Modality Other Historical Provider HEALTH MAINTENANCE Final Result * (ABNORMAL) Lipid panel (01/13/2021) LDL/HDL Ratio 3 0 - 4 Triglycerides 272(A) 0 - 150 mg/dL Cholesterol 172 0 - 200 mg/dL HDL 52 >=40 mg/dL LDL Cholesterol 66 0 - 100 mg/dL Blood Venous blood specimen / Unknown Historical Provider LAB BLOOD ORDERABLES Karla l Result * Abdominal Aortic Aneurysm Screen (08/17/2018) Abdominal Aortic Aneurysm (AAA) Screening abstracted Anatomical Region Laterality Modality Other Historical Provider HEALTH MAINTENANCE Final Result * Hepatitis C Screening (01/03/2015) Hepatitis C Screening abstracted us Historical Provider HEALTH MAINTENANCE Final Result from Last 3 Months or Most Recently Relevant to Health Maintenance Insurance [facility] [employer] Member Subscriber Plan / Payer (Ef fective 2024-Present) Name:Mario Ramírez Relation to Subscriber:Self Name:Mario Ramírez Payer ID:[id number] Group ID:Not on file Type:Not on file Address: [place] [address] [address] [address] Care Teams Competitive Shopper Relationship Specialty Start Date End Date Elisa Vazquez NP [address] [place] [phone] PCP - General 09/15/22
[2025-03-12 13:13] LABS: MANUAL DIFF FLAG NO
[2025-03-12 13:36] LABS: Basophils Absolute Auto 0.1 X10*3/uL (0.0-0.2); Basophils Percent Auto 0.4 % (0-2); Eosinophils Absolute Auto 0.7 X10*3/uL (0.0-0.4); Eosinophils Percent Auto 4.1 % (0-4); Hematocrit 31.8 % (42.0-52.0); Hemoglobin 10.5 g/dl (14.0-18.0); Imm Gran Abs Auto 0.08 X10*3/uL (0.00-0.03); Imm Gran Pct Auto 0.5 % (0.0-0.4); Lymphocytes Absolute Auto 1.4 X10*3/uL (1.2-4.9); Lymphocytes Percent Auto 7.7 % (20-40); Mean Corpuscular Hemoglobin 31.1 pg (27.0-33.0); Mean Corpuscular Volume 94.1 fL (80.0-98.0); Mean Platelet Volume 12.3 fL (9.4-12.4); Monocytes Absolute Auto 1.3 X10*3/uL (0.1-1.2); Monocytes Percent Auto 7.4 % (2-11); Neutrophils Percent Auto 79.9 % (45-73); Platelet Count 252 X10*3/uL (160-400); Red Blood Count 3.38 X10*6/uL (4.60-5.80); Red Cell Distribution Width 13.4 % (11.0-16.0); White Blood Count 17.6 X10*3/uL (4.8-10.8)
[2025-03-12 13:57] LABS: Iron 25 mcg/dL (45-160); Percent Iron Saturation 7 % (15-50); Total Iron Binding Capacity 356 mcg/dL (228-428); Unsaturated Iron Binding 331 ug/dL
[2025-03-12 14:14] LABS: Ferritin 27 ng/mL (20-250)
[2025-03-12 14:25] LABS: Folate 10.3 ng/mL (> or = 4.0); Vitamin B12 486 pg/mL (200-900)
== END 2025-03-12 10:03 | disposition home or self-care (01) ==
LOC: HO.10HDL 10:02
PROVIDERS: Visit Provider Internal Medicine
DX: D64.9 Anemia, unspecified (principal)
CPT/HCPCS: 36415; 82607; 82728; 82746; 83540; 85025

== ENCOUNTER 2025-03-26 11:05 | Outpatient (REF) | payer OTHER, SELFPAY ==
--- OUTSIDE RECORDS SUMMARY | 2025-03-26 12:45 | XMS_ITS | Clinical Summary ---
Author Organization [facility] Address [address] [place] [address] Phone Care Team Providers Care Aerial Photograph Interpreter Name Role Phone Elisa Vazquez NP Primary Care Provider Allergies Active Allergy Reactions Criticality Noted Date [...] Chronic, takes tramadol for this Prostate cancer ([facility] V24, [facility] V28) 09/16 Impaired fasting glucose 03/05/2016 Insomnia [...] psychosis Unilateral atherosclerotic r enal artery stenosis ([facility] V24) 01/05/2012 GERD (gastroesophageal reflux disease) 1 CAD (coronary artery disease) 10/22/2010 Dyslipidemia 10/22/2010 Dysphagia as late effect of cerebrovascular acci dent (CVA) 10/22/2010 Overview (10/17/2024): 2006. Minimal residual swallowing difficulty, deep voice and slightly slower speech per daughter, otherwise full strength HTN (hypertension) 10/22/2010 Overview (10/17/2024): ABPM 03/2018 controlled BP, c/w white coat syndrome PVD (peripheral vascular disease) ([facility] V24) 10/22/2010 Immunizations Name Administration Dates Next [...] Dr. Perez COLONOSCOPY W/ BIOPSIES 08/28/2018 PROCEDURE: WI COLONOSCOPY STOMA W/BIOPSY SINGLE/MULTIPLE; COMMENT: Diminutive adenoma and hemorrhoids; repeat under propofol in 5 yrs ESOPHAGOGASTRODUODENOSCOPY 08/28/18 Lizette PROCEDURE: WI ESOPHAGOGASTRODUODENOSCOPY TRANSORAL DIAGNOSTIC; COMMENT: Mild Schatzki ring, [...] 69 12/07/2024 12:08 PM EST Temperature 36.7 C (98.1 F) 12/07/2024 12:08 PM EST Respiratory Rate - - Oxygen Saturation 98% [...] Description 06/11/2025 11:30 AM EDT Office Visit [facility] Hematology Oncology [address] [place] [address] Luis Flores MD [address] [place] [address] Health Maintenance Due Date Last [...] Procedure Name Priority Date/Time Associated Diagnosis Comments COMPREHENSIVE METABOLIC PANEL Routine 11/09/2024 10:03 AM EST Prostate cancer (CMS/HCC V24, CMS/HCC V28) CT LUNG SCREENING LOW DOSE Routine 02/20/2024 11:00 AM EDT Encounter for screening for malignant neoplasm of respiratory organs COLONOSCOPY Routine 10/22/2022 LIPID PANEL Routine 01/13/2021 ABDOMINAL AORTIC ANEURYSM SCRREN Routine 08/17/2018 HEPATITIS C SCREENING Routine 01/03/2015 from Last 3 Months or Most Recently Relevant to Health Maintenance Results * (ABNORMAL) Comprehensive metabolic panel (11/09/2024 10:03 AM EST) Sodium 140 133 - 145 mmol/L LAB CHEMISTRY METHOD 11/09/2024 12:59 PM [facility] Potassium 4.0 3.5 - 5.5 mmol/L LAB CHEMISTRY METHOD 11/09/2024 12:59 PM [facility] Chloride 109 96 - 110 mmol/L LAB CHEMISTRY METHOD 11/09/2024 12:59 PM [facility] CO2 24 21 - 32 mmol/L LAB CHEMISTRY METHOD 11/09/2024 12:59 PM [facility] Anion Gap 7 3 - 11 LAB CHEMISTRY METHOD 11/09/2024 12:59 PM [facility] Glucose 135(H) 70 - 100 mg/dL LAB CHEMISTRY METHOD 11/09/2024 12:59 PM [facility] BUN 17 5 - 25 mg/dL LAB CHEMISTRY METHOD 11/09/2024 12:59 PM [facility] Creatinine 1.25 0.70 - 1.30 mg/dL LAB CHEMISTRY METHOD 11/09/2024 12:59 PM [facility] eGFR 60 >=60 mL/min/1. 73m2 LAB CHEMISTRY METHOD 11/09/2024 12:59 PM [facility] Comment:Calculation based on the Chronic Kidney Disease Epidemiology Collaboration (CKD-EPI) equation refit without adjustment for race. BUN/Creatinine Ratio 13.6 LAB CHEMISTRY METHOD 11/09/2024 12:59 PM [facility] Calcium 10.1 8.5 - 10.5 mg/dL LAB CHEMISTRY METHOD 11/09/2024 12:59 PM [facility] AST (SGOT) 44(H) 10 - 42 unit/L LAB CHEMISTRY METHOD 11/09/2024 12:59 PM [facility] ALT (SGPT) 37 10 - 60 unit/L LAB CHEMISTRY METHOD 11/09/2024 12:59 PM [facility] Alkaline Phosphatase 114 42 - 121 unit/L LAB CHEMISTRY METHOD 11/09/2024 12:59 PM [facility] Total Protein 7.2 6.0 - 8.0 g/dL LAB CHEMISTRY METHOD 11/09/2024 12:59 PM [facility] Albumin 3.9 3.2 - 5.0 g/dL LAB CHEMISTRY METHOD 11/09/2024 12:59 PM [facility] Total Bilirubin 0.5 0.0 - 1.4 mg/dL LAB CHEMISTRY METHOD 11/09/2024 12:59 PM EST [facility] Blood Venous blood specimen / Unknown Venipuncture / Unknown 11/09/2024 10:03 AM EST 11/09/2024 12:29 PM EST us Luis Flores MD LAB BLOOD ORDERABLES Final Result [facility] ([facility] H[facility] LAB [address] [place] [address], * CT LUNG SCREENING LOW DOSE (02/20/2024 11:00 AM EDT) Anatomical Region Laterality Modality Computed Tomogra phy 02/17/2024 1:16 PM EDT Narrative 02/20/2024 11:00 AM EDT [facility] Diagnostic Imaging Department [address] [place] [address] Patient: MARIO RAMÍREZ /Age/Sex: 1950 - 73 - M Unit#: [id number] Location/Status: SPDICATLS/REG CLI Mnemonic/Ordering Site: [facility] Ordering Physician: ISIS GARCIA MD CT Lung Screening Low Dose - 02/17/24 - 1343 Report Status:Signed Chest CT, 02/20/2024 10:18 AM. TECHNIQUE: Low-dose CT of the chest without intravenous contrast administration. Coronal and sagittal reformats and MIP reconstructions were created. Dose length product: 173 mGy-cm. HISTORY: [...] area is obscured by this bandlike opacity. No pleural effusion or pneumothorax. Mediastinum/susan: No mass or lymphadenopathy. Calcified right hilar nodes suggesting prior granulomatous disease. Vasculature: Normal caliber pulmonary arteries. Mild atherosclerotic calcification. Cardiac: Severe coronary artery calcification. Normal heart size. Chest wall: No mass or adenopathy. Limited abdomen: Hepatic steatosis. Pancreas is only partially visualized but appears moderately atrophic. Bones: Mild degenerative changes of the shoulders and spine. IMPRESSION: Lung RADS 2. Recommend repeat annual low-dose screening CT in 12 months as per guidelines. Dictating Physician: FEMI TRINH MD Electronically Signed by: FEMI TRINH MD Dic Date/Time: 02/20/24 1018 Sign date/Time: 02/20/24 1100 Procedure Note Femi Trinh MD - 05/21/2024 [facility] Diagnostic Imaging Department [address] [place] [address] Patient: NICCI RAMÍREZHAIL /Age/Sex: 1950 - 73 - M Unit#: [id number] Location/Status: SPDICATLS/REG CLI Mnemonic/Ordering Site: [facility] Ordering Physician: ISIS GARCIA MD CT Lung [...] Sign date/Time: 02/20/24 1100 Isis Garcia MD [facility] [place] PROCEDURES Final Result * Colonoscopy (10/22/2022) Colonoscopy negative, abstracted Anatomical Region Laterality Modality Other [facility] Provider HEALTH MAINTENANCE Final Result * (ABNORMAL) Lipid panel (01/13/2021) LDL/HDL Ratio 3 0 - 4 Triglycerides 272(A) 0 - 150 mg/dL Cholesterol 172 0 - 200 mg/dL HDL 52 >=40 mg/dL LDL Cholesterol 66 0 - 100 mg/dL Blood Venous blood specimen / Unknown Result [facility] Provider LAB BLOOD ORDERABLES Karla l Result * Abdominal Aortic Aneurysm Screen (08/17/2018) [facility]ologist [facility] Abdominal Aortic Aneurysm (AAA) Screening abstracted Anatomical Region Laterality Modality Other Result [facility] Provider HEALTH MAINTENANCE Final Result * Hepatitis C Screening (01/03/2015) Pathologist [facility] Hepatitis C Screening abstracted [facility] Provider HEALTH MAINTENANCE Final Result from Last 3 Months or Most Recently Relevant to Health Maintenance Insurance [facility] [employer] Member Subscriber Plan / Payer (Ef fective 2024-Present) Name:Mario Ramírez Relation to Subscriber:Self Name:Mario Ramírez Payer ID:[id number] Group ID:Not on file Type:Not on file Address: [address] [facility] [place] [address] Care Teams Aerial Photograph Interpreter Relationship Specialty Start Date End Date Elisa Vazquez NP [address] [place] [phone] PCP - General 09/15/22
[2025-03-26 13:10] LABS: Hematocrit 35.6 % (42.0-52.0); Hemoglobin 11.7 g/dl (14.0-18.0); Mean Corpuscular HGB Conc 32.9 g/dl (31.0-36.0); Mean Corpuscular Hemoglobin 30.5 pg (27.0-33.0); Mean Corpuscular Volume 92.7 fL (80.0-98.0); Mean Platelet Volume 11.7 fL (9.4-12.4); Platelet Count 225 X10*3/uL (160-400); Red Blood Count 3.84 X10*6/uL (4.60-5.80); Red Cell Distribution Width 13.5 % (11.0-16.0); White Blood Count 8.7 X10*3/uL (4.8-10.8)
== END 2025-03-26 11:06 | disposition home or self-care (01) ==
LOC: HO.10HDL 11:05
PROVIDERS: Referring Provider Internal Medicine
DX: D50.0 Iron deficiency anemia secondary to blood loss (chronic) (principal)
CPT/HCPCS: 36415; 85027

== ENCOUNTER → 2025-04-12 12:51 | Outpatient (REF) | payer OTHER, SELFPAY ==
--- OUTSIDE RECORDS SUMMARY | 2024-09-06 10:00 | XMS_ITS ---
Author Organization [facility] Address [address] [place] [id number] Care Team Providers Care Epic Anesthesia Analyst Name Role Phone SANTIAGO MAN Primary Care Provider Unavailable Sheldon Ram Unavailable [phone] REASON FOR VISIT UGI bleed Encounters Encounter Location Date Provider Diagnosis [facility] [address], [place] [id number] 09/06/2024 Sheldon Ram Plan Of Treatment Next Appt Details Provider Name:Sheldon Estrada Yo , 06/14/2025 01:40:00 PM, [address], [address], [place], [address], Progress Notes * BETO RAMÍREZOB:[birth year] (74 yo M)Acc No.[id number]:09/06/2024 EGD/MAC Patient: Sean DE LA PAZ MARIO Provider: Susan Ram MD :1950 A ge:74 Y S ex:Male Date:09/06/2024 Address:[address] [place], [place] [id number] Pcp:Hal CAMACHO Subjective: * Chief Complaints: * 1 . UGI bleed. * Medical History: Objective: * Vitals: Assessment: Plan: * Treatment: * * The named appointment provid er may or may not be the originator of this progress note, and it is not deemed complete until electronically signed by the appointment provider. Sign off status: Pending * Provider: Susan Ram MD Date: 1 11/07/2023 Generated for Saran le/Ann/Cliffitting on: 0 04/12/2025 12:53 PM EDT
--- OUTSIDE RECORDS SUMMARY | 2025-04-12 12:54 | XMS_ITS | Clinical Summary ---
Author Organization [facility] Address [address] [place] [address] Phone Care Team Providers Care Gift Consultant Name Role Phone Elisa Vazquez NP Primary Care Provider [phone] Allergies Active Allergy Reactions Criticality Noted Date [...] Chronic, takes tramadol for this Prostate cancer ([facility] V24, [facility] V28) 09/16 Impaired fasting glucose 03/05/2016 Insomnia 12/12/2012 Overview (10/17/2024): On Lunesta, effective; Sonata, Ambien were all ineffective Bilateral inguinal hernia 11/03/2012 Adrenal adenoma 08/01/2012 Depression 01/05/2012 Overview (10/17/2024): Per daughter, started after CVA. Seroquel 300 mg qhs prescribed by prev PCP Dr. Seajl Hewitt for agitation and sleep . No formal diagnosis of bipolar d/o or psychosis Unilateral atherosclerotic r enal artery stenosis ([facility] V24) 01/05/2012 GERD (gastroesophageal reflux disease) 1 CAD (coronary artery disease) 10/22/2010 Dyslipidemia 10/22/2010 Dysphagia as late effect of cerebrovascular acci dent (CVA) 10/22/2010 Overview (10/17/2024): 2006. Minimal residual swallowing difficulty, deep voice and slightly slower speech per daughter, otherwise full strength HTN (hypertension) 10/22/2010 Overview (10/17/2024): ABPM 03/2018 controlled BP, c/w white coat syndrome PVD (peripheral vascular disease) ([facility] V24) 10/22/2010 Immunizations Name [...] Dr. Perez COLONOSCOPY W/ BIOPSIES 08/28/2018 PROCEDURE: IN COLONOSCOPY STOMA W/BIOPSY SINGLE/MULTIPLE; COMMENT: Diminutive adenoma and hemorrhoids; repeat under propofol in 5 yrs ESOPHAGOGASTRODUODENOSCOPY 08/28/18 Lizette PROCEDURE: IN ESOPHAGOGASTRODUODENOSCOPY TRANSORAL DIAGNOSTIC; COMMENT: Mild Schatzki ring, [...] Date Smoking Tobacco: Every Day Cigarettes 1 71 Started: 1955 Smokeless Tobacco: Never Alcohol Use [...] Description 06/11/2025 11:30 AM EDT Office Visit [facility] Hematology Oncology [address] [place] [address] Luis Flores MD [address] [place] [address] Health Maintenance Due Date Last Done Comments COVID-19 Vaccine (#1) 1954 Zoster Vaccines (1 of 2) 1968 Depression Screening 09/11/2022 Falls Risk Assessment 09/11/2022 Medicare Annual Wellness Visit 09/11/2022 Social Influencers of Health Screening 09/11/2022 RSV Immunization Adult Patients (1 - 1-dose 75+ series) 2024 Lung Cancer Screening (Low Dose CT) 02/19/2025 02/20/2024, 02/17/2024, 12/02/2022, Additional history exists Influenza Vaccine (#1) 2025 , 09/13/2022, 08/03/2021, Additional history exists Hypertension/CHF/CAD Annual [...] mmol/L LAB CHEMISTRY METHOD 11/09/2024 12:59 PM [facility] Potassium 4.0 3.5 - 5.5 mmol/L LAB CHEMISTRY METHOD 11/09/2024 12:59 PM [facility] Chloride 109 96 - 110 mmol/L LAB CHEMISTRY METHOD 11/09/2024 12:59 PM [facility] CO2 24 21 - 32 mmol/L LAB CHEMISTRY METHOD 11/09/2024 12:59 PM [facility] Anion Gap 7 3 - 11 LAB CHEMISTRY METHOD 11/09/2024 12:59 PM [facility] Glucose 135(H) 70 - 100 mg/dL LAB CHEMISTRY METHOD 11/09/2024 12:59 PM [facility] BUN 17 5 - 25 mg/dL LAB CHEMISTRY METHOD 11/09/2024 12:59 PM [facility] Creatinine 1.25 0.70 - 1.30 mg/dL LAB CHEMISTRY METHOD 11/09/2024 12:59 PM [facility] eGFR 60 >=60 mL/min/1. 73m2 LAB CHEMISTRY METHOD 11/09/2024 12:59 PM [facility] Comment:Calculation based on the Chronic Kidney Disease Epidemiology Collaboration (CKD-EPI) equation refit without adjustment for race. BUN/Creatinine Ratio 13.6 LAB CHEMISTRY METHOD 11/09/2024 12:59 PM [facility] Calcium 10.1 8.5 - 10.5 mg/dL LAB CHEMISTRY METHOD 11/09/2024 12:59 PM [facility] AST (SGOT) 44(H) 10 - 42 unit/L LAB CHEMISTRY METHOD 11/09/2024 12:59 PM [facility] ALT (SGPT) 37 10 - 60 unit/L LAB CHEMISTRY METHOD 11/09/2024 12:59 PM [facility] Alkaline Phosphatase 114 42 - 121 unit/L LAB CHEMISTRY METHOD 11/09/2024 12:59 PM [facility] Total Protein 7.2 6.0 - 8.0 g/dL LAB CHEMISTRY METHOD 11/09/2024 12:59 PM [facility] Albumin 3.9 3.2 - 5.0 g/dL LAB CHEMISTRY METHOD 11/09/2024 12:59 PM [facility] Total Bilirubin 0.5 0.0 - 1.4 mg/dL LAB CHEMISTRY METHOD 11/09/2024 12:59 PM [facility] Blood Venous blood specimen / Unknown Venipuncture / Unknown 11/09/2024 10:03 AM EST 11/09/2024 12:29 PM EST us Luis Flores MD LAB BLOOD ORDERABLES Final Result [facility] ([facility] HOSPITAL LAB [address] [place] [address], * CT LUNG SCREENING LOW DOSE (02/20/2024 11:00 AM EDT) Anatomical Region Laterality Modality Computed Tomogra phy 02/17/2024 1:16 PM EDT Narrative 02/20/2024 11:00 AM EDT [facility] Diagnostic Imaging Department [address] [place] [address] Patient: MARIO RAMÍREZ /Age/Sex: 1950 - 73 - M Unit#: [id number] Location/Status: SPDICATLS/REG CLI Mnemonic/Ordering Site: [facility] Ordering Physician: ISIS GARCIA MD CT Lung Screening Low Dose - 02/17/24 - 9043 Report Status:Signed Chest CT, 02/20/2024 10:18 AM. [...] Procedure Note Femi Trinh MD - 05/21/2024 [facility] Diagnostic Imaging Department [address] [place] [id number] Patient: MARIO RAMÍREZ /Age/Sex: 1950 - 73 - M Unit#: [id number] Location/Status: SPDICATLS/REG CLI Mnemonic/Ordering Site: [facility] Ordering Physician: ISIS GARCIA MD CT Lung [...] Sign date/Time: 02/20/24 1100 Isis Garcia MD [facility] [place] PROCEDURES Final Result * Colonoscopy (10/22/2022) Colonoscopy negative, abstracted Anatomical Region Laterality Modality Other Tati Mazariegos MD HEALTH MAINTENANCE Final Result * (ABNORMAL) Lipid [...] C Screening (01/03/2015) Hepatitis C Screening abstracted Historical Provider HEALTH MAINTENANCE Final Result from Last 3 Months or Most Recently Relevant to Health Maintenance Insurance [facility] [employer] Member Subscriber Plan / Payer (Ef fective 2024-Present) Name:Mario Ramírez Relation to Subscriber:Self Name:Mario Ramírez Payer ID:[id number] Group ID:Not on file Type:Not on file Address: [facility] [address] [place] [address] Care Teams Gift Consultant Relationship Specialty Start Date End Date Elsia Vazquze NP [address] [place] [phone] PCP - General 09/15/22
--- OUTSIDE RECORDS SUMMARY | 2025-04-12 12:54 | XMS_ITS | Clinical Summary ---
Author Organization [facility] Address [address] [place] [address] Phone Care Team Providers Care Detasseling Crew Supervisor Name Role Phone Elisa Diaz NP Primary Care Provider [phone] Medications amLODIPine (NORVASC) 5 MG tablet Take 5 mg by mouth 05/24/2024 Active Aspirin 81 MG capsule Take 81 mg by mouth 05/24/2024 Active aspirin (ST JAMES) 81 MG EC tablet Take 1 tablet by mouth 1 (one) time each day Active clopidogrel (PLAVIX) 75 MG tablet Take 75 mg by mouth 05/24/2024 Active eszopiclone (Lunesta) 2 MG tablet Take 1 tablet by mouth at bed time Active eszopiclone (Lunesta) 1 MG tablet Take 1 mg by mouth 05/24/2024 Active gemfibrozil (Lopid) 600 MG tablet Take 600 mg by mouth 05/24/2024 Active lovastatin (MEVACOR) 40 MG tablet Take 40 mg by mouth 05/24/2024 Active metoprolol succinate XL (TOPROL XL) 50 MG 24 hr tablet Take 1 tablet by mouth 1 (one) time each day Active QUEtiapine (SEROquel) 100 MG tablet Take 100 mg by mouth 05/24/2024 Active traMADol (ULTRAM) 50 MG tablet Take 50 mg by mouth 05/24/2024 Active Active Problems Problem Noted Date Diagnosed Date Adrenal mass 10/23/2024 Coronary arteriosclerosis 10/23/2024 Dyslipidemia 10/23/2024 Hypertensive disorder 10/23/2024 Renal artery stenosis 10/23/2024 Family History Medical History Relation Comments Cancer Father stomache Diabetes Mother Hypertension Mother Stroke Mother Relation Status Comments Father Mother Social History Tobacco Use Types Packs/Day Years Used Date Smoking Tobacco: Every Day Cigarettes Alcohol Use Standard Drinks/Week Comments Yes 0 (1 standard drink = 0.6 oz pure alcohol) Alcoholic Drinks/day: Occasional social drink Sex and Gender Information Value Date Recorded Sex Assigned at Not on file Legal Sex Male 4:51 PM EST Gender Identity Not on file Sexual Orientation Not on file Plan of Treatment Upcoming Encounters Date Type Department Care Team (Late st Contact Info) Description 04/26/2025 11:30 AM EDT Office Visit [facility] [address] [address] Thai Pimentel MD [address] [address] Health Maintenance Due Date Last Done Comments Colorectal Cancer Screening: Annual FOBT 1998 Colorectal Cancer Screening: Colonoscopy 1998 Colorectal Cancer Screening: Sigmoidoscopy 1998 Influenza Vaccine (#1) 2025 1, 06/03/2020, 09/04/2019, Additional history exists Pneumococcal Vaccine: 50+ Years Completed 08/08/2017, 07/16/2014 Pneumococcal Vaccine: Peds (0 to 5 Years) and At-Risk Patients (6 to 49 Years) Discontinued 08/08/2017, 07/16/2014 Hepatitis B Vaccine Aged Out No longe r eligible based on patient's age to complete this topic Insurance [facility] ([id number]) Care Teams Detasseling Crew Supervisor Relationship Specialty Start Date End Date Elisa Diaz NP [address] [place] [phone] PCP - General Nurse Practitioner 09/20/24
--- NOTE | 2025-04-12 12:57 | CA_ITS ---
Transthoracic Echocardiogram Patient (Last, First, Middle): Shreyas Robles, Gender: Male Date of : 1950 Age: 74 Procedure Date: 04/12/2025 Procedure Type: Transthoracic Echocardiogram Location: OP Height: 165. cm Weight: 70.31 kg BSA: 1.77 m2 Heart Rate: 54 bpm BP: 145 / 65 mmHg Well Service Floor Worker: MARY KAY Referring MD: Daniel Christiansen NP Symptoms: I48.92 - Unspecified atrial flutter Study Quality: Adequate ECG Rhythm: Bradycardia Conclusions: - Normal left ventricular size, thickness, systolic function, and wall motion. The visually estimated ejection fraction is between 60-65%. - E/E prime ratio is between 8 and 15 consistent with indeterminate filling pressures. - Normal right ventricular cavity size and systolic function. - There is mild calcification of the aortic valve. Findings Left Ventricle Normal left ventricular size, thickness, systolic function, and wall motion. The visually estimated ejection fraction is between 60-65%. Abnormal diastolic function is noted. Spectral Doppler is indicative of an impaired relaxation filling pattern. E/E prime ratio is between 8 and 15 consistent with indeterminate filling pressures. Right Ventricle Normal right ventricular cavity size and systolic function. Atria The left atrium is normal in size. The right atrium is likely dilated. Aortic Valve There is a normal trileaflet aortic valve. There is mild calcification of the aortic valve. There is no aortic valve stenosis. There is no aortic valve regurgitation. Mitral Valve The mitral valve appears normal. There is no mitral valve regurgitation. There is no mitral valve stenosis. Pulmonic Valve The pulmonic valve is likely normal. Tricuspid Valve Normal tricuspid valve structure. There is no tricuspid valve regurgitation. Tricuspid regurgitation envelope is inadequate for calculation of right ventricular systolic pressure. Normal right atrial pressure. Great Vessels All visible segments of the aorta are normal in size. The visualized portions of the pulmonary artery and branches are normal. Venous The inferior vena cava is normal in size and collapses greater than 50% with inspiration. Pericardium/Pleural There is no evidence of pericardial effusion. Measurements 2D Linear Measurements IVSd: 1.07 0.6-0.9/0.6-1.0 cm LVIDd: 4.52 3.9-5.3/4.2-5.9 cm LVIDd Index: 2.55 2.4-3.2/2.2-3.1 cm/m2 LVIDs: 2.91 2.0-3.6 cm LVPWd: 0.93 0.7-1.1 cm LA Diam: 3.30 2.7-3.8/3.0-4.0 cm LAIDs Index: 1.86 1.5-2.3 cm/m2 LV Mass: 192.75 67-162/88-224 g LV Mass Index: 108.90 43-95/49-115 g/m2 LVOT Diam: 2.10 3.0+(-)1.3 cm 2D Systolic Function EF 4C: 69.30 >55% EF 2C: 72.60 >55% EF BiP: 71.20 >55% Mitral Valve MV Pk E: 0.60 MV PK A: 0.78 MV Decel Time: 327.00 E/A: 0.80 E'Lateral: 5.98 E'Medial: 5.22 E/E' Med: 11.60 E/E' Lat: 10.10 PHT: 96.00 MVA PHT: 2.29 Decel Gates: 1.84 Aortic Valve AoV Pk Isaac: 1.64 AoV Mn Isaac: 1.16 AoV VTI: 0.40 AoV Pk Grad: 11.00 Aov Mn Grad: 6.00 ALLEN Cont.VTI: 2.92 LVOT LVOT Pk Isaac: 1.59 LVOT Mn Isaac: 0.99 LVOT VTI: 0.34 LVOT Pk Grad: 10.00 LVOT Mn Grad: 5.00 LVOT Diam: 2.10 LVOT Area: 3.46 Diastolic Function MV Pk E: 0.60 MV Pk A: 0.78 E/A: 0.80 E'Medial: 5.22 E/E' Med: 11.60 E' Laterial: 5.98 E/E' Lat: 10.10 Right Ventricle TAPSE (mm): 28.10 TVS' Isaac: 15.80 Tricuspid Valve RA Press: 3.00 Great Vessels Aorta Sinus of Valsalva: 3.30 2.0-3.5 cm Ao Asc: 3.30 2.1-3.4 cm Ao Arch: 3.00 Pulmonary Valve PV Pk Isaac: 1.21 Peak PV Grad: 6.00 Updated in Other Vendor System with Status of Final Kan Vasquez MD electronically signed on 04/14/2025 11:35:23 PM with status of Final
== END ==
LOC: HO.CARD 12:51
DX: I48.92 Unspecified atrial flutter (principal)
CPT/HCPCS: 93306

== ENCOUNTER → 2025-04-12 12:57 | Outpatient (BNV) | payer OTHER, SELFPAY | PROVIDERS: Visit Provider Internal Medicine Cardiovascular Disease | DX: I48.92 Unspecified atrial flutter (principal); I35.8 Other nonrheumatic aortic valve disorders | CPT/HCPCS: 93306 ==

== ENCOUNTER 2025-06-12 14:02 | Outpatient (REF) | payer OTHER, SELFPAY ==
[2025-06-12 16:29] LABS: Hematocrit 37.4 % (42.0-52.0); Hemoglobin 12.9 g/dl (14.0-18.0); Mean Corpuscular HGB Conc 34.5 g/dl (31.0-36.0); Mean Corpuscular Hemoglobin 31.1 pg (27.0-33.0); Mean Corpuscular Volume 90.1 fL (80.0-98.0); NRBC Abs Auto 0.000 X10*3/uL (0.0-0.012); NRBC Pct Auto 0.0 /100WBC (0.0-0.2); Platelet Count 221 X10*3/uL (160-400); Red Blood Count 4.15 X10*6/uL (4.60-5.80); White Blood Count 9.0 X10*3/uL (4.8-10.8)
[2025-06-12 17:48] LABS: Prostate Specific Antigen 0.97 ng/mL (<0.05-4.0)
== END 2025-06-12 14:03 | disposition home or self-care (01) ==
LOC: HO.LAB 14:02
PROVIDERS: Absent Provider Internal Medicine Hematology & Oncology
DX: I48.92 Unspecified atrial flutter (principal); K92.2 Gastrointestinal hemorrhage, unspecified; C61 Malignant neoplasm of prostate; I10 Essential (primary) hypertension; F17.210 Nicotine dependence, cigarettes, uncomplicated; Z12.5 Encounter for screening for malignant neoplasm of prostate; Z79.02 Long term (current) use of antithrombotics/antiplatelets; Z79.899 Other long term (current) drug therapy; Z86.73 Personal history of transient ischemic attack (TIA), and cerebral infarction without residual deficits
CPT/HCPCS: 36415; 84153; 85027; 99212

== ENCOUNTER 2025-06-12 14:02 | Outpatient (AMB) | payer OTHER, SELFPAY ==
--- OUTSIDE RECORDS SUMMARY | 2024-09-03 11:30 | XMS_ITS ---
Author Organization [facility] Address [address] [place] [address] Care Team Providers Care Shingle Trimmer Name Role Phone SANTIAGO MAN Primary Care Provider Unavailable Yo Sheldon Unavailable [phone] Encounters Encounter Location Date Provider Diagnosis [facility] Inpatient [address], [place] [id number] 09/03/2024 Sheldon Ram Plan Of Treatment Next Appt Details Provider Name:Sheldon Estrada Ram , 06/14/2025 01:40:00 PM, [address], [address], [place], [address], Progress Notes * NANCISandra BETOOB:[birth year] (75 yo M)Acc No.[id number]:09/03/2024 EGD/MAC Patient: NICCI WEISSHAIL Provider: Susan Ram MD :1950 A ge:74 Y S ex:Male Date:09/03/2024 Address:[address] [place], [place] [id number] Pcp:aHl CAMACHO Subjective: * Chief Complaints: * * Medical History: Objective: * Vitals: Assessment: Plan: * Treatment: * * The named appointment provid er may or may not be the originator of this progress note, and it is not deemed complete until electronically signed by the appointment provider. Sign off status: Pending * Provider: Susan Ram MD Date: 11/04/2023 Generated for Saran Caballerog/Yonas on: 0 06/12/2025 05:13 PM EDT
--- OUTSIDE RECORDS SUMMARY | 2024-09-06 10:00 | XMS_ITS ---
Author Organization [facility] Address [address] [place] [address] Care Team Providers Care Pmp Project Manager Name Role Phone SANTIAGO MAN Primary Care Provider Unavailable Sheldon Ram Unavailable [phone] REASON FOR VISIT UGI bleed Encounters Encounter Location Date Provider Diagnosis [facility] [place] [facility] [address], [place] [phone] 09/06/2024 Sheldon Ram Plan Of Treatment Next Appt Details Provider Name:Sheldon Estrada Yo , 06/14/2025 01:40:00 PM, [address], [address], [place], [address], Progress Notes * BETO RAMÍREZOB:[birth year] (75 yo M)Acc No.[id number]:09/06/2024 EGD/MAC Patient: Sean DE LA PAZ MARIO Provider: Susan Ram MD :1950 A ge:74 Y S ex:Male Date:09/06/2024 Address:[address] [place], [place] [phone] Pcp:Hal CAMACHO Subjective: * Chief Complaints: * [...] 11/07/2023 Generated for Saran le/Ann/Cliffitting on: 0 06/12/2025 05:13 PM EDT
[2025-06-12 14:04] VITALS: BP 124/68; PULSE 55; BMI 24.7
--- NOTE | 2025-06-12 14:04 | A.OFFVIS_ITS ---
Vital Signs 06/12/25 14:04 Height 5 ft 6 in Weight 153 lb 0.013 oz BMI 24.7 BP 124/68 Blood Pressure Location Lt brachial Position Sitting Pulse 55 Pulse Source Pulse Oximeter Intake Visit Reasons: 3 month/ echo Supervisor Scouring Pads Services: Supervisor Scouring Pads Offered & Declined Project Financial Analyst: Project Financial Analyst Present Accompanied by: Daughter Allergies lisinopril (LISINOPRIL) Allergy (Unknown, Verified 06/12/25 14:10) ANGIOEDEMA Medication List - Last Reconciled 06/12/25 by Daniel Christiansen NP amlodipine 5 mg PO BID clopidogrel 75 mg PO DAILY cyclobenzaprine 5 mg PO BEDTIME PRN furosemide (Lasix) 20 mg PO DAILY gemfibrozil 600 mg PO BID lovastatin 40 mg PO DAILY metoprolol succinate ER 50 mg PO BEDTIME metoprolol succinate ER 50 mg PO DAILY omeprazole 20 mg PO BID quetiapine 300 mg PO BEDTIME tramadol 100 mg PO Q6H zolpidem 10 mg PO BEDTIME HPI Comments Details: This is a 75-year-old male patient coming in for a follow-up visit, accompanied by her daughter who helped with interpretation throughout the visit. Patient with a history of stroke in 2004 chronically on aspirin and Plavix, PVD, COPD, PUD, and atrial flutter. Patient was hospitalized back in September for GI bleed with no obvious source of bleeding and at that time aspirin and Plavix was stopped. Patient had refused catheter ablation and Watchman device with Dr. Henry. Later patient at the office visit agreed upon Watchman procedure for which patient was referred again to Dr. Henry but later patient again refusing this. Given patient's improved H&H patient was started on low-dose Eliquis therapy however patient was not tolerating this due to complaints of restless legs and therefore patient was restarted on Plavix and aspirin therapy. Later patient again reported darker stools for which aspirin was stopped and was left on Plavix therapy. Patient was referred to GI who saw the patient and is waiting on colonoscopy/EGD from [facility]. Today, patient is reporting ongoing dark stools otherwise is denying any cardiac symptoms of exertional chest pain, shortness of breath, palpitations, dizziness, orthopnea, PND, leg edema, presyncope, or syncope. Patient is reporting compliance with all his medications and unfortunately is continuing to smoke about 5-6 cigarettes a day. [facility] Medical History COPD (chronic obstructive pulmonary disease) PVD (peripheral vascular disease) Emphysema of lung HTN (hypertension) HLD (hyperlipidemia) Prostate cancer CVA (cerebral vascular accident) Surgical History Hx of prostate biopsy Hx of colonoscopy Hx of esophagogastroduodenoscopy Social History Household Members: Family Housing: House Are you a primary social worker palliative care to a significant other at home: No Do you presently have visiting nurse or other home services: No Comment: family in room Patient Tobacco Use Status: Current everyday Tobacco user Tobacco use type: Cigarette Cigarettes Per Day: 6 service: No Review of Systems Const Denies daytime sleepiness, Denies difficulty sleeping, Denies snoring, Denies stops breathing during sleep and Denies weakness Card Denies chest pain, Denies rapid heart rate, Denies irregular heart rhythm, Denies claudication, Denies leg edema, Denies lightheadedness, Denies palpitations, Denies dyspnea, Denies dyspnea on exertion, Denies orthopnea, Denies paroxysmal nocturnal dyspnea and Denies slow heart rate Resp Denies cough, Denies dyspnea, Denies dyspnea on exertion and Denies snoring GI Reports no additional complaints, Denies hematochezia, Denies change in stool character and Denies dyspepsia Musc Denies abnormal gait, Denies muscle weakness and Denies numbness Neuro Denies abnormal gait, Denies numbness and Denies weakness Endo Denies palpitations Physical Exam Vital Signs: Last Vital Signs Pulse 55 06/12/25 14:04 BP 124/68 06/12/25 14:04 BMI result Body Mass Index 24.7 Const General: cooperative, healthy appearing, comfortable and no acute distress Orientation/consciousness: patient oriented x3 HEENT Head: Yes normal to inspection Neck Neck: Yes normal visual inspection, Yes trachea midline and Yes supple Chest Chest palpation & inspection: normal inspection of the chest Resp Effort & Inspection: normal respiratory effort Auscultation: clear to auscultation bilaterally, no crackles, no rales, no rhonchi and no wheezes Cardio Jugular venous distension: no JVD Palpation: normal PMI Rate: regular rate Rhythm: regular rhythm Heart sounds: S1 normal heart sound present, S2 normal heart sound present, no click, no gallops, no murmurs and no rubs Peripheral pulses: Peripheral pulses 2+ throughout GI Inspection: Yes normal to inspection Palpation (GI): Soft to palpation Auscultation: normal bowel sounds Skin General skin exam: no rashes or lesions noted Neuro General: patient oriented x3 Extrem General: Yes normal to inspection, No no pedal edema and No calf tenderness Psych Appearance: grossly normal Mental Status: mental status grossly normal Speech and movement: Normal speech and movement present Assessment & Plan Assessment & Plan (1) Atrial flutter: Code(s): I48.92 - Unspecified atrial flutter Category: Medical (2) History of CVA (cerebrovascular accident): Code(s): Z86.73 - Personal history of transient ischemic attack (TIA), and cerebral infarction without residual deficits Category: Medical (3) HTN (hypertension): Code(s): I10 - Essential (primary) hypertension Category: Medical Plan EKG on 03/08/2025 showed normal sinus rhythm. Currently patient is only on Plavix therapy. Patient has seen GI for concerns about GI bleed. There waiting on patient's old colonoscopy and endoscopy reports. However in the meantime, patient's H&H have improved. They are also working him up for ferritin levels. Daughter is requesting a new order for CBC before seeing GI later this week. We will repeat this and if patient's H&H is stable then we can resume his aspirin. Patient continues to decline both Watchman procedure and catheter ablation with a complete understanding of his risks. Patient's echo at [facility] had a comment about mobile echogenic density at the base of left atrium and so patient's family requested a repeat echocardiogram. 04/12/2025-echo study showed normal LV systolic function with an ejection fraction between 60-65%, no wall motion abnormality, and mild calcification of the aortic valve. Daughter requesting a printout of this which was provided. Blood pressure today is well-controlled, continue current antihypertensive regimen. Advised monitoring blood pressures at home with a goal of less than 130/80. Advised heart healthy diet, exercise as tolerated, medication adherence, and emphasized on complete smoking cessation. Follow-up in 3 months, sooner if needed. In the interim, patient will call the office with any concerns or change in symptoms. This note was generated using voice recognition software. While every effort has been made to ensure accuracy and proper sustainability purchasing agent, there may be occasional errors that could affect the content or meaning of the described symptoms. Orders: Orders Complete Blood Count no Diff Today K92.2 - Gastrointestinal hemorrhage, unspecified Coding Level of Care Code Est Pt Level 4 (30059) Complex EM visit Add On G2211 Diagnoses Atrial flutter I48.92 History of CVA (cerebrovascular accident) Z86.73 HTN (hypertension) I10 Time Spent (min) 35 Comment Time spent in reviewing the chart, test results, assessment, counseling and documentation.
--- OUTSIDE RECORDS SUMMARY | 2025-06-12 17:13 | XMS_ITS ---
Author Name [facility] Organization Unknown Care Team Organization Name Specialty Phone Email Start Date End Da te [place] [facility] 08/10/202205/03
--- OUTSIDE RECORDS SUMMARY | 2025-06-12 17:13 | XMS_ITS | Patient Health Record ---
Author Organization [facility] Address [address] [place] [address] Care Team Providers Care Invoice Checker Name Role Phone SANTIAGO MAN Primary Care Provider Unavailable Sheldon Ram Unavailable [phone] Allergies Allergen (clinical drug ingredient) Drug/Non Drug Allergy documented on EMR Reaction Allergy Type Onset Date Status lisinopril Lisinopril Unknown Drug Allergy Activ e Results Component Value Reference Range Notes Ferritin Reviewed date:03/12/2025 04:06:13 PM Interpretation: Performing Lab:[facility], [address] [place] [phone] Notes/Report: Ferritin 27 20-250 ng/mL Vitamin B12 and Folate Reviewed date:03/12/2025 04:06:01 PM Interpretation: Performing Lab:[facility], [address] [place] [phone] Notes/Report: Vitamin B12 486 200-900 pg/mL NORMAL 200-900 PG/ML INDETERMINATE 160-199 PG/ML DEFICIENT < 160 PG/ML Folate 10.3 > or = 4.0 ng/mL Reference Values: > or = 4.0 ng/mL < 4.0 ng/mL suggests folate deficiency Methotrexate, aminopterin and folinic acid (leucovorin) are chemotherapeutic agents whose molecular structures are similar to folate; therefore, the Septic Tank [employer]er folate assay cannot be used for patients using these drugs. Complete Blood Count Auto Di ff Reviewed date:09/07/2024 04:30:46 PM Interpretation: Performing Lab:[facility], [address] [place] [phone] Notes/Report: White Blood Count 7.7 4.8-10.8 X10*3/uL Red Blood Count 4.39 4.60-5.80 X10*6/uL Hemoglobin 12.3 14.0-18.0 g/dl Hematocrit 37.9 42.0-52.0 % Mean Corpuscular Volume 86.3 80.0-98.0 fL Mean Corpuscular Hemoglobin 28.0 27.0-33.0 pg Mean Corpuscular HGB Conc 32.5 31.0-36.0 g/dl Red Cell Distribution Width 15.2 11.0-16.0 % Platelet Count 178 160-400 X10*3/uL Mean Platelet Volume 11.6 9.4-12.4 fL Neutrophils Percent Auto 53.7 45-73 % Imm Gran Pct Auto 0.4 0.0-0.4 % Lymphocytes Percent Auto 23.3 20-40 % Monocytes Percent Auto 16.8 2-11 % Eosinophils Percent Auto 5.1 0-4 % Basophils Percent Auto 0.7 0-2 % NRBC Pct Auto 0.0 0.0-0.2 /100WBC Neutrophils Absolute Auto 4.1 2.0-8.3 x10*3/u L Imm Gran Abs Auto 0.03 0.00-0.03 X10*3/uL Lymphocytes Absolute Auto 1.8 1.2-4.9 X10*3/u L Monocytes Absolute Auto 1.3 0.1-1.2 X10*3/uL Eosinophils Absolute Auto 0.4 0.0-0.4 X10*3/u L Basophils Absolute Auto 0.1 0.0-0.2 X10*3/uL NRBC Abs Auto 0.000 0.0-0.012 X10*3/uL Basic Metabolic Panel Fastin g Reviewed date:09/07/2024 04:30:39 PM Interpretation: Performing Lab:[facility], [address] [place] [phone] Notes/Report: Sodium 142 135-145 mmol/L Potassium 3.7 3.3-5.1 mmol/L Chloride 107 96-108 mmol/L Carbon Dioxide 25 22-29 mmol/L Anion Gap 14 12-20 Blood Urea Nitrogen 31 9-16 mg/dL Creatinine 1.53 0.5-1.4 mg/dL Creatinine Clr Calc Pharmacy 40.7 eGFR (calculated from the MDRD study equation) and eCrCl (calculated from the Cockcroft-Gault equation) are based on different parameters and may not yield comparable results. If eCrCl result is absurd, please check patient's height/weight. Estimated Glomerular Filt Rate 45 Chronic Kidney Disease: Estimated GFR < 60 mL/min/1.73m2 Severe Kidney Disease: Estimated GFR < 15 mL/min/1.73m2 Glucose Fasting 129 60-99 mg/dL A fasting glucose of 126 mg/dl or greater on more than one occasion is considered diagnostic of diabetes. Calcium 9.5 8.4-10.2 mg/dL Complete Blood Count Auto Di ff Reviewed date:03/24/2025 12:38:01 AM Interpretation: Performing Lab:[facility], [address] [place] [phone] Notes/Report: White Blood Count 17.6 4.8-10.8 X10*3/uL Red Blood Count 3.38 4.60-5.80 X10*6/uL Hemoglobin 10.5 14.0-18.0 g/dl Hematocrit 31.8 42.0-52.0 % Mean Corpuscular Volume 94.1 80.0-98.0 fL Mean Corpuscular Hemoglobin 31.1 27.0-33.0 pg Mean Corpuscular HGB Conc 33.0 31.0-36.0 g/dl Red Cell Distribution Width 13.4 11.0-16.0 % Platelet Count 252 160-400 X10*3/uL Mean Platelet Volume 12.3 9.4-12.4 fL Neutrophils Percent Auto 79.9 45-73 % Imm Gran Pct Auto 0.5 0.0-0.4 % Lymphocytes Percent Auto 7.7 20-40 % Monocytes Percent Auto 7.4 2-11 % Eosinophils Percent Auto 4.1 0-4 % Basophils Percent Auto 0.4 0-2 % NRBC Pct Auto 0.0 0.0-0.2 /100WBC Neutrophils Absolute Auto 14.0 2.0-8.3 x10*3/u L Imm Gran Abs Auto 0.08 0.00-0.03 X10*3/uL Lymphocytes Absolute Auto 1.4 1.2-4.9 X10*3/u L Monocytes Absolute Auto 1.3 0.1-1.2 X10*3/uL Eosinophils Absolute Auto 0.7 0.0-0.4 X10*3/u L Basophils Absolute Auto 0.1 0.0-0.2 X10*3/uL NRBC Abs Auto 0.000 0.0-0.012 X10*3/uL IRON PROFILE Reviewed date:03/24/2025 12:36:42 AM Interpretation: Performing Lab:[facility], [address] [place] [phone] Notes/Report: Iron 25 45-160 mcg/dL Total Iron Binding Capacity 356 228-428 mcg/d L Percent Iron Saturation 7 15-50 % Unsaturated Iron Binding 331 Reason For Referral No Information Medications Medication SIG (Take, Route, Frequency, Duration) Notes Start Date End Date Status Clopidogrel Bisulfate 75 MG 1 tablet Ora lly Once a day Active Cyclobenzaprine HCl 5 MG 1 tablet at bed time as needed Orally Once a day Active Eszopiclone 2 MG 1 tablet immediately before bedtime Orally Once a day Active Furosemide 20 MG 1 tablet Orally Once a day Active traMADol HCl 100 MG 1 tablet as needed Orally every 6 hrs Active QUEtiapine Fumarate 300 MG 1 tablet at b edtime Orally Once a day Active Aspirin Adult Low Dose 81 MG 1 tablet Or ally Once a day Active Omeprazole 20 MG 1 capsule 1/2 to 1 h our before morning meal Orally twice a day Active amLODIPine Besylate 5 MG 1 tablet Orally Once a day Active Gemfibrozil 600 MG 1 tablet 30 minutes before morning and evening meals Orally Twice a day Active Ipratropium-Albuterol 20-100 MCG/ACT 1 puff as needed Inhalation every 6 hrs Active Lovastatin 40 MG 1 tablet with the evening meal Orally Once a day Active Metoprolol Succinate ER 50 MG 1 tablet Orally twice a day Active Social History Tobacco Use: Social History Observation Description Date Details (start date - stop date) Current Smoker NA - NA Tobacco Control (Standard) Question Answer Notes Tobacco use: Current smoker How often do you smoke cigarettes? Every day How many cigarettes a day do you smoke? 6-10 Problems Problem Type SNOMED Code ICD Code Onset Dates Problem Status W/U Status Risk Notes Problem Chronic gastritis (0661872) Gastritis, chronic (K29.50) Active confirmed Problem Anemia (481336047) Anemia (D64.9) Active confirmed Problem Iron deficiency anemia due to chronic blood loss (334288048) Iron deficiency anemia due to chronic blood loss (D50.0) Active confirmed Vital Signs Blood pressure diastolic 77 mm Hg 03/12/2025 Height 66 in 03/12/2025 Blood pressure systolic 111 mm Hg 03/12/2025 Weight 162 lbs 03/12/2025 BMI 26.14 kg/m2 03/12/2025 Encounters Encounter Location Date Provider Diagnosis [facility] Inpatient [address], [place] [id number] 09/03/2024 Sheldon Ram [facility] Inpatient [address], [place] [id number] 09/06/2024 Sheldon Ram [facility] [address] [place] [phone] 03/12/2025 Sheldon Ram Anemia D64.9 [facility] [address] [place] [phone] 03/24/2025 Sheldon Ram Iron deficiency anemia due to chronic blood loss D50.0 [facility] [address] [place] [phone] 03/25/2025 Sheldon Ram Assessments Encounter Date Diagnosis (ICD Code) Assessment Notes Treatment Notes Treatment Clinical Notes Section Notes 03/12/2025 Anemia (ICD-10 - D64.9) Overall, Shreyas seems stable from a GI standpoint and is not having any particularly worrisome GI symptoms. The report of dark stool is hard to interpret at this time since he only has 1 bowel movement per week and his stool may be dark just from that. It is not entirely clear as to whether he is truly having melena. The slightly lower hemoglobin compared to January does not seem overly worrisome, particularly with a stable BUN. At this point I have recommended that we repeat a CBC and iron profile today to see where things are at compared to just last week. Clearly if the blood count has continued to drop then we may need to intervene sooner with a repeat upper endoscopy and/or colonoscopy. However, hopefully if things are stable I would rather try to obtain records from [facility] in regard to his relatively recent GI procedures there so we do not repeat anything that is not necessary. I did advise him to continue his Plavix and low-dose aspirin for the time being as long as things are stable. He will continue his omeprazole as well. I did advise him to obviously avoid all NSAIDs and to ideally stop smoking. I have given him an appointment to see me again in the next 2 to 3 months but will be in touch with him and his daughter regarding his blood work and any records I get from [facility] such that we can determine whether or not he might need sooner intervention with a colonoscopy and possibly repeat upper endoscopy. We did review the possibility of a small bowel capsule study if need be as well depending upon his clinical course. We did review that obviously if he has significant signs of bleeding he would need to stop his blood thinners completely. Shreyas and his daughter were comfortable with this plan. Thank you again for allowing me to participate in Shreyas's care. I shall continue to keep you advised of his progress. 03/24/2025 Iron deficiency anemia due to chronic blood loss (ICD-10 - D50.0) 03/12/2025 Other Need any colonoscopy/u pper endoscopy/pat h reports [facility] Overall, Shreyas seems stable from a GI standpoint and is not having any particularly worrisome GI symptoms. The report of dark stool is hard to interpret at this time since he only has 1 bowel movement per week and his stool may be dark just from that. It is not entirely clear as to whether he is truly having melena. The slightly lower hemoglobin compared to January does not seem overly worrisome, particularly with a stable BUN. At this point I have recommended that we repeat a CBC and iron profile today to see where things are at compared to just last week. Clearly if the blood count has continued to drop then we may need to intervene sooner with a repeat upper endoscopy and/or colonoscopy. However, hopefully if things are stable I would rather try to obtain records from [facility] in regard to his relatively recent GI procedures there so we do not repeat anything that is not necessary. I did advise him to continue his Plavix and low-dose aspirin for the time being as long as things are stable. He will continue his omeprazole as well. I did advise him to obviously avoid all NSAIDs and to ideally stop smoking. I have given him an appointment to see me again in the next 2 to 3 months but will be in touch with him and his daughter regarding his blood work and any records I get from [facility] such that we can determine whether or not he might need sooner intervention with a colonoscopy and possibly repeat upper endoscopy. We did review the possibility of a small bowel capsule study if need be as well depending upon his clinical course. We did review that obviously if he has significant signs of bleeding he would need to stop his blood thinners completely. Shreyas and his daughter were comfortable with this plan. Thank you again for allowing me to participate in Shreyas's care. I shall continue to keep you advised of his progress. Plan Of Treatment Pending Test Test Name Order Date IRON + IBC (FE) 03/12/2025 CBC w DIFF 03/12/2025 CBC w DIFF 03/24/2025 Next Appt Details Provider Name:Sheldon Ram , 06/14/2025 01:40:00 PM, [address] [place] [address], [address], [place], [phone], Insurance Providers Payer Name Payer Address Payer Phone Subscriber Number Group Number Insured Name Patient Relationship to Insured Coverage Start Date Coverage End Date [facility] [address] [place] [address] [id number] SHREYAS RAMÍREZ Self - patient is the insured Medical (General) History Medical History History ICD Code COPD Peripheral vascular disease--s/p attempt ed angioplasty according to daughter Hypertension Hyperlipidemia Prostate cancer- [facility] jacob / [facility] radiation Prediabetes Stroke 2004 x 2--had a temporary PEG Denies [place],DM,renal disease Atrial fibrillation Surgical History Surgery Date(Month/Year)
--- OUTSIDE RECORDS SUMMARY | 2025-06-12 17:13 | XMS_ITS | Clinical Summary ---
Author Organization [facility] Address [address] [place] [address] Phone Care Team Providers Care Palliative Nurse Name Role Phone Elisa Vazquez NP Primary Care Provider [phone] Allergies Active Allergy Reactions Criticality Noted Date [...] takes tramadol for this Prostate cancer ([facility] V24, [facility] V28) 09/16 Impaired fasting glucose 03/05/2016 [...] Unilateral atherosclerotic r enal artery stenosis ([facility] V24) 01/05/2012 GERD (gastroesophageal reflux disease) 1 CAD (coronary artery disease) 10/22/2010 Dyslipidemia 10/22/2010 Dysphagia as late effect of cerebrovascular acci dent (CVA) 10/22/2010 Overview (10/17/2024): 2006. Minimal residual swallowing difficulty, deep voice and slightly slower speech per daughter, otherwise full strength HTN (hypertension) 10/22/2010 Overview (10/17/2024): ABPM 03/2018 controlled BP, c/w white coat syndrome PVD (peripheral vascular disease) ([facility] V24) 10/22/2010 Immunizations Name Administration Dates [...] Dr. Perez COLONOSCOPY W/ BIOPSIES 08/28/2018 PROCEDURE: TX COLONOSCOPY STOMA W/BIOPSY SINGLE/MULTIPLE; COMMENT: Diminutive adenoma and hemorrhoids; repeat under propofol in 5 yrs ESOPHAGOGASTRODUODENOSCOPY 08/28/18 Lizette PROCEDURE: TX ESOPHAGOGASTRODUODENOSCOPY TRANSORAL DIAGNOSTIC; COMMENT: Mild Schatzki ring, [...] Date Smoking Tobacco: Every Day Cigarettes 1 71.2 Started: 1955 Smokeless Tobacco: Never Alcohol Use [...] Care Team (Late st Contact Info) Description 06/21/2025 11:15 AM EDT Office Visit [facility] Hematology Oncology [address] [place] [address] Luis Flores MD [address] [place] [address] Health Maintenance Due Date Last Done Comments COVID-19 Vaccine (#1) 1955 Zoster Vaccines (1 of 2) 1968 Falls Risk Assessment 09/11/2022 Medicare Annual Wellness Visit 09/11/2022 Social Influencers of Health Screening 09/11/2022 RSV Immunization Adult Patients (1 - 1-dose 75+ series) 2024 Depression Screening 10/03/2024 Lung Cancer Screening (Low Dose CT) 02/19/2025 [...] Pneumococcal Vaccine: 50+ Years Completed 08/08/2017, 07/16/2014 HIB Vaccines Aged Out No longer eligi [...] 11/09/2024 10:03 AM EST Prostate cancer ([facility] V24, [facility] V[facility]) CT LUNG SCREENING LOW DOSE Routine 02/20/2024 11:00 AM EDT Encounter for screening for malignant neoplasm of respiratory organs COLONOSCOPY Routine 10/22/2022 LIPID PANEL Routine 01/13/2021 HEPATITIS C SCREENING Routine 01/03/2015 from Last 3 Months or Most Recently Relevant to Health Maintenance Results * (ABNORMAL) Comprehensive metabolic panel (11/09/2024 10:03 AM EST) Sodium 140 133 - 145 mmol/L LAB CHEMISTRY METHOD 11/09/2024 12:59 PM [facility] Potassium 4.0 3.5 - 5.5 mmol/L LAB CHEMISTRY METHOD 11/09/2024 12:59 PM [facility] Chloride 109 96 - 110 mmol/L LAB CHEMISTRY METHOD 11/09/2024 12:59 PM [facility] CO2 24 21 - 32 mmol/L LAB CHEMISTRY METHOD 11/09/2024 12:59 PM [facility] Anion Gap 7 3 - 11 LAB CHEMISTRY METHOD 11/09/2024 12:59 PM [facility] Glucose 135(H) 70 - 100 mg/dL LAB CHEMISTRY METHOD 11/09/2024 12:59 PM [facility] BUN 17 5 - 25 mg/dL LAB CHEMISTRY METHOD 11/09/2024 12:59 PM [facility] Creatinine 1.25 0.70 - 1.30 mg/dL LAB CHEMISTRY METHOD 11/09/2024 12:59 PM [facility] eGFR 60 >=60 mL/min/1. 73m2 LAB CHEMISTRY METHOD 11/09/2024 12:59 PM [facility] Comment:Calculation based on the Chronic Kidney Disease Epidemiology Collaboration (CKD-EPI) equation refit without adjustment for race. BUN/Creatinine Ratio 13.6 LAB CHEMISTRY METHOD 11/09/2024 12:59 PM [facility] Calcium 10.1 8.5 - 10.5 mg/dL LAB CHEMISTRY METHOD 11/09/2024 12:59 PM [facility] AST (SGOT) 44(H) 10 - 42 unit/L LAB CHEMISTRY METHOD 11/09/2024 12:59 PM [facility] ALT (SGPT) 37 10 - 60 unit/L LAB CHEMISTRY METHOD 11/09/2024 12:59 PM [facility] Alkaline Phosphatase 114 42 - 121 unit/L LAB CHEMISTRY METHOD 11/09/2024 12:59 PM [facility] Total Protein 7.2 6.0 - 8.0 g/dL LAB CHEMISTRY METHOD 11/09/2024 12:59 PM [facility] Albumin 3.9 3.2 - 5.0 g/dL LAB CHEMISTRY METHOD 11/09/2024 12:59 PM [facility] Total Bilirubin 0.5 0.0 - 1.4 mg/dL LAB CHEMISTRY METHOD 11/09/2024 12:59 PM [facility] Blood Venous blood specimen / Unknown Venipuncture / Unknown 11/09/2024 10:03 AM EST 11/09/2024 12:29 PM EST us Luis Flores MD LAB BLOOD ORDERABLES Final Result [facility] [address] [place] [address], [place] [phone] * CT LUNG SCREENING LOW DOSE (02/20/2024 11:00 AM EDT) Anatomical Region Laterality Modality Computed Tomogra phy 02/17/2024 1:16 PM EDT Narrative 02/20/2024 11:00 AM EDT [facility] Diagnostic Imaging Department [address] [place] [address] Patient: DESTINIMANUELMARIO /Age/Sex: 1950 - 73 - M Unit#: [id number] [facility] Ordering Physician: ISIS GARCIA MD [...] Procedure Note Femi Trinh MD - 05/21/2024 [facility] Diagnostic Imaging Department [address] [place] [id number] Patient: ALVARO RAMÍREZAIDE CooperB./Age/Sex: 1950 - 73 - M Unit#: [id number] Location/Status: [facility] CLI Mnemonic/Ordering Site: [facility] Ordering Physician: ISIS GARCIA MD [...] Sign date/Time: 02/20/24 1100 Isis Garcia MD [facility]ED[place] Final Result * Colonoscopy (10/22/2022) Colonoscopy negative, abstracted Anatomical Region Laterality Modality Other Tati Provider HEALTH MAINTENANCE Final Result * (ABNORMAL) Lipid panel (01/13/2021) LDL/HDL Ratio 3 0 - 4 Triglycerides 272(A) 0 - 150 mg/dL Cholesterol 172 0 - 200 mg/dL HDL 52 >=40 mg/dL LDL Cholesterol 66 0 - 100 mg/dL Blood Venous blood specimen / Unknown Historical Provider LAB BLOOD ORDERABLES Karla l Result * Hepatitis C Screening (01/03/2015) Hepatitis C Screening abstracted Historical Provider HEALTH MAINTENANCE Final Result from Last 3 Months or Most Recently Relevant to Health Maintenance Insurance [facility] [employer] Member Subscriber Plan / Payer (Ef fective 2024-Present) Name:Mario Ramírez Relation to Subscriber:Self Name:Mario Ramírez Payer ID:[id number] Group ID:Not on file Type:Not on file Address: [address] [place] [address] [employer] MEDICARE Member Subscriber Plan / Payer ( fective 2023-Present) Name:Mario Ramírez Relation to Subscriber:Self Name:Mario Ramírez Payer ID:[id number] Group ID:[id number] Type:Not on file Address: [address] [place] [address] Care Teams Palliative Nurse Relationship Specialty Start Date End Date Elisa Vazquez NP [address] [place] [address] PCP - General 09/15/22
== END 2025-06-12 14:45 | disposition home or self-care (01) ==
DX: I48.92 Unspecified atrial flutter (principal); Z86.73 Personal history of transient ischemic attack (TIA), and cerebral infarction without residual deficits; I10 Essential (primary) hypertension
CPT/HCPCS: 99214; G2211